=== PATIENT | male | born 1965 | race Caucasian/White ===

== ENCOUNTER 2016-09-24 22:24 | Inpatient (IN) ==
--- NOTE | 2016-09-25 00:18 | Emergency Department Note ---
Disposition Clinical Impression: Colon cancer, ARAM (acute kidney injury), Dehydration Disposition: Admitted As Inpatient Condition: Fair Time of Disposition: 05:08 General Adult HPI - General Chief complaint: ED General Medical Stated complaint: cramping in hand/legs/ nausea Time Seen by Provider: 09/25/16 00:14 Source: patient Mode of arrival: private vehicle Limitations: no limitations Nursing Notes Reviewed: Yes Vital Signs Reviewed: Yes - History of Present Illness HPI Narrative: 51-year-old male patient presents to the emergency department with cramping in his hands and lower extremities. Patient states that he is concerned that he is possibly dehydrated. He also describes some intermittent nausea with vomiting and abdominal pain. Patient states that the abdominal pain is normal for him, as he is status post partial colectomy secondary to rectal cancer. Patient was diagnosed approximately 10 years ago, he is not currently undergoing any chemotherapy. He has not had any issues with his colostomy site. He denies any chest pain or shortness of breath. He denies any fever, chills, cough or night sweats. Patient states a very significant decrease in appetite over the last 3 days and "have not been able to eat or drink, or keep anything down the last 24 hours." Onset (ago): day(s) (3) Location: other (Generalized) Radiation: non-radiation Pain Severity: moderate Pain Scale: 6 Quality: aching, dull, constant Consistency: constant Improves with: nothing Worsens with: nothing Associated symptoms: Reports: loss of appetite, nausea/vomiting Treatments Prior to Arrival: none - Related Data Previous Rx's Medication Instructions Recorded Megestrol Acetate [Megace] 400 mg PO DAILY #300 mls 01/03/16 Amlodipine [Norvasc] 10 mg PO DAILY #30 tablet 08/16/16 Lisinopril [Zestril] 5 mg PO DAILY #30 tablet 08/16/16 Metoclopramide [Reglan] 10 mg PO QIDAC #60 tablet 08/16/16 OLANZapine [Zyprexa Zydis] 5 mg PO HS #30 tab.rapdis 08/16/16 Pantoprazole Sodium [Protonix] 40 mg PO Q12H #60 tablet. 08/16/16 Promethazine [Phenergan] 12.5 mg PO Q6HR PRN #20 tablet 08/16/16 Sennosides/Docusate Sodium [Senna 1 each PO BID #30 tablet 08/16/16 Plus] Oxycodone HCl [Oxycontin] 80 mg PO Q12H #120 tab.er.12h 08/23/16 Magnesium Oxide [Mag-Ox] 400 mg PO DAILY #10 tablet 09/12/16 Oxycodone HCl [Roxicodone 30 MG 1 - 2 tab PO Q6HR PRN #180 tab 09/13/16 Immed Release] Sulfamethoxazole/Trimeth DS 1 each PO BID #14 tablet 09/13/16 [Bactrim DS] Amoxicillin/Clavulanate [Augmentin] 875 mg PO BIDWM #14 tablet 09/24/16 Ondansetron ODT [Zofran ODT] 1 - 2 tab PO Q6H #30 tab.rapdis 09/24/16 Allergies Allergy/AdvReac Type Severity Reaction Status Date / Time meperidine [From Demerol] Allergy Vomiting Verified 09/25/16 03:50 nalbuphine [From Nubain] Allergy See Verified 09/24/16 22:46 Comments All systems ED: reviewed and negative except as stated. Constitutional: Denies: fever, chills Cardiovascular: Denies: chest pain Respiratory: Denies: cough, dyspnea Gastrointestinal: Reports: nausea, vomiting. Denies: abdominal pain, diarrhea, constipation Musculoskeletal: Denies: back pain, neck pain Integumentary: Denies: rash, abrasion, lesions Neurological: Denies: headache Psychiatric: Denies: anxiety, depression, suicidal thoughts, homicidal thoughts Past Medical History - Past Medical History Attestation: Yes The following information was validated with the patient. Source: patient, nursing notes reviewed Medical history: Reports: arthritis, cancer, GERD, hyperlipidemia, hypertension , malignancy, osteoporosis, renal disease Surgical history: Reports: cancer surgery, colectomy, colostomy, prostatectomy, other Psychiatric history: Reports: no psych history - Social History Smoking Status: Never smoker Smokeless Tobacco Status: No Alcohol use: Reports: none Drug use: Reports: none Physical Exam - General Limitations: no limitations General appearance: alert, in no apparent distress - Head Head exam: atraumatic, normocephalic, normal inspection - Eye Eye exam: Present: normal appearance, PERRL - Neck Neck exam: Present: normal inspection, full ROM, trachea midline - Chest Chest inspection: Present: normal inspection, symmetric chest wall rise - Respiratory Respiratory exam: Present: normal lung sounds bilaterally. Absent: respiratory distress, wheezes, stridor, accessory muscle use - Cardiovascular Cardiovascular exam: Present: regular rate, normal rhythm, normal heart sounds - Abdominal Exam Abdominal exam: Present: soft, Non-Tender, normal bowel sounds, other ( Colostomy bag noted, no corresponding erythema or cellulitis. Nephrostomy tubes noted no evidence of infection.). Absent: distention, guarding, rebound, rigidity - Extremities Exam Extremities exam: Present: normal inspection, full ROM - Neurological Exam Neurological exam: Present: alert, oriented X3 - Psychiatric Psychiatric exam: Present: normal affect, normal mood - Skin Skin exam: Present: warm, dry, intact, normal color Course - Consultations Consultation #1: Discussed patient with hospitalist, he accepts. Vital Signs Temperature 97.2 F L 09/24/16 22:46 Pulse Rate 100 09/24/16 22:46 Respiratory Rate 18 09/24/16 22:46 Blood Pressure 84/61 09/24/16 22:46 O2 Sat by Pulse Oximetry 96 09/24/16 22:46 Temperature 0 F L 09/25/16 04:27 Pulse Rate 82 09/25/16 03:47 Respiratory Rate 16 09/25/16 04:27 Blood Pressure 93/63 09/25/16 04:27 O2 Sat by Pulse Oximetry 100 09/25/16 03:47 Oxygen Delivery Oxygen Delivery Room Air Medical Decision Making - Lab Data Lab results reviewed: Yes I reviewed the patient's lab results. Result diagrams: 09/25/16 00:43 09/25/16 00:43 Lab Results 09/25/16 09/25/16 09/25/16 Range/Units 00:43 00:43 02:06 WBC 14.5 H D (4.3-11.1) K/mcL RBC 4.65 (4.19-5.50) M/mcL Hgb 12.9 D (12.9-16.9) g/dL Hct 41.1 (37.5-50.1) % MCV 88.4 (83.0-100.0) fL MCH 27.7 L (28.0-33.3) pg MCHC 31.4 L (31.6-35.5) g/dL RDW 15.3 H (11.5-14.5) % Plt Count 565 H D (140-400) K/mcL MPV 10.1 (9.4-12.4) fL Immature Gran % 1.2 (0-4) % Seg Neutrophils % 81.5 % Lymphocytes % 11.4 % Monocytes % 5.3 % Eosinophils % 0.1 % Basophils % 0.5 % Neutrophils # 11.8 H (1.6-8.9) K/mcL Lymphocytes # 1.7 (0.6-4.6) K/mcL Monocytes # 0.8 (0.0-1.3) K/mcL Eosinophils # 0.0 (0.0-0.6) K/mcL Basophils # 0.1 (0.0-0.2) K/mcL Sodium 129 L (136-145) mEq/L Potassium 4.5 (3.5-4.5) mEq/L Chloride 95 L (98-109) mEq/L Carbon Dioxide 13 L (19-29) mEq/L BUN 36 H (8-26) mg/dL Creatinine 3.80 H (0.72-1.25) mg/dL Est GFR ( Amer) 20 L (> 60) Est GFR (Non-Af Amer) 17 L (> 60) BUN/Creatinine Ratio 9 (6-26) Glucose 135 H (70-99) mg/dL Calculated Osmolality 278 L (280-300) Calcium 9.9 (8.6-10.8) mg/dL Total Bilirubin 0.3 (0.2-1.2) mg/dL AST 12 (5-34) Units/L ALT 12 (0-55) Units/L Alkaline Phosphatase 115 (38-126) Units/L Serum Total Protein 9.5 H (6.0-8.3) g/dL Albumin 3.4 L (3.5-5.0) g/dL Globulin 6.1 H (2.4-3.5) g/dL Albumin/Globulin Ratio 0.6 L (1.1-2.2) Urine Color Red A (Yellow) Urine Clarity Turbid A (Clear) Urine pH 7.0 (5.0-8.0) pH Units Ur Specific [place] 1.019 (1.010-1.025) Urine Protein >=300 H (Neg-Trace) mg/dL Urine Glucose (UA) Normal (Normal) mg/dL Urine Ketones Trace H (Negative) mg/dL Urine Blood Large H (Negative) Urine Nitrite Negative (Negative) Urine Bilirubin Small H (Negative) Urine Urobilinogen Normal (Normal) mg/dL Ur Leukocyte Esterase Large H (Negative) Urine Microscopic RBC 0-3 (0-3) per hpf Urine Microscopic WBC TNTC H (0-3) per hpf Ur Squamous Epith Cells Many H (None-Few) per lpf Urine Bacteria Many H (None-Few) per hpf Hyaline Casts None Seen (None-Few) per lpf Urine Yeast Many H (None Seen) per hpf Ur Culture Indicated? YES A (NO) Attestation Statement - Attestation Attestation: Dr. Davis note: Patient seen in conjunction with JUDE Diaz; please see his chart for complete documentation. I spent [id number] time with the patient and I agree with the patient's treatment and disposition. Patient has had vomiting for the past 3 days. No pain no diarrhea. He has had small bowel obstructions which were nonsurgical incident. The time he had abdominal pain and has no abdominal pain at this time. At baseline he is on chemotherapy for bowel cancer. No altered mental status. No neutropenia. No headache or neck stiffness. Admitted in stabilized and improved condition for acute renal insufficiency secondary to volume loss and dehydration. Any additional consults will be at the discretion of the hospitalist
[2016-09-25] MEDS ORDERED: Ondansetron 4 MG/2 ML VIAL IV ONE (00:23)
[2016-09-25] MEDS ORDERED: 0.9 % Sodium Chloride 2,000 ML IVC ONE (00:23)
[2016-09-25] MEDS ORDERED: *HR* HYDROmorphone (PF) 1 MG/ML SYRINGE IV ONE ×2 (00:23→02:13)
[2016-09-25 00:50] LABS: Basophils # 0.1 K/mcL (0.0-0.2); Basophils % 0.5 %; Eosinophils % 0.1 %; Hematocrit 41.1 % (37.5-50.1); Hemoglobin 12.9 g/dL (12.9-16.9); Immature Granulocytes % 1.2 % (0-4); Lymphocytes # 1.7 K/mcL (0.6-4.6); Lymphocytes % 11.4 %; Mean Corpuscular HGB Conc 31.4 g/dL (31.6-35.5); Mean Corpuscular Hemoglobin 27.7 pg (28.0-33.3); Mean Corpuscular Volume 88.4 fL (83.0-100.0); Mean Platelet Volume 10.1 fL (9.4-12.4); Monocytes # 0.8 K/mcL (0.0-1.3); Monocytes % 5.3 %; Neutrophils # 11.8 K/mcL (1.6-8.9); Platelet Count 565 K/mcL (140-400); Red Blood Count 4.65 M/mcL (4.19-5.50); Red Cell Distribution Width 15.3 % (11.5-14.5); Segmented Neutrophils % 81.5 %
[2016-09-25 01:05] LABS: Albumin 3.4 g/dL (3.5-5.0); Albumin/Globulin Ratio 0.6 (1.1-2.2); Bilirubin,Total 0.3 mg/dL (0.2-1.2); Calcium 9.9 mg/dL (8.6-10.8); Globulin 6.1 g/dL (2.4-3.5); Potassium 4.5 mEq/L (3.5-4.5); Total Protein 9.5 g/dL (6.0-8.3)
[2016-09-25 02:22] LABS: Bilirubin,Urine Small (Negative); Blood,Urine Large (Negative); Clarity,Urine Turbid (Clear); Color,Urine Red (Yellow); Glucose,Urine (UA) Normal (Normal); Ketones,Urine Trace mg/dL (Negative); Leukocyte Esterase,Urine Large (Negative); Nitrite,Urine Negative (Negative); Protein,Urine >=300 mg/dL (Neg-Trace); Specific Gravity,Urine 1.019 (1.010-1.025); Urobilinogen,Urine Normal (Normal)
[2016-09-25 02:24] LABS: Bacteria,Urine Many per hpf (None-Few); Squamous Epithelial Cell,Urine Many per lpf (None-Few); WBC,Urine TNTC per hpf (0-3)
[2016-09-25 02:45] LABS: Hyaline Casts,Urine None Seen per lpf (None-Few); RBC,Urine 0-3 per hpf (0-3); Yeast,Urine Many per hpf (None Seen)
[2016-09-25] MEDS ORDERED: 0.9 % Sodium Chloride 1,000 ML IVC ONE (02:57)
[2016-09-25] MEDS ORDERED: *HR* Meperidine 50 MG/ML SYRINGE IVP ONE (03:24)
[2016-09-25] MEDS ORDERED: *HR* Promethazine 25 MG/ML VIAL IVP ONE (03:37)
[2016-09-25] MEDS ORDERED: Metoclopramide 10 MG/2 ML VIAL IV ONE (03:37)
[2016-09-25 08:14] LABS: Hematocrit 29.8 % (37.5-50.1); Mean Corpuscular HGB Conc 32.6 g/dL (31.6-35.5); Mean Corpuscular Hemoglobin 28.4 pg (28.0-33.3); Mean Corpuscular Volume 87.4 fL (83.0-100.0); Mean Platelet Volume 9.7 fL (9.4-12.4); Platelet Count 305 K/mcL (140-400); Red Blood Count 3.41 M/mcL (4.19-5.50); Red Cell Distribution Width 15.1 % (11.5-14.5)
[2016-09-25 08:16] LABS: Hemoglobin 9.7 g/dL (12.9-16.9)
[2016-09-25 08:25] LABS: Potassium 4.2 mEq/L (3.5-4.5)
[2016-09-25 08:26] LABS: Calcium 7.8 mg/dL (8.6-10.8)
[2016-09-25] MEDS: *HR* Morphine 2 MG/ML SYRINGE IVP PRN ×3 (08:43→23:45)
[2016-09-25] MEDS: 0.9 % Sodium Chloride 1,000 ML IVC SCH ×2 (08:43→20:06)
[2016-09-25] MEDS: *HR* OxyCODONE ER (12 HR) 40 MG TABLET PO SCH ×2 (11:59→20:02)
[2016-09-25] MEDS ORDERED: *HR* Promethazine 25 MG/ML VIAL IVP PRN (13:39)
[2016-09-25] MEDS ORDERED: Ondansetron 4 MG/2 ML VIAL IVP PRN (13:39)
[2016-09-25] MEDS ORDERED: Naloxone 0.4 MG/ML INJ IVP PRN (13:39)
[2016-09-25] MEDS ORDERED: 0.9 % Sodium Chloride 1,000 ML IVC SCH (13:45)
--- NOTE | 2016-09-25 13:48 | Internal Med History&Physical ---
Date of Encounter: 09/27/16 Time of Encounter: 13:47 Assessment and Plan (1) ARAM (acute kidney injury) Current visit: Yes Status: Acute Likely secondary to Dehydration improving creat. will continue present treatment. (2) Dehydration Current visit: Yes Status: Acute likely pre renal and will continue fluids (3) Nausea & vomiting Current visit: No Status: Acute improved with present medications Qualifiers: Vomiting type: unspecified Vomiting Intractability: unspecified Qualified Code(s): R11.2 - Nausea with vomiting, unspecified (4) Urinary tract infection Current visit: No Status: Acute on Ceftraxione. Qualifiers: Urinary tract infection type: catheter-associated UTI Indwelling urinary catheter type: nephrostomy catheter Encounter type: subsequent encounter Qualified Code(s): T83.512D - Infection and inflammatory reaction due to nephrostomy catheter, subsequent encounter; N39.0 - Urinary tract infection, site not specified Internal Medicine - H&P: HPI Chief complaint: dehydration Admitted From: Emergency Dept Plans for Post Hospital Care: Home History of present illness: Oncologist : Dr Jhonny Linn PMH: Multiple comorbid conditions, rectal cancer, Colotomy bag and bilateral nephrostomy tubes present. HPI: came to ER for worsening cramping in upper lower extremities and extreme dehydration. was having persistent nausea and vomiting. Did not eat for more than 2 days. denies chest pain, palpitations or diarrhea. course in ER : evaluated in ER and noted that he has ARAM likely secondary to prerenal issue. reason for admission : Acute worsening dehydration with ARAM Past Med Surg Social Fam HX - Past Medical History Medical history: arthritis, cancer, GERD, hyperlipidemia, hypertension, malignancy, osteoporosis, renal disease Psychiatric history: no psych history - Past Surgical History Surgical History: cancer surgery, colectomy, colostomy, prostatectomy, other - Social History Smoking Status: Never smoker Smokeless Tobacco Status: No Alcohol use: none Drug use: none - Family History Son Living Status: Still Living Hx Family Cancer: Yes (mother had breast cancer) Internal Medicine - H&P: Meds Megestrol Acetate [Megace] 400 mg PO DAILY #300 mls 01/03/16 [Rx] Amlodipine [Norvasc] 10 mg PO DAILY #30 tablet 08/16/16 [Rx] Lisinopril [Zestril] 5 mg PO DAILY #30 tablet 08/16/16 [Rx] Metoclopramide [Reglan] 10 mg PO QIDAC #60 tablet 08/16/16 [Rx] OLANZapine [Zyprexa Zydis] 5 mg PO HS #30 tab.rapdis 08/16/16 [Rx] Pantoprazole Sodium [Protonix] 40 mg PO Q12H #60 tablet. 08/16/16 [Rx] Promethazine [Phenergan] 12.5 mg PO Q6HR PRN #20 tablet 08/16/16 [Rx] Sennosides/Docusate Sodium [Senna Plus] 1 each PO BID #30 tablet 08/16/16 [Rx] Oxycodone HCl [Oxycontin] 80 mg PO Q12H #120 tab.er.12h 08/23/16 [Rx] Magnesium Oxide [Mag-Ox] 400 mg PO DAILY #10 tablet 09/12/16 [Rx] Oxycodone HCl [Roxicodone 30 MG Immed Release] 1 - 2 tab PO Q6HR PRN #180 tab [Rx] Amoxicillin/Clavulanate [Augmentin] 875 mg PO BIDWM #14 tablet 09/24/16 [Rx] Ondansetron ODT [Zofran ODT] 1 - 2 tab PO Q6H #30 tab.rapdis 09/24/16 [Rx] Allergies meperidine [From Demerol] Allergy (Verified 09/25/16 03:50) Vomiting nalbuphine [From Nubain] Allergy (Verified 09/24/16 22:46) See Comments All Systems PM: A 10-system review of systems was performed and is negative for pertinent findings except as documented above in the HPI. - Constitutional Constitutional: no chills, no fever(s), no night sweats - EENT Eyes: no change in vision, no discharge, no pain, no photophobia Ears: no ear discharge, no ear pain, no tinnitus Nose, mouth and throat: no dysphagia, no nasal discharge, no neck pain, no sore throat - Cardiovascular Cardiovascular ROS IM: no chest pain, no diaphoresis, no dyspnea, no lightheadedness, no palpitations, no syncope - Respiratory Respiratory: no cough, no dyspnea, no wheezing, no excessive phlegm production - Gastrointestinal Gastrointestinal: no abdominal pain, no diarrhea, no hematemesis, no hematochezia, no melena, no nausea, no vomiting - Musculoskeletal Musculoskeletal ROS IM: no numbness, no tingling - Integumentary Integumentary IM: no rash, no unusual bruising - Neurological Neurological ROS: no confusion, no convulsions, no focal weakness, no numbness, no tingling, no tremor(s) - Hematologic/Lymphatic Hematologic/Lymphatic: no easy bruising - Constitutional Vitals: Temp Pulse Resp BP Pulse Ox 98.8 F 70 16 95/59 100 09/25/16 11:47 09/25/16 11:47 09/25/16 11:47 09/25/16 11:47 09/25/16 11:47 General appearance: Present: A&O X 3, pleasant, no acute distress, answers questions appropriately - Head Head exam: Present: atraumatic, normocephalic - Eye Eye exam: Present: PERRL, conjuntiva pink, sclera anicteric Pupils: Present: PERRL - Neck Neck exam general surgery: Present: supple, trachea midline. Absent: lymphadenopathy - Respiratory Respiratory exam: Present: CTAB. Absent: accessory muscle use, rales, rhonchi, wheezes - Cardiovascular Cardiovascular exam: Present: RRR, +S1, +S2. Absent: diastolic murmur, gallop, rubs, systolic murmur - GI/Abdominal GI/Abdominal exam: Present: normal bowel sounds, soft, no peritoneal signs. Absent: distended, tenderness - Extremities Exam Extremities exam: Present: warm, radial pulses palpable and symetrical. Absent : calf tenderness, cyanotic, pedal edema - Neurological Exam Neurological exam: Present: CN II-XII intact, oriented X3, no focal deficits. Absent: pronater drift, facial droop, speech deficit - Skin Skin exam: Present: dry, intact Internal Med - H&P Results - Labs CBC & Chem 7: 09/27/16 05:02 09/27/16 05:02 Labs: Short CBC 09/25/16 Range/Units 08:04 WBC 8.7 (4.3-11.1) K/mcL Hgb 9.7 L D (12.9-16.9) g/dL Hct 29.8 L (37.5-50.1) % Plt Count 305 (140-400) K/mcL BMP 09/25/16 08:04 Sodium 131 L Potassium 4.2 Chloride 106 Carbon Dioxide 13 L BUN 37 H Creatinine 2.78 H Glucose 91 Calcium 7.8 L D - Impressions ITS Impressions Retroperitoneum Ultrasound 09/25/16 10:30 IMPRESSION: Severe right-sided hydronephrosis. There appear to be shadowing calculi within the left kidney without hydronephrosis. Incidental note made of cholelithiasis. D/ / Juan M Schwartz MD / Juan M Schwartz MD Interpreting Provider: Juan M Schwartz MD
[2016-09-25] MEDS: OLANZapine 5 MG TAB.RAPDIS PO SCH (20:03)
[2016-09-26] MEDS: *HR* Morphine 2 MG/ML SYRINGE IVP PRN ×5 (03:55→21:24)
[2016-09-26 04:01] LABS: Basophils % 0.7 %; Eosinophils % 0.5 %; Hematocrit 27.6 % (37.5-50.1); Hemoglobin 8.7 g/dL (12.9-16.9); Immature Granulocytes % 0.7 % (0-4); Lymphocytes # 1.1 K/mcL (0.6-4.6); Lymphocytes % 19.6 %; Mean Corpuscular HGB Conc 31.5 g/dL (31.6-35.5); Mean Corpuscular Hemoglobin 28.3 pg (28.0-33.3); Mean Corpuscular Volume 89.9 fL (83.0-100.0); Mean Platelet Volume 9.7 fL (9.4-12.4); Monocytes # 0.5 K/mcL (0.0-1.3); Monocytes % 8.9 %; Platelet Count 246 K/mcL (140-400); Red Blood Count 3.07 M/mcL (4.19-5.50); Segmented Neutrophils % 69.6 %
[2016-09-26 04:28] LABS: Albumin/Globulin Ratio 0.6 (1.1-2.2); Bilirubin,Total 0.2 mg/dL (0.2-1.2); Calcium 7.9 mg/dL (8.6-10.8); Chol/HDL Ratio 3.3 (0-4.9); Globulin 3.9 g/dL (2.4-3.5); Magnesium 1.1 mg/dL (1.6-2.6); Potassium 4.2 mEq/L (3.5-4.5)
[2016-09-26 04:29] LABS: Albumin 2.2 g/dL (3.5-5.0); Total Protein 6.1 g/dL (6.0-8.3)
[2016-09-26] MEDS: *HR* OxyCODONE ER (12 HR) 40 MG TABLET PO SCH ×2 (05:41→18:08)
[2016-09-26] MEDS: Pantoprazole 40 MG VIAL IVP SCH (08:27)
[2016-09-26] MEDS: amLODIPine 5 MG TABLET PO SCH (08:28)
[2016-09-26] MEDS: 0.9 % Sodium Chloride 1,000 ML IVC SCH ×2 (08:28→18:08)
--- NOTE | 2016-09-26 09:25 | Internal Med Progress Note ---
Date of Encounter: 09/26/16 Time of Encounter: 09:22 - Assessment and plan (1) ARAM (acute kidney injury) Current Visit: Yes Status: Acute Assessment and plan: Likely secondary to Dehydration improving creat. will continue present treatment. 09/26/2016 creat continue to improve clinically feeling better tolerated liquid by mouth and did not throw up. will continue IV fluids and will advance diet. (2) Dehydration Current Visit: Yes Status: Acute Assessment and plan: skin turger is better eating well. (3) Nausea & vomiting Current Visit: No Status: Acute Assessment and plan: improved a lot. did not had any vomiting since admission tolerating liquid diet and will advance diet. Qualifiers: Vomiting type: unspecified Vomiting Intractability: unspecified Qualified Code(s): R11.2 - Nausea with vomiting, unspecified (4) Urinary tract infection Current Visit: No Status: Acute Assessment and plan: will continue abx Ceftriaxone Day 2 urine culture grossly contaminated and unable to read will continue IV abx for 3 days. will continue oral followed. all together for 7 days. Qualifiers: Urinary tract infection type: catheter-associated UTI Indwelling urinary catheter type: nephrostomy catheter Encounter type: subsequent encounter Qualified Code(s): T83.512D - Infection and inflammatory reaction due to nephrostomy catheter, subsequent encounter; N39.0 - Urinary tract infection, site not specified - Subjective Interval history: seen and examined. no new complaints. has sacral ulcer and will get wound care - Constitutional Vitals: Temp Pulse Resp BP Pulse Ox 98.1 F 64 16 96/58 99 09/26/16 08:00 09/26/16 08:00 09/26/16 08:00 09/26/16 08:00 09/26/16 08:00 General appearance: Present: A&O X 3, pleasant, no acute distress, answers questions appropriately - Head Head exam: Present: atraumatic, normocephalic - Eye Eye exam: Present: PERRL, conjuntiva pink, sclera anicteric Pupils: Present: PERRL - Neck Neck exam general surgery: Present: supple, trachea midline. Absent: lymphadenopathy - Respiratory Respiratory exam: Present: CTAB. Absent: accessory muscle use, rales, rhonchi, wheezes - Cardiovascular Cardiovascular exam: Present: RRR, +S1, +S2. Absent: diastolic murmur, gallop, rubs, systolic murmur - GI/Abdominal GI/Abdominal exam: Present: normal bowel sounds, soft, no peritoneal signs. Absent: distended, tenderness - Extremities Exam Extremities exam: Present: warm, radial pulses palpable and symetrical. Absent : calf tenderness, cyanotic, pedal edema - Neurological Exam Neurological exam: Present: CN II-XII intact, oriented X3, no focal deficits. Absent: pronater drift, facial droop, speech deficit - Skin Skin exam: Present: dry, intact Internal Medicine: Result - Labs CBC & Chem 7: 09/26/16 03:45 09/26/16 03:45 Labs: Short CBC 09/26/16 Range/Units 03:45 WBC 5.7 (4.3-11.1) K/mcL Hgb 8.7 L (12.9-16.9) g/dL Hct 27.6 L (37.5-50.1) % Plt Count 246 (140-400) K/mcL Neutrophils # 4.0 (1.6-8.9) K/mcL BMP 09/26/16 03:45 Sodium 137 Potassium 4.2 Chloride 114 H Carbon Dioxide 14 L BUN 24 D Creatinine 1.84 H Glucose 85 Calcium 7.9 L Liver Function 09/26/16 Range/Units 03:45 Total Bilirubin 0.2 (0.2-1.2) mg/dL AST 11 (5-34) Units/L ALT 8 (0-55) Units/L Alkaline Phosphatase 70 (38-126) Units/L Albumin 2.2 L D (3.5-5.0) g/dL - Impressions Impressions Retroperitoneum Ultrasound 09/25/16 10:30 IMPRESSION: Severe right-sided hydronephrosis. There appear to be shadowing calculi within the left kidney without hydronephrosis. Incidental note made of cholelithiasis. D/ / Juan M Schwartz MD / Juan M Schwartz MD Interpreting Provider: Juan M Schwartz MD Consult Discharge Plan - Plan Referrals: NO,PCP [Primary Care Provider] -
[2016-09-26] MEDS: OLANZapine 5 MG TAB.RAPDIS PO SCH (21:24)
[2016-09-27] MEDS: *HR* Morphine 2 MG/ML SYRINGE IVP PRN ×5 (01:17→21:35)
[2016-09-27] MEDS: 0.9 % Sodium Chloride 1,000 ML IVC SCH ×3 (04:55→10:57)
[2016-09-27 05:11] LABS: Basophils # 0.1 K/mcL (0.0-0.2); Basophils % 0.9 %; Eosinophils # 0.1 K/mcL (0.0-0.6); Eosinophils % 1.6 %; Hematocrit 29.3 % (37.5-50.1); Hemoglobin 9.1 g/dL (12.9-16.9); Immature Granulocytes % 0.9 % (0-4); Lymphocytes # 1.2 K/mcL (0.6-4.6); Lymphocytes % 21.1 %; Mean Corpuscular HGB Conc 31.1 g/dL (31.6-35.5); Mean Corpuscular Hemoglobin 28.1 pg (28.0-33.3); Mean Corpuscular Volume 90.4 fL (83.0-100.0); Mean Platelet Volume 9.9 fL (9.4-12.4); Monocytes # 0.5 K/mcL (0.0-1.3); Monocytes % 9.1 %; Neutrophils # 3.8 K/mcL (1.6-8.9); Platelet Count 262 K/mcL (140-400); Red Blood Count 3.24 M/mcL (4.19-5.50); Segmented Neutrophils % 66.4 %
[2016-09-27] MEDS: *HR* OxyCODONE ER (12 HR) 40 MG TABLET PO SCH ×2 (05:57→18:51)
[2016-09-27 08:33] LABS: BUN/Creatinine Ratio 10 (6-26); Calcium 7.8 mg/dL (8.6-10.8); Carbon Dioxide 13 mEq/L (19-29); Chloride 115 mEq/L (98-109); Glucose 89 mg/dL (70-99); Osmolality,Calculated 279 (280-300); Potassium 4.4 mEq/L (3.5-4.5); Sodium 135 mEq/L (136-145); eGFR For African Americans > 60 (> 60); eGFR For Non-African Americans > 60 (> 60)
[2016-09-27 08:34] LABS: Blood Urea Nitrogen 12 mg/dL (8-26)
[2016-09-27] MEDS: amLODIPine 5 MG TABLET PO SCH (08:39)
[2016-09-27] MEDS: Pantoprazole 40 MG VIAL IVP SCH (08:39)
--- NOTE | 2016-09-27 16:44 | Oncology Inp Consult Note ---
Date of Encounter: 09/27/16 Time of Encounter: 12:00 Assessment and Plan (1) Colon cancer Status: Chronic Assessment and plan: Metastatic colon cancer, status post multiple surgeries and chemotherapy currently on palliative cetuximab weekly tolerated with hospitalization with infections or renal insufficiency, anemia. Acute renal insufficiency prerenal component, resolving with hydration. Nausea and vomiting has improved. He is able to keep at this oral intake today. Advance diet as tolerated. Retroperitoneal ultrasound showing a right hydronephrosis. Nephrostomy tubes were changed in July 2016, drainage appears to be clear. To be evaluated by urology for any intervention. Chemotherapy held today due to hospitalization/infectious episodes. Kgsdrtipv-[id number]-e/p transfusion recently, Hgb stable, no evidence clinically for bleeding Discussed plan of care with patient and attending in charge Dr Orourke. Qualifiers: Colon location: overlapping sites Qualified Code(s): C18.8 - Malignant neoplasm of overlapping sites of colon - Data of Consult Requesting Physician: Damon Orourke MD Primary Care Provider: PCP NO - Consult Narrative Reason for consult: metastatic colon cancer History of present illness: PAtient with rectal cancer diagnosed in 2006, s/p neoadjuvant chemotherapy and radiation with 5-FU, followed by a resection and permanent colostomy at [facility] followed by additional therapy with FOLFOX. Ct in February 23, 2013 showed moderate presacral soft tissue density which was approximately 3 cm. There was a rightward nodular enhancement withn concern for malignancy and recommendation for PET-CT. PET showed a hypermetabolic right presacral soft tissue mass with concern for recurrent disease, and recommendation for biopsy. He received cycle 1 on 04/17/2013 complicated by skin reaction and severe nausea , bx sowed KRAS wild type and so panitumumab was added to cycle 2 given on 05/01 without 5-FU bolus. He had severe skin toxicity from 5-FU and transitioned to irinotecan plus panitumumab. Completed 4 cycles of FOLFIRI + panitumumab with marked decline in his CEA and some improvement in his MRI. He had pelvic exenteration in July 2013 where he was found to have bony involvement that was jama[place]-knifed and clipped at the time of surgery. He had adjuvant radiation to a small field in his pelvis along the bone with xeloda but CEA would rise on his radiation. received a single dose of Panitumumab on 11/10/2013. This was complicated by severe diarrhea, fatigue, and a break from his radiation for a week. He was continued without additional panitumumab and completed radiation in November 2013. He developed bilateral ureteral obstruction and renal failure. s/ p bilateral percutaneous stents placed and treated for urosepsis. He was taken to the operating room for lysis of adhesions and stenting of his ureters in July 2014. neeeding external drainage. Pathology from his surgery was negative for recurrence but his CEA has been steadily rising. He has had pelvic abscess and was drained by IR and placed on ABX for MRSA. He has had continued increase in his CEA. CT from October 2014 showed his complex pelvic fluid collection and some shotty LAD but no obvious mass. He has had a CT-guided biopsy of this area which has confirmed recurrent adenocarcinoma. Surgery has stated there is no options for him surgically. He has been on weekly cetuximab with normalization of his CEA. He has developed a large stage IV sacral decubitus ulcer. 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 During prior hospitalization, his cultures have grown linette. He was hospitalized 08/10--had positive urine cultures with linette species, was admitted for intractable nausea and vomiting, along with abdominal pain secondary to underlying malignancy and constipation. Patient continued his outpatient treatment for the drained pelvic abscess with Linezolid. He was treated with Micafungin for UTI. Constipation was resolved after initiation of laxatives. He was Rx with linezolid a s/p nephrostomy tubes changed Ct no hydro, stable soft tissue changes in the pelvis 08/10 Patient was hospitalized due to poor oral intake nausea vomiting and acute renal insufficiency. His creatinine was up to 3 when he was hospitalized with hydration improved He has felt slightly better every day as his lab parameters have shown improvement. The discoloration of drainage in nephrostomy?tube that has now cleared on abx Past Med Surg Social Fam HX - Past Medical History Medical history: arthritis, cancer, GERD, hyperlipidemia, hypertension, malignancy, osteoporosis, renal disease Psychiatric history: no psych history - Past Surgical History Surgical History: cancer surgery, colectomy, colostomy, prostatectomy, other - Social History Smoking Status: Never smoker Smokeless Tobacco Status: No Alcohol use: none Drug use: none - Family History Son Living Status: Still Living Hx Family Cancer: Yes (mother had breast cancer) Medications and Allergies Megestrol Acetate [Megace] 400 mg PO DAILY #300 mls 01/03/16 [Rx] Amlodipine [Norvasc] 10 mg PO DAILY #30 tablet 08/16/16 [Rx] Lisinopril [Zestril] 5 mg PO DAILY #30 tablet 08/16/16 [Rx] Metoclopramide [Reglan] 10 mg PO QIDAC #60 tablet 08/16/16 [Rx] OLANZapine [Zyprexa Zydis] 5 mg PO HS #30 tab.rapdis 08/16/16 [Rx] Pantoprazole Sodium [Protonix] 40 mg PO Q12H #60 tablet.dr 08/16/16 [Rx] Promethazine [Phenergan] 12.5 mg PO Q6HR PRN #20 tablet 08/16/16 [Rx] Sennosides/Docusate Sodium [Senna Plus] 1 each PO BID #30 tablet 08/16/16 [Rx] Oxycodone HCl [Oxycontin] 80 mg PO Q12H #120 tab.er.12h 08/23/16 [Rx] Magnesium Oxide [Mag-Ox] 400 mg PO DAILY #10 tablet 09/12/16 [Rx] Oxycodone HCl [Roxicodone 30 MG Immed Release] 1 - 2 tab PO Q6HR PRN #180 tab [Rx] Amoxicillin/Clavulanate [Augmentin] 875 mg PO BIDWM #14 tablet 09/24/16 [Rx] Ondansetron ODT [Zofran ODT] 1 - 2 tab PO Q6H #30 tab.rapdis 09/24/16 [Rx] Allergies meperidine [From Demerol] Allergy (Verified 09/25/16 03:50) Vomiting nalbuphine [From Nubain] Allergy (Verified 09/24/16 22:46) See Comments Review of systems: as in HPI. Generalized wkness and fatigue. Pain rt lower abd from tumor. Oncology - Exam - Constitutional Vitals: Temp Pulse Resp BP Pulse Ox 97.2 F L 74 16 107/65 100 09/27/16 15:55 09/27/16 15:55 09/27/16 15:55 09/27/16 15:55 09/27/16 15:55 General appearance: thin Exam: fatigued, pallor+ - Head Head exam: Present: atraumatic, normal inspection - Eye Eye exam: Present: sclera anicteric - ENT ENT exam: Present: mucous membranes moist - Neck Neck exam: Present: full ROM - Respiratory Respiratory exam: Present: CTAB - Cardiovascular Cardiovascular exam: Present: +S1, +S2 - GI/Abdominal GI/Abdominal exam: Present: normal bowel sounds, soft Additional comments: nephrostomy bags clear drainage. IRINA drain with whitish material - Extremities Exam Extremities exam: Present: normal inspection - Neurological Exam Neurological exam: Present: alert, CN II-XII intact, oriented X3, no focal deficits Oncology - Results - Labs Labs: Short CBC 09/27/16 Range/Units 05:02 WBC 5.7 (4.3-11.1) K/mcL Hgb 9.1 L (12.9-16.9) g/dL Hct 29.3 L (37.5-50.1) % Plt Count 262 (140-400) K/mcL Neutrophils # 3.8 (1.6-8.9) K/mcL BMP 09/27/16 05:02 Sodium 135 L Potassium 4.4 Chloride 115 H Carbon Dioxide 13 L BUN 12 D Creatinine 1.18 Glucose 89 Calcium 7.8 L Consult Discharge Plan - Plan Referrals: NO,PCP [Primary Care Provider] -
--- NOTE | 2016-09-27 17:54 | Internal Med Progress Note ---
Date of Encounter: 09/27/16 Time of Encounter: 17:51 - Assessment and plan (1) ARAM (acute kidney injury) Current Visit: Yes Status: Acute Assessment and plan: Likely secondary to Dehydration improving creat. will continue present treatment. 09/26/2016 creat continue to improve clinically feeling better tolerated liquid by mouth and did not throw up. will continue IV fluids and will advance diet. 09/27/2016 creat normalized. will get Urology tomorrow for hydronephrosis on right side. case discussed with Dr Barry (2) Dehydration Current Visit: Yes Status: Acute Assessment and plan: skin turger is better eating well. (3) Nausea & vomiting Current Visit: No Status: Acute Assessment and plan: improved a lot. did not had any vomiting since admission tolerating liquid diet and will advance diet. Qualifiers: Vomiting type: unspecified Vomiting Intractability: unspecified Qualified Code(s): R11.2 - Nausea with vomiting, unspecified (4) Urinary tract infection Current Visit: No Status: Acute Assessment and plan: will continue abx Ceftriaxone Day 3 urine culture grossly contaminated and unable to read will continue IV abx for 3 days. will continue oral followed. all together for 7 days. Qualifiers: Urinary tract infection type: catheter-associated UTI Indwelling urinary catheter type: nephrostomy catheter Encounter type: subsequent encounter Qualified Code(s): T83.512D - Infection and inflammatory reaction due to nephrostomy catheter, subsequent encounter; N39.0 - Urinary tract infection, site not specified - Subjective Interval history: seen and examined. no new complaints. has sacral ulcer and will get wound care 09/27/2016 no new complaints. eating well no nausea or vomiting. - Constitutional Vitals: Temp Pulse Resp BP Pulse Ox 97.2 F L 74 16 107/65 100 09/27/16 15:55 09/27/16 15:55 09/27/16 15:55 09/27/16 15:55 09/27/16 15:55 General appearance: Present: A&O X 3, pleasant, no acute distress, answers questions appropriately - Head Head exam: Present: atraumatic, normocephalic - Eye Eye exam: Present: PERRL, conjuntiva pink, sclera anicteric Pupils: Present: PERRL - Neck Neck exam general surgery: Present: supple, trachea midline. Absent: lymphadenopathy - Respiratory Respiratory exam: Present: CTAB. Absent: accessory muscle use, rales, rhonchi, wheezes - Cardiovascular Cardiovascular exam: Present: RRR, +S1, +S2. Absent: diastolic murmur, gallop, rubs, systolic murmur - GI/Abdominal GI/Abdominal exam: Present: normal bowel sounds, soft, no peritoneal signs. Absent: distended, tenderness - Extremities Exam Extremities exam: Present: warm, radial pulses palpable and symetrical. Absent : calf tenderness, cyanotic, pedal edema - Neurological Exam Neurological exam: Present: CN II-XII intact, oriented X3, no focal deficits. Absent: pronater drift, facial droop, speech deficit - Skin Skin exam: Present: dry, intact Internal Medicine: Result - Labs CBC & Chem 7: 09/27/16 05:02 09/27/16 05:02 Labs: Short CBC 09/27/16 Range/Units 05:02 WBC 5.7 (4.3-11.1) K/mcL Hgb 9.1 L (12.9-16.9) g/dL Hct 29.3 L (37.5-50.1) % Plt Count 262 (140-400) K/mcL Neutrophils # 3.8 (1.6-8.9) K/mcL BMP 09/27/16 05:02 Sodium 135 L Potassium 4.4 Chloride 115 H Carbon Dioxide 13 L BUN 12 D Creatinine 1.18 Glucose 89 Calcium 7.8 L - VTE Documentation of Mechanical Device: Intermittent pneumatic compression device Consult Discharge Plan - Plan Referrals: NO,PCP [Primary Care Provider] -
[2016-09-27] MEDS: OLANZapine 5 MG TAB.RAPDIS PO SCH (20:24)
[2016-09-28] MEDS: 0.9 % Sodium Chloride 1,000 ML IVC SCH ×3 (01:48→22:43)
[2016-09-28] MEDS: *HR* Morphine 2 MG/ML SYRINGE IVP PRN ×3 (01:48→15:15)
[2016-09-28 03:52] LABS: Basophils # 0.1 K/mcL (0.0-0.2); Basophils % 0.7 %; Eosinophils # 0.1 K/mcL (0.0-0.6); Eosinophils % 1.3 %; Hematocrit 30.8 % (37.5-50.1); Hemoglobin 9.7 g/dL (12.9-16.9); Lymphocytes # 1.4 K/mcL (0.6-4.6); Lymphocytes % 20.8 %; Mean Corpuscular HGB Conc 31.5 g/dL (31.6-35.5); Mean Corpuscular Hemoglobin 28.4 pg (28.0-33.3); Mean Corpuscular Volume 90.1 fL (83.0-100.0); Mean Platelet Volume 9.6 fL (9.4-12.4); Monocytes # 0.5 K/mcL (0.0-1.3); Monocytes % 7.8 %; Neutrophils # 4.7 K/mcL (1.6-8.9); Platelet Count 278 K/mcL (140-400); Red Blood Count 3.42 M/mcL (4.19-5.50); Segmented Neutrophils % 68.4 %
[2016-09-28 04:06] LABS: Alanine Aminotransferase 7 Units/L (0-55); Albumin 2.2 g/dL (3.5-5.0); Albumin/Globulin Ratio 0.5 (1.1-2.2); Alkaline Phosphatase 64 Units/L (38-126); Aspartate Amino Transferase 10 Units/L (5-34); BUN/Creatinine Ratio 8 (6-26); Bilirubin,Total 0.1 mg/dL (0.2-1.2); Blood Urea Nitrogen 9 mg/dL (8-26); Calcium 8.1 mg/dL (8.6-10.8); Carbon Dioxide 14 mEq/L (19-29); Chloride 117 mEq/L (98-109); Globulin 4.4 g/dL (2.4-3.5); Glucose 97 mg/dL (70-99); Osmolality,Calculated 287 (280-300); Potassium 4.3 mEq/L (3.5-4.5); Sodium 139 mEq/L (136-145); Total Protein 6.6 g/dL (6.0-8.3); eGFR For African Americans > 60 (> 60); eGFR For Non-African Americans > 60 (> 60)
[2016-09-28] MEDS: *HR* OxyCODONE ER (12 HR) 40 MG TABLET PO SCH ×2 (06:07→17:48)
[2016-09-28] MEDS: amLODIPine 5 MG TABLET PO SCH (08:47)
[2016-09-28] MEDS: Pantoprazole 40 MG VIAL IVP SCH (08:47)
[2016-09-28] MEDS ORDERED: 0.9 % Sodium Chloride 500 ML ONE (13:38)
--- NOTE | 2016-09-28 14:36 | IR Procedure Note ---
Date of procedure: 09/28/16 Consent Obtained: Written consent Timeout: Correct patient and procedure verified, Correct site verified, Time out performed, Skin prep completed Local anesthetic: Lidocaine 1% Indications: Right hydro, tube maintenance Procedure Performed: Exchange bilateral pcn and urostomy Results/Findings: Rt PCN out, able to recanalize and place pcn. report to follow Complications: None; Tolerated procedure well (Monitor on floor)
--- NOTE | 2016-09-28 17:59 | Urology - Consult Note ---
Date of Encounter: 09/28/16 Time of Encounter: 17:57 - Assessment and Plan (1) Hydronephrosis Current Visit: Yes Status: Acute Assessment and plan: Bilateral nephrostomy tubes currently in place draining clear urine. No further urological intervention needed. 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 Patient has been managed with bilateral nephrostomy tubes for the past 3 years. He is currently undergoing chemotherapy for metastatic colon cancer. He arrived to the hospital and found a renal ultrasound to have significant right-sided hydronephrosis. Patient was not dilated by interventional radiology and the nephrostomy tube was repositioned. Patient is feeling much better. Past Med Surg Social Fam HX - Past Medical History Medical history: arthritis, cancer, GERD, hyperlipidemia, hypertension, malignancy, osteoporosis, renal disease Psychiatric history: no psych history - Past Surgical History Surgical History: cancer surgery, colectomy, colostomy, prostatectomy, other - Social History Smoking Status: Never smoker Smokeless Tobacco Status: No Alcohol use: none Drug use: none - Family History Son Living Status: Still Living Hx Family Cancer: Yes (mother had breast cancer) Medications and Allergies Megestrol Acetate [Megace] 400 mg PO DAILY #300 mls 01/03/16 [Rx] Amlodipine [Norvasc] 10 mg PO DAILY #30 tablet 08/16/16 [Rx] Lisinopril [Zestril] 5 mg PO DAILY #30 tablet 08/16/16 [Rx] Metoclopramide [Reglan] 10 mg PO QIDAC #60 tablet 08/16/16 [Rx] OLANZapine [Zyprexa Zydis] 5 mg PO HS #30 tab.rapdis 08/16/16 [Rx] Pantoprazole Sodium [Protonix] 40 mg PO Q12H #60 tablet. 08/16/16 [Rx] Promethazine [Phenergan] 12.5 mg PO Q6HR PRN #20 tablet 08/16/16 [Rx] Sennosides/Docusate Sodium [Senna Plus] 1 each PO BID #30 tablet 08/16/16 [Rx] Oxycodone HCl [Oxycontin] 80 mg PO Q12H #120 tab.er.12h 08/23/16 [Rx] Magnesium Oxide [Mag-Ox] 400 mg PO DAILY #10 tablet 09/12/16 [Rx] Oxycodone HCl [Roxicodone 30 MG Immed Release] 1 - 2 tab PO Q6HR PRN #180 tab [Rx] Amoxicillin/Clavulanate [Augmentin] 875 mg PO BIDWM #14 tablet 09/24/16 [Rx] Ondansetron ODT [Zofran ODT] 1 - 2 tab PO Q6H #30 tab.rapdis 09/24/16 [Rx] Allergies meperidine [From Demerol] Allergy (Verified 09/25/16 03:50) Vomiting nalbuphine [From Nubain] Allergy (Verified 09/24/16 22:46) See Comments Review of Systems - Constitutional no chills - EENT Nose, mouth and throat: no dizziness - Cardiovascular no chest pain - Respiratory no cough - Gastrointestinal abdominal pain - Musculoskeletal no back pain - Integumentary no erythema - Neurological no confusion Exam Initial Vital Signs Temp Pulse Resp BP Pulse Ox 97.2 F L 100 18 84/61 96 09/24/16 22:46 09/24/16 22:46 09/24/16 22:46 09/24/16 22:46 09/24/16 22:46 - General physical appearance Present: well developed - Eyes Present: PERRL - ENT Present: normal nares - Neck Present: no masses - Respiratory Present: normal respiratory effort - Cardiovascular Cardiovascular exam IM: RRR - Abdomen Abdomen: Present: soft - Additional Findings back: bilateral pcn tubes in place. Urology Results - Labs 09/28/16 02:30 09/28/16 02:30 Abnormal lab results RBC 3.42 M/mcL (4.19-5.50) L 09/28/16 02:30 Hgb 9.7 g/dL (12.9-16.9) L 09/28/16 02:30 Hct 30.8 % (37.5-50.1) L 09/28/16 02:30 MCHC 31.5 g/dL (31.6-35.5) L 09/28/16 02:30 RDW 15.0 % (11.5-14.5) H 09/28/16 02:30 Chloride 117 mEq/L (98-109) H 09/28/16 02:30 Carbon Dioxide 14 mEq/L (19-29) L 09/28/16 02:30 Calcium 8.1 mg/dL (8.6-10.8) L 09/28/16 02:30 Magnesium 1.1 mg/dL (1.6-2.6) L 09/26/16 03:45 Total Bilirubin 0.1 mg/dL (0.2-1.2) L 09/28/16 02:30 Albumin 2.2 g/dL (3.5-5.0) L 09/28/16 02:30 Globulin 4.4 g/dL (2.4-3.5) H 09/28/16 02:30 Albumin/Globulin Ratio 0.5 (1.1-2.2) L 09/28/16 02:30 HDL Cholesterol 26 mg/dL (40-59) L 09/26/16 03:45 Urine Color Red (Yellow) A 09/25/16 02:06 Urine Clarity Turbid (Clear) A 09/25/16 02:06 Urine Protein >=300 mg/dL (Neg-Trace) H 09/25/16 02:06 Urine Ketones Trace mg/dL (Negative) H 09/25/16 02:06 Urine Blood Large (Negative) H 09/25/16 02:06 Urine Bilirubin Small (Negative) H 09/25/16 02:06 Ur Leukocyte Esterase Large (Negative) H 09/25/16 02:06 Urine Microscopic WBC TNTC per hpf (0-3) H 09/25/16 02:06 Ur Squamous Epith Cells Many per lpf (None-Few) H 09/25/16 02:06 Urine Bacteria Many per hpf (None-Few) H 09/25/16 02:06 Urine Yeast Many per hpf (None Seen) H 09/25/16 02:06 Ur Culture Indicated? YES (NO) A 09/25/16 02:06 Diabetes panel 09/28/16 Range/Units 02:30 Sodium 139 (136-145) mEq/L Potassium 4.3 (3.5-4.5) mEq/L Chloride 117 H (98-109) mEq/L Carbon Dioxide 14 L (19-29) mEq/L BUN 9 (8-26) mg/dL Creatinine 1.16 (0.72-1.25) mg/dL Glucose 97 (70-99) mg/dL Calcium 8.1 L (8.6-10.8) mg/dL AST 10 (5-34) Units/L ALT 7 (0-55) Units/L Alkaline Phosphatase 64 (38-126) Units/L Albumin 2.2 L (3.5-5.0) g/dL Calcium panel 09/28/16 Range/Units 02:30 Calcium 8.1 L (8.6-10.8) mg/dL Albumin 2.2 L (3.5-5.0) g/dL Pituitary panel 09/28/16 Range/Units 02:30 Sodium 139 (136-145) mEq/L Potassium 4.3 (3.5-4.5) mEq/L Chloride 117 H (98-109) mEq/L Carbon Dioxide 14 L (19-29) mEq/L BUN 9 (8-26) mg/dL Creatinine 1.16 (0.72-1.25) mg/dL Glucose 97 (70-99) mg/dL Calcium 8.1 L (8.6-10.8) mg/dL Adrenal panel 09/28/16 Range/Units 02:30 Sodium 139 (136-145) mEq/L Potassium 4.3 (3.5-4.5) mEq/L Chloride 117 H (98-109) mEq/L Carbon Dioxide 14 L (19-29) mEq/L BUN 9 (8-26) mg/dL Creatinine 1.16 (0.72-1.25) mg/dL Glucose 97 (70-99) mg/dL Calcium 8.1 L (8.6-10.8) mg/dL Total Bilirubin 0.1 L (0.2-1.2) mg/dL AST 10 (5-34) Units/L ALT 7 (0-55) Units/L Alkaline Phosphatase 64 (38-126) Units/L Albumin 2.2 L (3.5-5.0) g/dL All other labs normal. Consult Discharge Plan - Plan Referrals: NO,PCP [Primary Care Provider] -
--- NOTE | 2016-09-28 18:39 | Internal Med Progress Note ---
Date of Encounter: 09/28/16 Time of Encounter: 18:38 - Assessment and plan (1) ARAM (acute kidney injury) Current Visit: Yes Status: Acute Assessment and plan: Likely secondary to Dehydration improving creat. will continue present treatment. 09/26/2016 creat continue to improve clinically feeling better tolerated liquid by mouth and did not throw up. will continue IV fluids and will advance diet. 09/27/2016 creat normalized. will get Urology tomorrow for hydronephrosis on right side. case discussed with Dr Barry 09/28/2016 completely resolved. spoke to IR nephrostomy tubes changed. Urology on board. (2) Dehydration Current Visit: Yes Status: Acute Assessment and plan: skin turger is better eating well. (3) Nausea & vomiting Current Visit: No Status: Acute Assessment and plan: improved a lot. did not had any vomiting since admission tolerating liquid diet and will advance diet. Qualifiers: Vomiting type: unspecified Vomiting Intractability: unspecified Qualified Code(s): R11.2 - Nausea with vomiting, unspecified (4) Urinary tract infection Current Visit: No Status: Acute Assessment and plan: will continue abx Ceftriaxone Day 3 urine culture grossly contaminated and unable to read will continue IV abx for 3 days. will continue oral followed. all together for 7 days. Qualifiers: Urinary tract infection type: catheter-associated UTI Indwelling urinary catheter type: nephrostomy catheter Encounter type: subsequent encounter Qualified Code(s): T83.512D - Infection and inflammatory reaction due to nephrostomy catheter, subsequent encounter; N39.0 - Urinary tract infection, site not specified - Subjective Interval history: seen and examined. no new complaints. has sacral ulcer and will get wound care 09/27/2016 no new complaints. eating well no nausea or vomiting. 09/28/2016 eating well. no new complaints. noted that nephrostomy tubes changed. - Constitutional Vitals: Temp Pulse Resp BP Pulse Ox 97.6 F 80 14 134/75 98 09/28/16 16:19 09/28/16 16:19 09/28/16 16:19 09/28/16 16:19 09/28/16 16:19 General appearance: Present: A&O X 3, pleasant, no acute distress, answers questions appropriately - Head Head exam: Present: atraumatic, normocephalic - Eye Eye exam: Present: PERRL, conjuntiva pink, sclera anicteric Pupils: Present: PERRL - Neck Neck exam general surgery: Present: supple, trachea midline. Absent: lymphadenopathy - Respiratory Respiratory exam: Present: CTAB. Absent: accessory muscle use, rales, rhonchi, wheezes - Cardiovascular Cardiovascular exam: Present: RRR, +S1, +S2. Absent: diastolic murmur, gallop, rubs, systolic murmur - GI/Abdominal GI/Abdominal exam: Present: normal bowel sounds, soft, no peritoneal signs. Absent: distended, tenderness - Extremities Exam Extremities exam: Present: warm, radial pulses palpable and symetrical. Absent : calf tenderness, cyanotic, pedal edema - Neurological Exam Neurological exam: Present: CN II-XII intact, oriented X3, no focal deficits. Absent: pronater drift, facial droop, speech deficit - Skin Skin exam: Present: dry, intact Internal Medicine: Result - Labs CBC & Chem 7: 09/28/16 02:30 09/28/16 02:30 Labs: Short CBC 09/28/16 Range/Units 02:30 WBC 6.8 (4.3-11.1) K/mcL Hgb 9.7 L (12.9-16.9) g/dL Hct 30.8 L (37.5-50.1) % Plt Count 278 (140-400) K/mcL Neutrophils # 4.7 (1.6-8.9) K/mcL BMP 09/28/16 02:30 Sodium 139 Potassium 4.3 Chloride 117 H Carbon Dioxide 14 L BUN 9 Creatinine 1.16 Glucose 97 Calcium 8.1 L Liver Function 09/28/16 Range/Units 02:30 Total Bilirubin 0.1 L (0.2-1.2) mg/dL AST 10 (5-34) Units/L ALT 7 (0-55) Units/L Alkaline Phosphatase 64 (38-126) Units/L Albumin 2.2 L (3.5-5.0) g/dL - Impressions Impressions Nephrostomy Tube Change 09/28/16 00:00 IMPRESSION: 1. Successful recanalization of the tract of the right nephrostomy with placement of a new right 10 [place] nephrostomy catheter. 2. Exchange left nephrostomy catheter and pelvic urostomy as discussed above. D/ / Amrit Marti MD / Amrit Marti MD Interpreting Provider: Amrit Mrati MD Nephrostomy Tube Change 09/28/16 00:00 IMPRESSION: 1. Successful recanalization of the tract of the right nephrostomy with placement of a new right 10 [place] nephrostomy catheter. 2. Exchange left nephrostomy catheter and pelvic urostomy as discussed above. D/ / Amrit Marti MD / Amrit Marti MD Interpreting Provider: Amrit Marti MD Urethrogram 09/28/16 00:00 IMPRESSION: 1. Successful recanalization of the tract of the right nephrostomy with placement of a new right 10 [place] nephrostomy catheter. 2. Exchange left nephrostomy catheter and pelvic urostomy as discussed above. D/ / Amrit Marti MD / Amrit Marti MD Interpreting Provider: Amrit Marti MD - VTE Documentation of Mechanical Device: Intermittent pneumatic compression device Consult Discharge Plan - Plan Referrals: NO,PCP [Primary Care Provider] -
[2016-09-28] MEDS: *HR* OxyCODONE Immed Rel 15 MG TABLET PO PRN (20:04)
[2016-09-28] MEDS: OLANZapine 5 MG TAB.RAPDIS PO SCH (21:40)
[2016-09-29] MEDS: *HR* OxyCODONE Immed Rel 15 MG TABLET PO PRN ×4 (02:12→22:20)
[2016-09-29 04:23] LABS: Hematocrit 28.5 % (37.5-50.1); Hemoglobin 9.1 g/dL (12.9-16.9); Immature Granulocytes % 0.9 % (0-4); Lymphocytes % 21.9 %; Mean Corpuscular HGB Conc 31.9 g/dL (31.6-35.5); Mean Corpuscular Hemoglobin 28.4 pg (28.0-33.3); Mean Corpuscular Volume 89.1 fL (83.0-100.0); Mean Platelet Volume 9.8 fL (9.4-12.4); Platelet Count 273 K/mcL (140-400); Red Cell Distribution Width 14.8 % (11.5-14.5)
[2016-09-29 04:24] LABS: Basophils # 0.1 K/mcL (0.0-0.2); Basophils % 0.9 %; Eosinophils # 0.2 K/mcL (0.0-0.6); Eosinophils % 2.3 %; Lymphocytes # 1.4 K/mcL (0.6-4.6); Monocytes # 0.5 K/mcL (0.0-1.3); Neutrophils # 4.4 K/mcL (1.6-8.9)
[2016-09-29 04:36] LABS: Alanine Aminotransferase 7 Units/L (0-55); Albumin 2.1 g/dL (3.5-5.0); Albumin/Globulin Ratio 0.5 (1.1-2.2); Alkaline Phosphatase 55 Units/L (38-126); Aspartate Amino Transferase 11 Units/L (5-34); BUN/Creatinine Ratio 9 (6-26); Bilirubin,Total 0.3 mg/dL (0.2-1.2); Blood Urea Nitrogen 10 mg/dL (8-26); Calcium 7.8 mg/dL (8.6-10.8); Carbon Dioxide 15 mEq/L (19-29); Chloride 114 mEq/L (98-109); Globulin 4.1 g/dL (2.4-3.5); Glucose 89 mg/dL (70-99); Osmolality,Calculated 283 (280-300); Potassium 4.2 mEq/L (3.5-4.5); Sodium 137 mEq/L (136-145); Total Protein 6.2 g/dL (6.0-8.3); eGFR For African Americans > 60 (> 60); eGFR For Non-African Americans > 60 (> 60)
[2016-09-29] MEDS: *HR* OxyCODONE ER (12 HR) 40 MG TABLET PO SCH ×2 (05:58→20:00)
[2016-09-29] MEDS: Pantoprazole 40 MG VIAL IVP SCH (09:15)
[2016-09-29] MEDS: amLODIPine 5 MG TABLET PO SCH (09:16)
[2016-09-29] MEDS: 0.9 % Sodium Chloride 1,000 ML IVC SCH (09:20)
--- NOTE | 2016-09-29 17:00 | Internal Med Progress Note ---
Date of Encounter: 09/29/16 Time of Encounter: 16:58 - Assessment and plan (1) ARAM (acute kidney injury) Current Visit: Yes Status: Acute Assessment and plan: Likely secondary to Dehydration improving creat. will continue present treatment. 09/26/2016 creat continue to improve clinically feeling better tolerated liquid by mouth and did not throw up. will continue IV fluids and will advance diet. 09/27/2016 creat normalized. will get Urology tomorrow for hydronephrosis on right side. case discussed with Dr Barry 09/28/2016 completely resolved. spoke to IR nephrostomy tubes changed. Urology on board. 09/29/2016 still has cloudy urine in his nephrostomy bag PCN changed yesterday will continue present abx (2) Dehydration Current Visit: Yes Status: Acute Assessment and plan: skin turger is better eating well. (3) Nausea & vomiting Current Visit: No Status: Acute Assessment and plan: improved a lot. did not had any vomiting since admission tolerating liquid diet and will advance diet. Qualifiers: Vomiting type: unspecified Vomiting Intractability: unspecified Qualified Code(s): R11.2 - Nausea with vomiting, unspecified (4) Urinary tract infection Current Visit: No Status: Acute Assessment and plan: will continue abx Ceftriaxone Day 3 urine culture grossly contaminated and unable to read will continue IV abx for 3 days. will continue oral followed. all together for 7 days. Qualifiers: Urinary tract infection type: catheter-associated UTI Indwelling urinary catheter type: nephrostomy catheter Encounter type: subsequent encounter Qualified Code(s): T83.512D - Infection and inflammatory reaction due to nephrostomy catheter, subsequent encounter; N39.0 - Urinary tract infection, site not specified - Subjective Interval history: seen and examined. no new complaints. has sacral ulcer and will get wound care 09/27/2016 no new complaints. eating well no nausea or vomiting. 09/28/2016 eating well. no new complaints. noted that nephrostomy tubes changed. 09/29/2016 still has cloudy urine in his nephrostomy bag PCN changed yesterday will continue present abx - Constitutional Vitals: Temp Pulse Resp BP Pulse Ox 97.5 F L 74 16 97/78 96 09/29/16 16:20 09/29/16 16:20 09/29/16 16:20 09/29/16 16:20 09/29/16 16:20 General appearance: Present: A&O X 3, pleasant, no acute distress, answers questions appropriately - Head Head exam: Present: atraumatic, normocephalic - Eye Eye exam: Present: PERRL, conjuntiva pink, sclera anicteric Pupils: Present: PERRL - Neck Neck exam general surgery: Present: supple, trachea midline. Absent: lymphadenopathy - Respiratory Respiratory exam: Present: CTAB. Absent: accessory muscle use, rales, rhonchi, wheezes - Cardiovascular Cardiovascular exam: Present: RRR, +S1, +S2. Absent: diastolic murmur, gallop, rubs, systolic murmur - GI/Abdominal GI/Abdominal exam: Present: normal bowel sounds, soft, no peritoneal signs. Absent: distended, tenderness - Extremities Exam Extremities exam: Present: warm, radial pulses palpable and symetrical. Absent : calf tenderness, cyanotic, pedal edema - Neurological Exam Neurological exam: Present: CN II-XII intact, oriented X3, no focal deficits. Absent: pronater drift, facial droop, speech deficit - Skin Skin exam: Present: dry, intact Internal Medicine: Result - Labs CBC & Chem 7: 09/29/16 04:14 09/29/16 04:14 Labs: Short CBC 09/29/16 Range/Units 04:14 WBC 6.6 (4.3-11.1) K/mcL Hgb 9.1 L (12.9-16.9) g/dL Hct 28.5 L (37.5-50.1) % Plt Count 273 (140-400) K/mcL Neutrophils # 4.4 (1.6-8.9) K/mcL BMP 09/29/16 04:14 Sodium 137 Potassium 4.2 Chloride 114 H Carbon Dioxide 15 L BUN 10 Creatinine 1.09 Glucose 89 Calcium 7.8 L Liver Function 09/29/16 Range/Units 04:14 Total Bilirubin 0.3 (0.2-1.2) mg/dL AST 11 (5-34) Units/L ALT 7 (0-55) Units/L Alkaline Phosphatase 55 (38-126) Units/L Albumin 2.1 L (3.5-5.0) g/dL - VTE Documentation of Mechanical Device: Intermittent pneumatic compression device Consult Discharge Plan - Plan Referrals: NO,PCP [Primary Care Provider] -
[2016-09-29] MEDS: OLANZapine 5 MG TAB.RAPDIS PO SCH (20:00)
[2016-09-30 04:19] LABS: Basophils # 0.1 K/mcL (0.0-0.2); Eosinophils # 0.2 K/mcL (0.0-0.6); Eosinophils % 3.5 %; Hematocrit 30.2 % (37.5-50.1); Hemoglobin 9.4 g/dL (12.9-16.9); Lymphocytes # 1.5 K/mcL (0.6-4.6); Lymphocytes % 24.1 %; Mean Corpuscular HGB Conc 31.1 g/dL (31.6-35.5); Mean Corpuscular Volume 89.9 fL (83.0-100.0); Mean Platelet Volume 9.8 fL (9.4-12.4); Monocytes # 0.4 K/mcL (0.0-1.3); Monocytes % 6.3 %; Platelet Count 308 K/mcL (140-400); Red Blood Count 3.36 M/mcL (4.19-5.50); Red Cell Distribution Width 14.8 % (11.5-14.5); Segmented Neutrophils % 64.1 %
[2016-09-30] MEDS: *HR* OxyCODONE Immed Rel 15 MG TABLET PO PRN ×3 (04:22→19:39)
[2016-09-30 04:51] LABS: Alanine Aminotransferase 9 Units/L (0-55); Albumin 2.1 g/dL (3.5-5.0); Albumin/Globulin Ratio 0.5 (1.1-2.2); Alkaline Phosphatase 56 Units/L (38-126); Aspartate Amino Transferase 11 Units/L (5-34); BUN/Creatinine Ratio 9 (6-26); Bilirubin,Total 0.1 mg/dL (0.2-1.2); Blood Urea Nitrogen 10 mg/dL (8-26); Calcium 7.9 mg/dL (8.6-10.8); Carbon Dioxide 17 mEq/L (19-29); Chloride 112 mEq/L (98-109); Globulin 4.4 g/dL (2.4-3.5); Glucose 104 mg/dL (70-99); Osmolality,Calculated 283 (280-300); Potassium 3.9 mEq/L (3.5-4.5); Sodium 137 mEq/L (136-145); Total Protein 6.5 g/dL (6.0-8.3); eGFR For African Americans > 60 (> 60); eGFR For Non-African Americans > 60 (> 60)
[2016-09-30] MEDS: *HR* OxyCODONE ER (12 HR) 40 MG TABLET PO SCH ×2 (06:47→18:50)
[2016-09-30] MEDS: amLODIPine 5 MG TABLET PO SCH (08:51)
[2016-09-30] MEDS: Pantoprazole 40 MG VIAL IVP SCH (08:52)
--- NOTE | 2016-09-30 17:59 | Internal Med Progress Note ---
Date of Encounter: 09/30/16 Time of Encounter: 17:57 - Assessment and plan (1) ARAM (acute kidney injury) Current Visit: Yes Status: Acute Assessment and plan: Likely secondary to Dehydration improving creat. will continue present treatment. 09/26/2016 creat continue to improve clinically feeling better tolerated liquid by mouth and did not throw up. will continue IV fluids and will advance diet. 09/27/2016 creat normalized. will get Urology tomorrow for hydronephrosis on right side. case discussed with Dr Barry 09/28/2016 completely resolved. spoke to IR nephrostomy tubes changed. Urology on board. 09/29/2016 still has cloudy urine in his nephrostomy bag PCN changed yesterday will continue present abx 09/30/2016 will continue abx as urine is still cloudy (2) Dehydration Current Visit: Yes Status: Acute Assessment and plan: skin turger is better eating well. (3) Nausea & vomiting Current Visit: No Status: Acute Assessment and plan: improved a lot. did not had any vomiting since admission tolerating liquid diet and will advance diet. Qualifiers: Vomiting type: unspecified Vomiting Intractability: unspecified Qualified Code(s): R11.2 - Nausea with vomiting, unspecified (4) Urinary tract infection Current Visit: No Status: Acute Assessment and plan: will continue abx Ceftriaxone Day 3 urine culture grossly contaminated and unable to read will continue IV abx for 3 days. will continue oral followed. all together for 7 days. Qualifiers: Urinary tract infection type: catheter-associated UTI Indwelling urinary catheter type: nephrostomy catheter Encounter type: subsequent encounter Qualified Code(s): T83.512D - Infection and inflammatory reaction due to nephrostomy catheter, subsequent encounter; N39.0 - Urinary tract infection, site not specified - Subjective Interval history: seen and examined. no new complaints. has sacral ulcer and will get wound care 09/27/2016 no new complaints. eating well no nausea or vomiting. 09/28/2016 eating well. no new complaints. noted that nephrostomy tubes changed. 09/29/2016 still has cloudy urine in his nephrostomy bag PCN changed yesterday will continue present abx 09/30/2016 cloudy urine is getting better. patient is feeling much better. will continue present antibiotics. - Constitutional Vitals: Temp Pulse Resp BP Pulse Ox 97.5 F L 80 16 98/73 97 09/30/16 16:00 09/30/16 16:00 09/30/16 16:00 09/30/16 16:00 09/30/16 16:00 General appearance: Present: A&O X 3, pleasant, no acute distress, answers questions appropriately - Head Head exam: Present: atraumatic, normocephalic - Eye Eye exam: Present: PERRL, conjuntiva pink, sclera anicteric Pupils: Present: PERRL - Neck Neck exam general surgery: Present: supple, trachea midline. Absent: lymphadenopathy - Respiratory Respiratory exam: Present: CTAB. Absent: accessory muscle use, rales, rhonchi, wheezes - Cardiovascular Cardiovascular exam: Present: RRR, +S1, +S2. Absent: diastolic murmur, gallop, rubs, systolic murmur - GI/Abdominal GI/Abdominal exam: Present: normal bowel sounds, soft, no peritoneal signs. Absent: distended, tenderness - Extremities Exam Extremities exam: Present: warm, radial pulses palpable and symetrical. Absent : calf tenderness, cyanotic, pedal edema - Neurological Exam Neurological exam: Present: CN II-XII intact, oriented X3, no focal deficits. Absent: pronater drift, facial droop, speech deficit - Skin Skin exam: Present: dry, intact Internal Medicine: Result - Labs CBC & Chem 7: 09/30/16 04:07 09/30/16 04:07 Labs: Short CBC 09/30/16 Range/Units 04:07 WBC 6.2 (4.3-11.1) K/mcL Hgb 9.4 L (12.9-16.9) g/dL Hct 30.2 L (37.5-50.1) % Plt Count 308 (140-400) K/mcL Neutrophils # 4.0 (1.6-8.9) K/mcL BMP 09/30/16 04:07 Sodium 137 Potassium 3.9 Chloride 112 H Carbon Dioxide 17 L BUN 10 Creatinine 1.12 Glucose 104 H Calcium 7.9 L Liver Function 09/30/16 Range/Units 04:07 Total Bilirubin 0.1 L (0.2-1.2) mg/dL AST 11 (5-34) Units/L ALT 9 (0-55) Units/L Alkaline Phosphatase 56 (38-126) Units/L Albumin 2.1 L (3.5-5.0) g/dL - VTE Documentation of Mechanical Device: Intermittent pneumatic compression device Consult Discharge Plan - Plan Referrals: NO,PCP [Primary Care Provider] -
[2016-09-30] MEDS: OLANZapine 5 MG TAB.RAPDIS PO SCH (19:38)
[2016-10-01] MEDS: *HR* Morphine 2 MG/ML SYRINGE IVP PRN ×2 (01:05→21:45)
[2016-10-01] MEDS: *HR* OxyCODONE Immed Rel 15 MG TABLET PO PRN ×3 (04:56→19:16)
[2016-10-01 04:57] LABS: Basophils # 0.1 K/mcL (0.0-0.2); Basophils % 0.8 %; Eosinophils # 0.2 K/mcL (0.0-0.6); Eosinophils % 3.8 %; Hematocrit 29.8 % (37.5-50.1); Hemoglobin 9.4 g/dL (12.9-16.9); Immature Platelets 1.5 % (1.1-6.1); Lymphocytes # 1.4 K/mcL (0.6-4.6); Lymphocytes % 23.3 %; Mean Corpuscular HGB Conc 31.5 g/dL (31.6-35.5); Mean Corpuscular Hemoglobin 28.2 pg (28.0-33.3); Mean Corpuscular Volume 89.5 fL (83.0-100.0); Monocytes # 0.4 K/mcL (0.0-1.3); Monocytes % 7.2 %; Neutrophils # 3.9 K/mcL (1.6-8.9); Platelet Count 309 K/mcL (140-400); Red Blood Count 3.33 M/mcL (4.19-5.50); Red Cell Distribution Width 14.6 % (11.5-14.5); Segmented Neutrophils % 63.9 %
[2016-10-01 05:18] LABS: Alanine Aminotransferase 9 Units/L (0-55); Albumin 2.2 g/dL (3.5-5.0); Albumin/Globulin Ratio 0.5 (1.1-2.2); Aspartate Amino Transferase 12 Units/L (5-34); BUN/Creatinine Ratio 10 (6-26); Bilirubin,Total 0.2 mg/dL (0.2-1.2); Blood Urea Nitrogen 11 mg/dL (8-26); Calcium 8.1 mg/dL (8.6-10.8); Carbon Dioxide 19 mEq/L (19-29); Chloride 112 mEq/L (98-109); Globulin 4.4 g/dL (2.4-3.5); Glucose 104 mg/dL (70-99); Osmolality,Calculated 286 (280-300); Potassium 3.7 mEq/L (3.5-4.5); Sodium 138 mEq/L (136-145); Total Protein 6.6 g/dL (6.0-8.3); eGFR For African Americans > 60 (> 60); eGFR For Non-African Americans > 60 (> 60)
[2016-10-01 05:57] LABS: Alkaline Phosphatase 58 Units/L (38-126)
[2016-10-01] MEDS: *HR* OxyCODONE ER (12 HR) 40 MG TABLET PO SCH ×2 (06:25→17:48)
[2016-10-01] MEDS: Pantoprazole 40 MG VIAL IVP SCH (10:00)
[2016-10-01] MEDS: amLODIPine 5 MG TABLET PO SCH (10:00)
--- NOTE | 2016-10-01 17:59 | Internal Med Progress Note ---
<Girma Angeles - Last Filed: 10/01/16 17:57> Date of Encounter: 10/01/16 Time of Encounter: 10:45 - Assessment and plan (1) ARAM (acute kidney injury) Current Visit: Yes Status: Acute Assessment and plan: AK I has resolved. Status post rehydration and IRINA drain. Plan: continue monitoring renal function and urine output into nephrostomy bags. (2) Dehydration Current Visit: Yes Status: Acute Assessment and plan: Patient is tolerating po intake of liquid diet. Renal function improved. Plan: - Continue PO intake as tolerated. - Monitor renal function, urine output and physical findings for dehydration. (3) Nausea & vomiting Current Visit: No Status: Acute Assessment and plan: Patient denies nausea or vomiting today, tolerating by mouth intake. Plan: - Continue Cardiac diet. - continue PRN zofran and phenergan Qualifiers: Vomiting type: unspecified Vomiting Intractability: unspecified Qualified Code(s): R11.2 - Nausea with vomiting, unspecified (4) UTI (urinary tract infection) Current Visit: No Status: Acute Assessment and plan: Patient has cloudy urine coming out of the left nephrostomy drain. After placement for hydronephrosis. Plan: - Continue ceftriaxone every 24 hours. started on 09/15/2016 ( day 7) Qualifiers: Urinary tract infection type: catheter-associated UTI Indwelling urinary catheter type: nephrostomy catheter Encounter type: subsequent encounter Qualified Code(s): T83.512D - Infection and inflammatory reaction due to nephrostomy catheter, subsequent encounter; N39.0 - Urinary tract infection, site not specified - Subjective Interval history: Mr. Redmond has been seen and evaluated patient bedside this am. He denies any changes to his health today and says he is as good as he can be right now. He denies any abdominal pain and is tolerating his IRINA drain. He denies any pain in his back, abdomen, shortness of breath or chest pain. He said his wound drain is working appropriately and does not have any concerns at this time. 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 He has no further concerns at this time. - Constitutional Vitals: Temp Pulse Resp BP Pulse Ox 97.4 F L 82 18 94/56 97 10/01/16 15:43 10/01/16 15:43 10/01/16 15:43 10/01/16 15:43 10/01/16 04:00 General appearance: Present: A&O X 3, pleasant, no acute distress, answers questions appropriately - Head Head exam: Present: atraumatic, normocephalic - Eye Eye exam: Present: PERRL - Neck Neck exam general surgery: Present: supple, trachea midline. Absent: lymphadenopathy - Respiratory Respiratory exam: Present: CTAB. Absent: accessory muscle use, rales, rhonchi, wheezes - Cardiovascular Cardiovascular exam: Present: RRR, +S1, +S2. Absent: diastolic murmur, gallop, rubs, systolic murmur - GI/Abdominal Additional comments: Abdomen soft, nontender to palpation, colostomy bag in place with appropriate drainage. Bilateral nephrostomy tubes draining appropriately with yellow urine. Left-sided IRINA drain demonstrates yellow cloudy urine. - Extremities Exam Extremities exam: Present: warm, radial pulses palpable and symetrical. Absent : calf tenderness, cyanotic, pedal edema Additional comments: Poor diffuse muscle tone. Posterior coccyx and wound is appropriately covered by wound VAC and without any drainage or erythema. - Neurological Exam Neurological exam: Present: alert, oriented X3, no focal deficits. Absent: pronater drift, facial droop, speech deficit - Psychiatric Psychiatric exam: Present: normal affect, normal mood Internal Medicine: Result - Labs CBC & Chem 7: 10/01/16 04:32 10/01/16 04:32 Labs: Short CBC 10/01/16 Range/Units 04:32 WBC 6.1 (4.3-11.1) K/mcL Hgb 9.4 L (12.9-16.9) g/dL Hct 29.8 L (37.5-50.1) % Plt Count 309 (140-400) K/mcL Neutrophils # 3.9 (1.6-8.9) K/mcL BMP 10/01/16 04:32 Sodium 138 Potassium 3.7 Chloride 112 H Carbon Dioxide 19 BUN 11 Creatinine 1.05 Glucose 104 H Calcium 8.1 L Liver Function 10/01/16 Range/Units 04:32 Total Bilirubin 0.2 (0.2-1.2) mg/dL AST 12 (5-34) Units/L ALT 9 (0-55) Units/L Alkaline Phosphatase 58 (38-126) Units/L Albumin 2.2 L (3.5-5.0) g/dL - VTE Documentation of Mechanical Device: Intermittent pneumatic compression device Consult Discharge Plan - Plan Referrals: NO,PCP [Primary Care Provider] - <Damon Orourke - Last Filed: 10/01/16 18:35> - Assessment and plan (1) ARAM (acute kidney injury) Current Visit: Yes Status: Acute (2) Dehydration Current Visit: Yes Status: Acute (3) Nausea & vomiting Current Visit: No Status: Acute Qualifiers: Vomiting type: unspecified Vomiting Intractability: unspecified Qualified Code(s): R11.2 - Nausea with vomiting, unspecified (4) Urinary tract infection Current Visit: No Status: Acute Qualifiers: Urinary tract infection type: catheter-associated UTI Indwelling urinary catheter type: nephrostomy catheter Encounter type: subsequent encounter Qualified Code(s): T83.512D - Infection and inflammatory reaction due to nephrostomy catheter, subsequent encounter; N39.0 - Urinary tract infection, site not specified - Constitutional Vitals: Temp Pulse Resp BP Pulse Ox 97.4 F L 82 18 94/56 97 10/01/16 15:43 10/01/16 15:43 10/01/16 15:43 10/01/16 15:43 10/01/16 04:00 Internal Medicine: Result - Labs CBC & Chem 7: 10/01/16 04:32 10/01/16 04:32 Labs: Short CBC 10/01/16 Range/Units 04:32 WBC 6.1 (4.3-11.1) K/mcL Hgb 9.4 L (12.9-16.9) g/dL Hct 29.8 L (37.5-50.1) % Plt Count 309 (140-400) K/mcL Neutrophils # 3.9 (1.6-8.9) K/mcL BMP 10/01/16 04:32 Sodium 138 Potassium 3.7 Chloride 112 H Carbon Dioxide 19 BUN 11 Creatinine 1.05 Glucose 104 H Calcium 8.1 L Liver Function 10/01/16 Range/Units 04:32 Total Bilirubin 0.2 (0.2-1.2) mg/dL AST 12 (5-34) Units/L ALT 9 (0-55) Units/L Alkaline Phosphatase 58 (38-126) Units/L Albumin 2.2 L (3.5-5.0) g/dL - Attending Attestation I examined this patient and my medical decision-making was reviewed with the STRATEGIC MARKETING LEADER/PA/Advanced Practice Nurse/Resident Physician. I agree with the documented findings, disposition and treatment plan as described except to the extent set forth below. persistent cloudy urine in spite of Day 7 abx ( ceftriaxone) and Day 3 change in PCN tube spoke with IR, possible intervention tomorrow
[2016-10-01] MEDS: OLANZapine 5 MG TAB.RAPDIS PO SCH (21:42)
[2016-10-02] MEDS: *HR* OxyCODONE Immed Rel 15 MG TABLET PO PRN ×4 (01:16→21:13)
[2016-10-02] MEDS: *HR* Morphine 2 MG/ML SYRINGE IVP PRN ×2 (03:33→14:07)
[2016-10-02 03:52] LABS: Basophils # 0.1 K/mcL (0.0-0.2); Basophils % 0.8 %; Eosinophils # 0.2 K/mcL (0.0-0.6); Eosinophils % 2.6 %; Hematocrit 30.1 % (37.5-50.1); Hemoglobin 9.6 g/dL (12.9-16.9); Immature Granulocytes % 1.4 % (0-4); Immature Platelets 1.6 % (1.1-6.1); Lymphocytes # 1.6 K/mcL (0.6-4.6); Lymphocytes % 22.1 %; Mean Corpuscular HGB Conc 31.9 g/dL (31.6-35.5); Mean Corpuscular Hemoglobin 28.3 pg (28.0-33.3); Mean Corpuscular Volume 88.8 fL (83.0-100.0); Mean Platelet Volume 10.1 fL (9.4-12.4); Monocytes # 0.5 K/mcL (0.0-1.3); Monocytes % 6.9 %; Neutrophils # 4.9 K/mcL (1.6-8.9); Platelet Count 352 K/mcL (140-400); Red Blood Count 3.39 M/mcL (4.19-5.50); Red Cell Distribution Width 14.6 % (11.5-14.5); Segmented Neutrophils % 66.2 %
[2016-10-02 04:10] LABS: Alanine Aminotransferase 10 Units/L (0-55); Albumin 2.2 g/dL (3.5-5.0); Albumin/Globulin Ratio 0.5 (1.1-2.2); Alkaline Phosphatase 62 Units/L (38-126); Aspartate Amino Transferase 12 Units/L (5-34); BUN/Creatinine Ratio 12 (6-26); Bilirubin,Total 0.2 mg/dL (0.2-1.2); Blood Urea Nitrogen 13 mg/dL (8-26); Calcium 8.1 mg/dL (8.6-10.8); Carbon Dioxide 19 mEq/L (19-29); Chloride 111 mEq/L (98-109); Globulin 4.4 g/dL (2.4-3.5); Glucose 95 mg/dL (70-99); Osmolality,Calculated 286 (280-300); Potassium 4.3 mEq/L (3.5-4.5); Sodium 138 mEq/L (136-145); Total Protein 6.6 g/dL (6.0-8.3); eGFR For African Americans > 60 (> 60); eGFR For Non-African Americans > 60 (> 60)
[2016-10-02] MEDS: *HR* OxyCODONE ER (12 HR) 40 MG TABLET PO SCH ×2 (06:07→18:21)
[2016-10-02] MEDS: amLODIPine 5 MG TABLET PO SCH (07:52)
[2016-10-02] MEDS ORDERED: Heparin 1,000 UNITS/500 mL NS 500 ML ONE (14:05)
--- NOTE | 2016-10-02 17:01 | Internal Med Progress Note ---
<Gavino Zelaya - Last Filed: 10/02/16 16:59> Date of Encounter: 10/02/16 Time of Encounter: 16:59 - Assessment and plan (1) ARAM (acute kidney injury) Current Visit: Yes Status: Acute Assessment and plan: resolved. likely from both pre renal and post renal causes given his N/V and blocked nephrostomy tube. resolved. (2) Dehydration Current Visit: Yes Status: Acute Assessment and plan: resolved. Tolerating a diet. (3) UTI (urinary tract infection) Current Visit: Yes Status: Acute Assessment and plan: urine culuture was mixed dawna. most recent cultures have grown witt sensitive pseudomonas. Currently dose not meet SIRS criteria. Normal WBC count. Afebrile. continue with rocephin. (4) Abdominal fluid collection Current Visit: Yes Status: Acute Assessment and plan: patient has persistnent fluid collection in the pelvis. However afebrile and normal WBC count. Possibly a phlegmon given normal labs and vitals. On rocephin. drain repositioned fluid sent for culture. I did consider increasing coverage of antibiotics given intraabdominal fluid collection. However he is improving clinically. May consider changing to Zosyn and if Culture of pelvic fluid is negative deescalating at that time. (5) Anemia Current Visit: Yes Status: Acute Assessment and plan: etiology is likely secondary to chronic illness. normocytic. however increased RDW so may have a deficiency in hematinics. will check with AM labs. (6) Hypoalbuminemia due to protein-calorie malnutrition Current Visit: Yes Status: Acute Assessment and plan: continue nutrition supplements with meals. (7) Colon cancer Current Visit: Yes Status: Acute Assessment and plan: metastatic S/P multiple surgeries and chemotherapy. now on palliative chemotherapy. currently being held for infection. appreciate Oncologies recommendations. (8) DVT prophylaxis Current Visit: Yes Status: Acute Assessment and plan: patient at risk for DVT given active malignancy and illness. I will add Heparin SQ - Subjective Interval history: No major events over night. This Am the patient states that he is feeling better he denies any N/V. He states that he is tolerating his diet and eating well he denies any pain or discomfort at this time. He has no further complaint. There was concern for possible malfunction of drain that is draining his pelvic abscess. ST of the abdomen with PO/IV contrast revealed continues fluid collection. It was evaluated by IR and is now draining properly. Cultures of fluid were ordered. - Constitutional Vitals: Temp Pulse Resp BP Pulse Ox 98.1 F 90 18 93/66 96 10/02/16 15:35 10/02/16 15:35 10/02/16 15:35 10/02/16 15:35 10/02/16 15:35 General appearance: Present: A&O X 3, pleasant, no acute distress, answers questions appropriately - Head Head exam: Present: atraumatic, normocephalic - Eye Eye exam: Present: PERRL, conjuntiva pink, sclera anicteric Pupils: Present: PERRL - Neck Neck exam general surgery: Present: supple, trachea midline. Absent: lymphadenopathy - Respiratory Respiratory exam: Present: CTAB. Absent: accessory muscle use, rales, rhonchi, wheezes - Cardiovascular Cardiovascular exam: Present: RRR, +S1, +S2. Absent: diastolic murmur, gallop, rubs, systolic murmur - GI/Abdominal Additional comments: soft nontender, ostomy, IRINA and nephrostoly tubes in place. - Extremities Exam Extremities exam: Present: warm, radial pulses palpable and symetrical. Absent : calf tenderness, cyanotic, pedal edema - Skin Skin exam: Present: dry, intact Internal Medicine: Result - Labs CBC & Chem 7: 10/02/16 03:28 10/02/16 03:28 Labs: Short CBC 10/02/16 Range/Units 03:28 WBC 7.4 (4.3-11.1) K/mcL Hgb 9.6 L (12.9-16.9) g/dL Hct 30.1 L (37.5-50.1) % Plt Count 352 (140-400) K/mcL Neutrophils # 4.9 (1.6-8.9) K/mcL BMP 10/02/16 03:28 Sodium 138 Potassium 4.3 Chloride 111 H Carbon Dioxide 19 BUN 13 Creatinine 1.07 Glucose 95 Calcium 8.1 L Liver Function 10/02/16 Range/Units 03:28 Total Bilirubin 0.2 (0.2-1.2) mg/dL AST 12 (5-34) Units/L ALT 10 (0-55) Units/L Alkaline Phosphatase 62 (38-126) Units/L Albumin 2.2 L (3.5-5.0) g/dL - Impressions Impressions Abdomen/Pelvis CT 10/02/16 11:30 IMPRESSION: 1. Overall stable CT abdomen and pelvis with no significant changes since the previous evaluation. 2. Stable bilateral nephrostomy tubes as well as pelvic drain. 3. Redemonstration of infiltrative process in the pelvis as well as retroperitoneal adenopathy. D/ / 10/02/2016 12:42:40 Mamta Villatoro MD / bcarter Interpreting Provider: Mamta Villatoro MD - VTE Documentation of Mechanical Device: Intermittent pneumatic compression device Consult Discharge Plan - Plan Referrals: NO,PCP [Primary Care Provider] - <Damon Orourke P - Last Filed: 10/02/16 18:12> - Assessment and plan (1) ARAM (acute kidney injury) Current Visit: Yes Status: Acute (2) Dehydration Current Visit: Yes Status: Acute (3) Nausea & vomiting Current Visit: No Status: Acute Qualifiers: Vomiting type: unspecified Vomiting Intractability: unspecified Qualified Code(s): R11.2 - Nausea with vomiting, unspecified (4) Urinary tract infection Current Visit: No Status: Acute Qualifiers: Urinary tract infection type: catheter-associated UTI Indwelling urinary catheter type: nephrostomy catheter Encounter type: subsequent encounter Qualified Code(s): T83.512D - Infection and inflammatory reaction due to nephrostomy catheter, subsequent encounter; N39.0 - Urinary tract infection, site not specified - Constitutional Vitals: Temp Pulse Resp BP Pulse Ox 98.1 F 90 18 93/66 96 10/02/16 15:35 10/02/16 15:35 10/02/16 15:35 10/02/16 15:35 10/02/16 15:35 Internal Medicine: Result - Labs CBC & Chem 7: 10/02/16 03:28 10/02/16 03:28 Labs: Short CBC 10/02/16 Range/Units 03:28 WBC 7.4 (4.3-11.1) K/mcL Hgb 9.6 L (12.9-16.9) g/dL Hct 30.1 L (37.5-50.1) % Plt Count 352 (140-400) K/mcL Neutrophils # 4.9 (1.6-8.9) K/mcL BMP 10/02/16 03:28 Sodium 138 Potassium 4.3 Chloride 111 H Carbon Dioxide 19 BUN 13 Creatinine 1.07 Glucose 95 Calcium 8.1 L Liver Function 10/02/16 Range/Units 03:28 Total Bilirubin 0.2 (0.2-1.2) mg/dL AST 12 (5-34) Units/L ALT 10 (0-55) Units/L Alkaline Phosphatase 62 (38-126) Units/L Albumin 2.2 L (3.5-5.0) g/dL - Impressions Impressions Abdomen/Pelvis CT 10/02/16 11:30 IMPRESSION: 1. Overall stable CT abdomen and pelvis with no significant changes since the previous evaluation. 2. Stable bilateral nephrostomy tubes as well as pelvic drain. 3. Redemonstration of infiltrative process in the pelvis as well as retroperitoneal adenopathy. D/ / 10/02/2016 12:42:40 Mamta Villatoro MD / bcarter Interpreting Provider: Mamta Villatoro MD - Attending Attestation I examined this patient and my medical decision-making was reviewed with the [employer] AIRCRAFT MECHANIC/PA/Advanced Practice Nurse/Resident Physician. I agree with the documented findings, disposition and treatment plan as described except to the extent set forth below. CT abd/Pelvis: worsening collection. IRINA drain readjusted and tubid fluid ( like pus) collected in bag. Will get Bag on gravity. will discuss with surgery tomorrow and possible transfer to [facility] for surgical intervention.
[2016-10-02] MEDS: *HR* Heparin 5,000 UNIT/ML VIAL SQ SCH (18:21)
[2016-10-02] MEDS: OLANZapine 5 MG TAB.RAPDIS PO SCH (20:54)
[2016-10-03] MEDS: *HR* OxyCODONE Immed Rel 15 MG TABLET PO PRN ×3 (03:37→16:39)
[2016-10-03 05:14] LABS: BUN/Creatinine Ratio 13 (6-26); Blood Urea Nitrogen 16 mg/dL (8-26); Calcium 7.9 mg/dL (8.6-10.8); Carbon Dioxide 21 mEq/L (19-29); Chloride 110 mEq/L (98-109); Glucose 95 mg/dL (70-99); Osmolality,Calculated 287 (280-300); Potassium 3.9 mEq/L (3.5-4.5); Sodium 138 mEq/L (136-145); eGFR For African Americans > 60 (> 60); eGFR For Non-African Americans 60 (> 60)
[2016-10-03 05:15] LABS: Basophils # 0.1 K/mcL (0.0-0.2); Basophils % 1.2 %; Eosinophils # 0.2 K/mcL (0.0-0.6); Eosinophils % 2.3 %; Hematocrit 28.9 % (37.5-50.1); Immature Granulocytes % 1.4 % (0-4); Lymphocytes # 1.5 K/mcL (0.6-4.6); Lymphocytes % 23.4 %; Mean Corpuscular HGB Conc 31.1 g/dL (31.6-35.5); Mean Corpuscular Hemoglobin 27.8 pg (28.0-33.3); Mean Corpuscular Volume 89.2 fL (83.0-100.0); Mean Platelet Volume 10.3 fL (9.4-12.4); Monocytes # 0.5 K/mcL (0.0-1.3); Monocytes % 7.6 %; Neutrophils # 4.1 K/mcL (1.6-8.9); Platelet Count 310 K/mcL (140-400); Red Blood Count 3.24 M/mcL (4.19-5.50); Red Cell Distribution Width 14.6 % (11.5-14.5); Segmented Neutrophils % 64.1 %
[2016-10-03 05:49] LABS: Folate 7.7 ng/mL (7.0-31.4)
[2016-10-03] MEDS: *HR* OxyCODONE ER (12 HR) 40 MG TABLET PO SCH (06:04)
[2016-10-03] MEDS: *HR* Heparin 5,000 UNIT/ML VIAL SQ SCH (06:04)
[2016-10-03] MEDS: amLODIPine 5 MG TABLET PO SCH (08:42)
--- NOTE | 2016-10-03 10:26 | Discharge Summary ---
<Gavino Zelaya - Last Filed: 10/03/16 15:42> Date of Encounter: 10/03/16 Time of Encounter: 09:10 - Discharge Diagnosis (1) ARAM (acute kidney injury) Priority: Primary Status: Acute (2) Dehydration Priority: Secondary Status: Acute (3) UTI (urinary tract infection) Priority: Secondary Status: Acute (4) Abdominal fluid collection Priority: Secondary Status: Acute (5) Anemia Priority: Secondary Status: Acute (6) Hypoalbuminemia due to protein-calorie malnutrition Priority: Secondary Status: Acute (7) Colon cancer Priority: Secondary Status: Acute (8) DVT prophylaxis Priority: Secondary Status: Acute - Discharge Medications Home Medications: Amlodipine [Norvasc] 10 mg PO DAILY #30 tablet 08/16/16 [Rx] Lisinopril [Zestril] 5 mg PO DAILY #30 tablet 08/16/16 [Rx] OLANZapine [Zyprexa Zydis] 5 mg PO HS #30 tab.rapdis 08/16/16 [Rx] Pantoprazole Sodium [Protonix] 40 mg PO Q12H #60 tablet.dr 08/16/16 [Rx] Promethazine [Phenergan] 12.5 mg PO Q6HR PRN #20 tablet 08/16/16 [Rx] Oxycodone HCl [Oxycontin] 80 mg PO Q12H #120 tab.er.12h 08/23/16 [Rx] Oxycodone HCl [Roxicodone 30 MG Immed Release] 1 - 2 tab PO Q6HR PRN #180 tab [Rx] Ondansetron ODT [Zofran ODT] 1 - 2 tab PO Q6H #30 tab.rapdis 09/24/16 [Rx] Heparin 5,000 unit SQ Q12HCO vial 10/03/16 [Rx] Naloxone [Narcan] 0.4 mg IVP Q2MIN PRN #0 inj 10/03/16 [Rx] Allergies/Adverse Reactions: Allergies meperidine [From Demerol] Allergy (Verified 09/25/16 03:50) Vomiting nalbuphine [From Nubain] Allergy (Verified 09/24/16 22:46) See Comments Procedures/tests Complete & Pending: Procedures Performed prior 72 hours Category Date Time Status CT abd pelvis w iv and oral [CT] Stat Cat Scan 10/02/16 11:30 Completed Date of admission: 10/01/16 18:37 Primary care physician: PCP NO Consults: 10/02/16 11:40 Consult to Physical Therapy [CONS] Routine Comment: Evaluate, develop and implement POC OT [Consult to Occupational Therapy] [CONS] Routine Comment: Evaluate, develop and implement POC Discharging clinician: Gavino Zelaya Anticipated date of discharge: 10/03/16 - Patient Status Disposition: Transfer Other Condition: Fair Functional capacity at discharge: bed bound Overall status at discharge: patient is not back to baseline - Discharge Instructions Instructions: Colorectal Cancer (DC), Colorectal Cancer (GEN), Pressure Ulcer ( DC), Pressure Ulcer (GEN) Follow Up With: NO,PCP [Primary Care Provider] - Forms: ED Satisfaction Letter, Work/School Release - Diet and Activity Activity: as per physical therapy Diet: regular diet Hospital course: Mr. Tabor is a 51 year old male with a significant history of metastatic colon cancer. On palliative chemotherapy. He was admitted for acute renal failure. The etiology was likely from a combination of prerenal ( N/V dehydration) and post renal as he had a malpositioned nephrostomt tube causing right sided hydronephrosis. He has had normalization of his renal function. It was also noted on CT that he had a enlarging fluid collection in the pelvis. The drain was repositioned. Fluid cultures were sent and are pending. He has been on rocephin since admission. He has been afebrile and has had a normal WBC count. There is concern for possible fistula given his multiple abdominal surgeries and radiation.Additionally Gram stain of fluid specimen did reveal GPC. We will transfer him to [facility] to where his surgeon is. Today patient is stable for transfer. He is agreeable to this plan. - Time Spent with Patient Total time spent providing and/or coordinating discharge services: - Constitutional Vitals: Temp Pulse Resp BP Pulse Ox 99.1 F 77 16 91/64 99 10/03/16 07:16 10/03/16 07:16 10/03/16 07:16 10/03/16 07:16 10/03/16 07:16 General appearance: Present: A&O X 3, pleasant, no acute distress, answers questions appropriately - Head Head exam: Present: atraumatic, normal inspection, normocephalic - Eye Eye exam: Present: PERRL, conjuntiva pink, sclera anicteric Pupils: Present: PERRL - Neck Neck exam general surgery: Present: supple, trachea midline. Absent: lymphadenopathy - Respiratory Respiratory exam: Present: CTAB. Absent: accessory muscle use, rales, rhonchi, wheezes - Cardiovascular Cardiovascular exam: Present: RRR, +S1, +S2. Absent: diastolic murmur, gallop, rubs, systolic murmur - GI/Abdominal GI/Abdominal exam: Present: normal bowel sounds, soft, no peritoneal signs. Absent: distended, tenderness Additional comments: ostomy, in place with brown stool. [address] with clear urine. IRINA has cloudy fluid. - Extremities Exam Extremities exam: Present: warm, radial pulses palpable and symetrical. Absent : calf tenderness, cyanotic, pedal edema - Skin Skin exam: Present: dry, intact - VTE Documentation of Mechanical Device: Intermittent pneumatic compression device <Damon Orourke P - Last Filed: 10/03/16 16:59> - Discharge Diagnosis (1) ARAM (acute kidney injury) Status: Acute (2) Dehydration Status: Acute (3) Nausea & vomiting Status: Acute Qualifiers: Vomiting type: unspecified Vomiting Intractability: unspecified Qualified Code(s): R11.2 - Nausea with vomiting, unspecified (4) Urinary tract infection Status: Acute Qualifiers: Urinary tract infection type: catheter-associated UTI Indwelling urinary catheter type: nephrostomy catheter Encounter type: subsequent encounter Qualified Code(s): T83.512D - Infection and inflammatory reaction due to nephrostomy catheter, subsequent encounter; N39.0 - Urinary tract infection, site not specified Procedures/tests Complete & Pending: Procedures Performed prior 72 hours Category Date Time Status CT abd pelvis w iv and oral [CT] Stat Cat Scan 10/02/16 11:30 Completed Date of admission: 10/01/16 18:37 Primary care physician: PCP NO Consults: 10/02/16 11:40 Consult to Physical Therapy [CONS] Routine Comment: Evaluate, develop and implement POC OT [Consult to Occupational Therapy] [CONS] Routine Comment: Evaluate, develop and implement POC Hospital course: Mr. Tabor is a 51 year old male - Time Spent with Patient Total time spent providing and/or coordinating discharge services: - Constitutional Vitals: Temp Pulse Resp BP Pulse Ox 97.8 F 94 16 85/65 97 10/03/16 11:42 10/03/16 11:42 10/03/16 11:42 10/03/16 11:42 10/03/16 11:42 - Attending Attestation I examined this patient and my medical decision-making was reviewed with the MIXER OPERATOR TABLETS/PA/Advanced Practice Nurse/Resident Physician. I agree with the documented findings, disposition and treatment plan as described except to the extent set forth below. Spoke with surgeon Dr Tinajero regading persistent pelvic fluid. He think it is frozen pelvis and need to refer to patient's surgeon at [facility] Called patient's surgeon Dr Shay from [facility]. case discussed at length. she agree for transfer and she will see patient. Patient will be admitted under hospitalist team. Spoken to Dr Caldwell ( hospitalist). discussed with patient and family at length. They agree for transfer plan Transfer to [facility] follow up with [facility] with PCP/Cardiology
[2016-10-03 11:49] VITALS: BP 85/65
== END 2016-10-03 16:50 | disposition other institution (70) | DRG 682 ==
LOC: EMEROO 22:24 → 3ANU 22:24 → SUATTDRO 09-25 04:12 → 3ANU 09-25 04:42 → 2NENU 09-28 18:48
PROVIDERS: ADMIT Internal Medicine; ATTEND Internal Medicine

== ENCOUNTER 2017-06-04 15:08 | Inpatient (IN) ==
[2017-06-04 16:17] LABS: Basophils % 0.3 %; Eosinophils # 0.1 K/mcL (0.0-0.6); Eosinophils % 1.4 %; Hematocrit 25.1 % (37.5-50.1); Immature Granulocytes % 1.2 % (0-4); Lymphocytes # 0.6 K/mcL (0.6-4.6); Lymphocytes % 9.3 %; Mean Corpuscular HGB Conc 30.7 g/dL (31.6-35.5); Mean Corpuscular Hemoglobin 28.7 pg (28.0-33.3); Mean Corpuscular Volume 93.7 fL (83.0-100.0); Mean Platelet Volume 9.2 fL (9.4-12.4); Monocytes # 0.5 K/mcL (0.0-1.3); Monocytes % 7.9 %; Neutrophils # 5.1 K/mcL (1.6-8.9); Platelet Count 141 K/mcL (140-400); Red Blood Count 2.68 M/mcL (4.19-5.50); Red Cell Distribution Width 17.7 % (11.5-14.5); Segmented Neutrophils % 79.9 %
[2017-06-04 16:38] LABS: Albumin/Globulin Ratio 0.4 (1.1-2.2); Bilirubin,Total 0.2 mg/dL (0.2-1.2); Calcium 7.8 mg/dL (8.6-10.8); Globulin 4.5 g/dL (2.4-3.5); Potassium 4.4 mEq/L (3.5-4.5); Total Protein 6.4 g/dL (6.0-8.3)
[2017-06-04 16:41] LABS: Albumin 1.9 g/dL (3.5-5.0); Hemoglobin 7.7 g/dL (12.9-16.9)
[2017-06-04] MEDS ORDERED: Piperacillin/Tazobactam 4.5 GM in D5% in Water (Mini-Bag+) 100 ML IVPB ONE (16:57)
[2017-06-04] MEDS ORDERED: Vancomycin 1,000 MG in D5% in Water 250 ML IVPB ONE (16:57)
[2017-06-04] MEDS: 0.9 % Sodium Chloride 1,000 ML IVC SCH (17:38)
[2017-06-04 17:45] LABS: Magnesium 0.9 mg/dL (1.6-2.6)
--- NOTE | 2017-06-04 18:35 | Venous Imaging Report ---
LE Venous Duplex Patient Name:Raj Tabor Order Number:[id number] Procedure Date:06/04/2017 Date:1965Age:52 yrs Gender:Male Location:[facility] ED Room #: ER28 Chemical Blender:Cheryl Nath MICHOACANO Referring MD:William Stein DO Reading MD:Gavino Dowling MD Primary Indications:r/o DVT Secondary Indications: Impressions: Normal right lower extremity deep and superficial venous exam. Normal contralateral common femoral vein. Recommendations: After imaging the patient returned to their room. Gave vascular preliminary results to William Stein in emergency department on 06/04/2017 at 16:51. Test completed on 06/04/2017 at 4:49:00 pm. Findings Venous Duplex Results: Right: Venous imaging of the lower extremity reveals full patency and normal vessel compressibility of the right distal iliac, right common femoral, right superficial femoral, right popliteal, right posterior tibial, right peroneal, right great saphenous and right lesser saphenous. Doppler signals in the evaluated veins were normal. Left: Venous imaging of the lower extremity reveals full patency and normal vessel compressibility of the left common femoral. Doppler signals in the evaluated veins were normal. Lower Extremity Venous Duplex Side Vein Compress Spontaneous Flow Augment Diameter (cm) Depth (cm) Right Distal Iliac Normal Yes Phasic Yes Right Common Femoral Normal Yes Phasic Yes Right Superficial Femoral Normal Yes Phasic Yes Right Popliteal Normal Yes Phasic Yes Right Posterior Tibial Normal Yes Phasic Yes Right Peroneal Normal Yes Phasic Yes Right Great Saphenous Normal Yes Phasic Yes Right Lesser Saphenous Normal Yes Phasic Yes Left Common Femoral Normal Yes Phasic Yes Updated by Gavino Dowling MD on 06/04/2017 6:27:52 PM electronically signed on 06/04/2017 6:28:00 PM with status of Final
--- NOTE | 2017-06-04 20:38 | Internal Med History&Physical ---
Date of Encounter: 06/04/17 Time of Encounter: 20:34 Assessment and Plan (1) Cellulitis of right lower extremity Current visit: Yes Status: Acute Diagnosed with right lower extremity cellulitis which has failed outpatient treatment. Afebrile with normal white count. Since he failed outpatient treatment therefore I think it is reasonable to keep him on IV vancomycin but we will DC Zosyn. Although he is post-chemotherapy 3 weeks ago but since his white cell count is okay gram-negative coverage would not be warranted however if his cellulitis does not improve and it would be reasonable to add cephalosporin at that time. As noted above leg ultrasound is negative but his whole lower extremity is quite tender to touch therefore will do MRI of right lower extremity to rule out any compartment syndrome. He might need abdominal CT to visualize pelvic blood vessels however since creatinine is elevated it would be reasonable to obtain nephrology consult first before proceeding to a contrasted study. (2) Pressure ulcer of coccygeal region, stage 4 Current visit: Yes Status: Chronic Wound care consulted. He has a IRINA drain and will be continued on chronic doxycycline treatment (3) Metastatic adenocarcinoma to colorectal region Current visit: Yes Status: Chronic Rectal cancer involving bladder status post most colectomy/colostomy, bladder surgeries/ileostomy, bilateral nephrostomy due to failure of ileostomy, removal of sacrum/sacral wound. Is still on chemotherapy. Dr. Barry is his oncologist and morning hospitalist can decide if oncology needs to be consulted. (4) Anemia Current visit: Yes Status: Chronic Chronic anemia. Order Hemoccult and iron. Transfuse 1 unit if hemoglobin goes down below 7. Continued hemoglobin monitoring Qualifiers: Anemia type: unspecified type Qualified Code(s): D64.9 - Anemia, unspecified (5) Hypomagnesemia Current visit: Yes Status: Resolved Secondary to ileostomy will supplement magnesium and recheck in the morning (6) Metabolic acidosis Current visit: Yes Status: Resolved Secondary to ileostomy suggest aggressive hydration (7) Hypertension Current visit: Yes Status: Acute Continue home medication and daily monitoring Qualifiers: Hypertension type: unspecified secondary hypertension Qualified Code(s): I15.9 - Secondary hypertension, unspecified; I15 - Secondary hypertension (8) DVT prophylaxis Current visit: Yes Status: Acute Heparin 5000 3 times a day Internal Medicine - H&P: HPI Chief complaint: Right lower extremity swelling and pain Admitted From: Home Plans for Post Hospital Care: Home History of present illness: Mr. Tabor is a 52 year old male past medical history significant for rectal cancer status post partial colectomy with colostomy, ileostomy after bladder was removed, bilateral nephrostomy after ileostomy did not work, chronic sacral wound after portion of the sacrum bone was removed with IRINA drain now. Also has history of hypertension dyslipidemia and GERD and stage III chronic kidney disease. Patient is currently receiving chemotherapy for his rectal cancer. He is already on doxycycline for his sacral wound. Since Saturday he has noticed that his right lower extremity is getting swollen becoming very painful and red. His primary care placed him on 2 antibiotics including doxycycline which he has been taken chronically. As he did not improve she decided to come to ER with a Doppler venous ultrasound did not show any blood clot or DVT. He was diagnosed with cellulitis and has not spent is started on vancomycin and Zosyn. He denies any chest pain shortness of breath fever chills syncope or any other symptoms otherwise. Patient is a full code. Past Med Surg Social Fam HX - Past Medical History Medical history: arthritis, cancer, GERD, hyperlipidemia, hypertension, malignancy, osteoporosis, renal disease Psychiatric history: no psych history - Past Surgical History Surgical History: cancer surgery, colectomy, colostomy, prostatectomy, other - Social History Smoking Status: Never smoker Smokeless Tobacco Status: No Alcohol use: none Drug use: none - Family History Son Living Status: Still Living Hx Family Cancer: Yes (mother had breast cancer) Internal Medicine - H&P: Meds OLANZapine [Zyprexa Zydis] 5 mg PO HS #30 tab.rapdis 08/16/16 [Rx] Prochlorperazine Maleate [Compazine] 10 mg PO Q8HR PRN #90 tablet 01/16/17 [Rx] Magnesium Oxide 500 mg PO BID #20 capsule 02/08/17 [Rx] Potassium Chloride 20 meq PO DAILY #2 tab.er.prt 02/08/17 [Rx] Dexamethasone [Decadron] 4 mg PO BID #3 tab 03/25/17 [Rx] Amoxicillin/Clavulanate [Augmentin] 875 mg PO BIDWM #28 tablet 04/10/17 [Rx] Doxycycline 100 mg PO BID #60 capsule 05/16/17 [Rx] Oxycodone HCl [Oxycontin] 80 mg PO Q12H #120 tab.er.12h 05/23/17 [Rx] Fentanyl [Duragesic] 50 mcg TD Q72H #10 patch.td72 05/31/17 [Rx] Sulfamethoxazole/Trimeth DS [Bactrim DS] 1 each PO BID #10 tablet 05/31/17 [Rx] Trifluridine/Tipiracil HCl [Lonsurf 20 mg-8.19 mg Tablet] 2 each PO BID #56 tablet 05/31/17 [Rx] Ondansetron ODT [Zofran ODT] 4 - 8 mg PO Q6H 06/04/17 [History] Oxycodone HCl [Roxicodone 30 MG Immed Release] 30 - 60 mg PO Q6HR PRN 06/04/17 [ History] 3 Allergy/AdvReac Type Severity Reaction Status Date / Time meperidine [From Demerol] Allergy Vomiting Verified 06/04/17 15:17 nalbuphine [From Nubain] Allergy See Verified 06/04/17 15:17 Comments All Systems PM: A 10-system review of systems was performed and is negative for pertinent findings except as documented above in the HPI. - Constitutional Constitutional: no chills, no fever(s), no night sweats - EENT Eyes: no change in vision, no discharge, no pain, no photophobia Ears: no ear discharge, no ear pain, no tinnitus Nose, mouth and throat: no dysphagia, no nasal discharge, no neck pain, no sore throat - Cardiovascular Cardiovascular ROS IM: no chest pain, no diaphoresis, no dyspnea, no lightheadedness, no palpitations, no syncope - Respiratory Respiratory: no cough, no dyspnea, no wheezing, no excessive phlegm production - Gastrointestinal Gastrointestinal: no abdominal pain, no diarrhea, no hematemesis, no hematochezia, no melena, no nausea, no vomiting - Musculoskeletal Musculoskeletal ROS IM: no numbness, no tingling - Integumentary Integumentary IM: erythema, no rash, no unusual bruising Additional comments: Patient has a sacral wound which is chronic and is already dressed - Neurological Neurological ROS: no confusion, no convulsions, no focal weakness, no numbness, no tingling, no tremor(s) - Hematologic/Lymphatic Hematologic/Lymphatic: no easy bruising - Constitutional Vitals: Temp Pulse Resp BP Pulse Ox 99.1 F 67 17 152/85 100 06/04/17 20:04 06/04/17 20:04 06/04/17 20:04 06/04/17 20:04 06/04/17 20:04 General appearance: Present: A&O X 3, pleasant, no acute distress, underweight, answers questions appropriately Exam: Chronic sacral wound with packing - Head Head exam: Present: atraumatic, normocephalic - Eye Eye exam: Present: PERRL, conjuntiva pink, sclera anicteric Pupils: Present: PERRL - Neck Neck exam general surgery: Present: supple, trachea midline. Absent: lymphadenopathy - Respiratory Respiratory exam: Present: CTAB. Absent: accessory muscle use, rales, rhonchi, wheezes - Cardiovascular Cardiovascular exam: Present: RRR, +S1, +S2. Absent: diastolic murmur, gallop, rubs, systolic murmur - GI/Abdominal GI/Abdominal exam: Present: normal bowel sounds, soft, no peritoneal signs. Absent: distended, tenderness - Extremities Exam Extremities exam: Present: pedal edema, warm, radial pulses palpable and symmetrical. Absent: calf tenderness, cyanotic Additional comments: Whole right lower extremity is swollen compared to the left side as well as pinkish red up to knee. Quite tender to touch however good pulse. He has a right foot drop which is a chronic finding and have been due to his pelvic surgery. No cyanosis noted. - Neurological Exam Neurological exam: Present: CN II-XII intact, oriented X3, no focal deficits. Absent: pronater drift, facial droop, speech deficit - Skin Skin exam: Present: dry, intact Internal Med - H&P Results - Labs CBC & Chem 7: 06/04/17 16:10 06/04/17 16:10
[2017-06-04] MEDS ORDERED: Ondansetron 4 MG/2 ML VIAL IVP PRN (20:53)
[2017-06-04] MEDS ORDERED: Naloxone 0.4 MG/ML INJ IVP PRN (20:53)
[2017-06-04] MEDS ORDERED: Acetaminophen 325 MG TABLET PO PRN (20:53)
[2017-06-04] MEDS ORDERED: Vancomycin 1,000 MG in D5% in Water 250 ML IVPB SCH (21:00)
[2017-06-04] MEDS ORDERED: *HR* FentaNYL PATCH 50 MCG PATCH TD SCH (21:00)
[2017-06-04] MEDS ORDERED: Sulfamethoxazole/Trimeth DS 1 EACH TABLET PO SCH ×2 (21:00→21:15)
[2017-06-04] MEDS: Magnesium Sulfate 2 GM in D5% in Water 100 ML IVPB SCH (22:11)
[2017-06-04] MEDS: OLANZapine 5 MG TAB.RAPDIS PO SCH (22:12)
[2017-06-04] MEDS: Doxycycline 100 MG CAPSULE PO SCH (22:12)
[2017-06-04] MEDS: *HR* OxyCODONE ER (12 HR) 40 MG TABLET PO SCH (22:12)
[2017-06-04] MEDS: Magnesium Oxide 400 MG TABLET PO SCH (22:12)
[2017-06-05] MEDS: Magnesium Sulfate 2 GM in D5% in Water 100 ML IVPB SCH
--- NOTE | 2017-06-05 00:35 | Emergency Department Note ---
Disposition Clinical Impression: Cellulitis Qualifiers: Site of cellulitis: extremity Site of cellulitis of extremity: lower extremity Laterality: right Qualified Code(s): L03.115 - Cellulitis of right lower limb Disposition: Admitted As Inpatient Condition: Good General Adult HPI - General Chief complaint: ED Extremity Problem,Nontraumatic Stated complaint: RIGHT LEG/FOOT EDEMA Time Seen by Provider: 06/04/17 15:12 Source: patient Nursing Notes Reviewed: Yes Vital Signs Reviewed: Yes - History of Present Illness HPI Narrative: This is a 52-year-old male who was seen at the urgent care yesterday and diagnosed with possible DVT. He was started on anticoagulation. He is admittedly had leg swelling and pain in the right lower extremity below the knee for approximately one week. He does have skin changes, edema. There are good distal pulses. He does have history of foot drop within this foot. No recent travel or injury to the foot. General: No acute distress HEENT: Pupils equal and reactive to light, extraoccular muscle movement is normal, TMS are clear bilaterally. Heart: RRR, No murmor rub or gallop Lungs: lungs clear, no wheezing, rales or ronchi. ABD: SNT, no focal areas or tenderness, no guarding or rebound tenderness. Extremities: +2 pulses over the dorsalis pedis and posterior tibial region of the right foot with significant edema and redness of the right distal lower extremity. Neuro: CN 2-12 in tact, no focal deficit. strength 5/5. Medical decision making Male patient with negative duplex of the right lower extremity. There is evidence of possible cellulitis. Vancomycin was initiated. X-ray shows bony erosions possibly related to renal disease versus osteomyelitis. He will need further testing to rule out ostium myelitis. He is not febrile or tachycardic at this time. Plan to admit after initiation of antibiotics for evaluation of cellulitis in the setting of leg edema and renal failure as well as chronic fracture of the right foot. Pain Scale: 7 - Related Data Home Medications Medication Instructions Recorded Confirmed Ondansetron ODT [Zofran ODT] 4 - 8 mg PO Q6H 06/04/17 06/04/17 Oxycodone HCl [Roxicodone 30 MG 30 - 60 mg PO Q6HR PRN 06/04/17 06/04/17 Immed Release] Previous Rx's Medication Instructions Recorded OLANZapine [Zyprexa Zydis] 5 mg PO HS #30 tab.rapdis 08/16/16 Prochlorperazine Maleate 10 mg PO Q8HR PRN #90 tablet 01/16/17 [Compazine] Magnesium Oxide 500 mg PO BID #20 capsule 02/08/17 Potassium Chloride 20 meq PO DAILY #2 tab.er.prt 02/08/17 Dexamethasone [Decadron] 4 mg PO BID #3 tab 03/25/17 Amoxicillin/Clavulanate [Augmentin] 875 mg PO BIDWM #28 tablet 04/10/17 Doxycycline 100 mg PO BID #60 capsule 05/16/17 Oxycodone HCl [Oxycontin] 80 mg PO Q12H #120 tab.er.12h 05/23/17 Fentanyl [Duragesic] 50 mcg TD Q72H #10 patch.td72 05/31/17 Sulfamethoxazole/Trimeth DS 1 each PO BID #10 tablet 05/31/17 [Bactrim DS] Trifluridine/Tipiracil HCl 2 each PO BID #56 tablet 05/31/17 [Lonsurf 20 mg-8.19 mg Tablet] Allergies Allergy/AdvReac Type Severity Reaction Status Date / Time meperidine [From Demerol] Allergy Vomiting Verified 06/04/17 15:17 nalbuphine [From Nubain] Allergy See Verified 06/04/17 15:17 Comments All systems ED: reviewed and negative except as stated. Past Medical History - Past Medical History Medical history: Reports: arthritis, cancer, GERD, hyperlipidemia, hypertension , malignancy, osteoporosis, renal disease Surgical history: Reports: cancer surgery, colectomy, colostomy, prostatectomy, other Psychiatric history: Reports: no psych history - Social History Smoking Status: Never smoker Smokeless Tobacco Status: No Alcohol use: Reports: none Drug use: Reports: none Physical Exam - General General appearance: alert, in no apparent distress Course Vital Signs Temperature 98.0 F 06/04/17 15:15 Pulse Rate 75 06/04/17 15:15 Respiratory Rate 16 06/04/17 15:15 Blood Pressure 115/75 06/04/17 15:15 O2 Sat by Pulse Oximetry 100 06/04/17 15:15 Temperature 98.8 F 06/04/17 23:30 Pulse Rate 73 06/04/17 23:30 Respiratory Rate 17 06/04/17 23:30 Blood Pressure 113/68 06/04/17 23:30 O2 Sat by Pulse Oximetry 98 06/04/17 23:30 Oxygen Delivery Oxygen Delivery Room Air Medical Decision Making - Lab Data Result diagrams: 06/04/17 16:10 06/04/17 16:10 Lab Results 06/04/17 06/04/17 06/04/17 Range/Units 16:10 16:10 16:10 WBC 6.4 (4.3-11.1) K/mcL RBC 2.68 L (4.19-5.50) M/mcL Hgb 7.7 L (12.9-16.9) g/dL Hct 25.1 L (37.5-50.1) % MCV 93.7 (83.0-100.0) fL MCH 28.7 (28.0-33.3) pg MCHC 30.7 L (31.6-35.5) g/dL RDW 17.7 H (11.5-14.5) % Plt Count 141 (140-400) K/mcL MPV 9.2 L (9.4-12.4) fL Immature Gran % 1.2 (0-4) % Seg Neutrophils % 79.9 % Lymphocytes % 9.3 % Monocytes % 7.9 % Eosinophils % 1.4 % Basophils % 0.3 % Neutrophils # 5.1 (1.6-8.9) K/mcL Lymphocytes # 0.6 (0.6-4.6) K/mcL Monocytes # 0.5 (0.0-1.3) K/mcL Eosinophils # 0.1 (0.0-0.6) K/mcL Basophils # 0.0 (0.0-0.2) K/mcL Immature Plt Fraction 1.0 L (1.1-6.1) % ESR 79 H (0-10) mm/hr Sodium 140 (136-145) mEq/L Potassium 4.4 (3.5-4.5) mEq/L Chloride 115 H (98-109) mEq/L Carbon Dioxide 17 L (19-29) mEq/L BUN 26 (8-26) mg/dL Creatinine 2.63 H (0.72-1.25) mg/dL Est GFR ( Amer) 31 L (> 60) Est GFR (Non-Af Amer) 26 L (> 60) BUN/Creatinine Ratio 10 (6-26) Glucose 93 (70-99) mg/dL Calculated Osmolality 294 (280-300) Calcium 7.8 L (8.6-10.8) mg/dL Ionized Calcium (1.15-1.35) mmol/L Magnesium 0.9 L (1.6-2.6) mg/dL Total Bilirubin 0.2 (0.2-1.2) mg/dL AST 10 (5-34) Units/L ALT 7 (0-55) Units/L Alkaline Phosphatase 73 (38-126) Units/L C-Reactive Protein 159 H (Less than 5) mg/L Serum Total Protein 6.4 (6.0-8.3) g/dL Albumin 1.9 L (3.5-5.0) g/dL Globulin 4.5 H (2.4-3.5) g/dL Albumin/Globulin Ratio 0.4 L (1.1-2.2) 06/04/17 Range/Units 16:10 WBC (4.3-11.1) K/mcL RBC (4.19-5.50) M/mcL Hgb (12.9-16.9) g/dL Hct (37.5-50.1) % MCV (83.0-100.0) fL MCH (28.0-33.3) pg MCHC (31.6-35.5) g/dL RDW (11.5-14.5) % Plt Count (140-400) K/mcL MPV (9.4-12.4) fL Immature Gran % (0-4) % Seg Neutrophils % % Lymphocytes % % Monocytes % % Eosinophils % % Basophils % % Neutrophils # (1.6-8.9) K/mcL Lymphocytes # (0.6-4.6) K/mcL Monocytes # (0.0-1.3) K/mcL Eosinophils # (0.0-0.6) K/mcL Basophils # (0.0-0.2) K/mcL Immature Plt Fraction (1.1-6.1) % ESR (0-10) mm/hr Sodium (136-145) mEq/L Potassium (3.5-4.5) mEq/L Chloride (98-109) mEq/L Carbon Dioxide (19-29) mEq/L BUN (8-26) mg/dL Creatinine (0.72-1.25) mg/dL Est GFR ( Amer) (> 60) Est GFR (Non-Af Amer) (> 60) BUN/Creatinine Ratio (6-26) Glucose (70-99) mg/dL Calculated Osmolality (280-300) Calcium (8.6-10.8) mg/dL Ionized Calcium 1.14 L (1.15-1.35) mmol/L Magnesium (1.6-2.6) mg/dL Total Bilirubin (0.2-1.2) mg/dL AST (5-34) Units/L ALT (0-55) Units/L Alkaline Phosphatase (38-126) Units/L C-Reactive Protein (Less than 5) mg/L Serum Total Protein (6.0-8.3) g/dL Albumin (3.5-5.0) g/dL Globulin (2.4-3.5) g/dL Albumin/Globulin Ratio (1.1-2.2)
[2017-06-05 05:13] LABS: Basophils % 0.3 %; Eosinophils % 0.1 %; Hematocrit 24.9 % (37.5-50.1); Hemoglobin 7.7 g/dL (12.9-16.9); Immature Granulocytes % 2.1 % (0-4); Lymphocytes # 0.5 K/mcL (0.6-4.6); Lymphocytes % 6.5 %; Mean Corpuscular HGB Conc 30.9 g/dL (31.6-35.5); Mean Corpuscular Hemoglobin 28.4 pg (28.0-33.3); Mean Corpuscular Volume 91.9 fL (83.0-100.0); Mean Platelet Volume 9.6 fL (9.4-12.4); Monocytes # 0.1 K/mcL (0.0-1.3); Monocytes % 1.2 %; Platelet Count 155 K/mcL (140-400); Red Blood Count 2.71 M/mcL (4.19-5.50); Red Cell Distribution Width 17.5 % (11.5-14.5); Segmented Neutrophils % 89.8 %
[2017-06-05 05:21] LABS: Magnesium 1.7 mg/dL (1.6-2.6); Phosphorous 4.2 mg/dL (2.3-4.7)
[2017-06-05 05:43] LABS: Thyroid Stimulating Hormone 1.449 mcIU/mL (0.350-4.840)
[2017-06-05] MEDS ORDERED: Sulfamethoxazole/Trimeth DS 1 EACH TABLET PO SCH (09:00)
[2017-06-05] MEDS: TRIFLURIDINE PO SCH ×3 (09:56→21:45)
[2017-06-05] MEDS: TIPIRACIL HCL PO SCH ×3 (09:56→21:45)
[2017-06-05] MEDS: 0.9 % Sodium Chloride 1,000 ML IVC SCH ×2 (10:00)
[2017-06-05] MEDS: Doxycycline 100 MG CAPSULE PO SCH (10:01)
[2017-06-05] MEDS: Magnesium Oxide 400 MG TABLET PO SCH ×2 (10:01→21:43)
[2017-06-05] MEDS: *HR* OxyCODONE ER (12 HR) 40 MG TABLET PO SCH ×2 (10:01→21:43)
[2017-06-05] MEDS ORDERED: Acetaminophen 325 MG TABLET PO PRN (13:12)
[2017-06-05 13:27] LABS: Calcium 7.9 mg/dL (8.6-10.8); Potassium 4.8 mEq/L (3.5-4.5)
[2017-06-05] MEDS: *HR* OxyCODONE Immed Rel 15 MG TABLET PO PRN (14:25)
[2017-06-05] MEDS ORDERED: *HR* HYDROmorphone (PF) 1 MG/ML SYRINGE IVP ONE (16:00)
--- NOTE | 2017-06-05 18:02 | Internal Med Progress Note ---
Date of Encounter: 06/05/17 Time of Encounter: 10:00 - Assessment and plan (1) Cellulitis of right lower extremity Current Visit: Yes Status: Acute Assessment and plan: Continue antbiotics. MRI lower extremities negative for osteomyelitis. Note that had to be done without contrast due to ARAM. (2) ARAM (acute kidney injury) Current Visit: No Status: Acute Assessment and plan: Withhold nephrotoxic agents. Did not give contrast to today's studies. (3) Hypertension Current Visit: Yes Status: Acute Qualifiers: Hypertension type: unspecified secondary hypertension Qualified Code(s): I15.9 - Secondary hypertension, unspecified; I15 - Secondary hypertension (4) Anemia Current Visit: Yes Status: Chronic Qualifiers: Anemia type: unspecified type Qualified Code(s): D64.9 - Anemia, unspecified (5) Metastatic adenocarcinoma to colorectal region Current Visit: Yes Status: Chronic (6) Pressure ulcer of coccygeal region, stage 4 Current Visit: Yes Status: Chronic (7) Anemia Current Visit: No Status: Acute Qualifiers: Anemia type: unspecified type Qualified Code(s): D64.9 - Anemia, unspecified - Subjective Interval history: No acute events. Pain is controlled when leg is not moving much. Went down for MRI of RLE to rule out osteomyelitis. MRI had to be redone because of metal in patient's knee. 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 - Constitutional Vitals: Temp Pulse Resp BP Pulse Ox 98.0 F 51 17 114/66 99 06/05/17 15:54 06/05/17 15:54 06/05/17 15:54 06/05/17 15:54 06/05/17 15:54 General appearance: Present: A&O X 3, pleasant, no acute distress, underweight, answers questions appropriately Exam: Chronic sacral wound with packing - Head Head exam: Present: atraumatic, normocephalic - Eye Eye exam: Present: PERRL, conjuntiva pink, sclera anicteric Pupils: Present: PERRL - Neck Neck exam general surgery: Present: supple, trachea midline. Absent: lymphadenopathy - Respiratory Respiratory exam: Present: CTAB. Absent: accessory muscle use, rales, rhonchi, wheezes - Cardiovascular Cardiovascular exam: Present: RRR, +S1, +S2. Absent: diastolic murmur, gallop, rubs, systolic murmur - GI/Abdominal GI/Abdominal exam: Present: normal bowel sounds, soft, no peritoneal signs. Absent: distended, tenderness - Extremities Exam Extremities exam: Present: pedal edema, warm, radial pulses palpable and symmetrical. Absent: calf tenderness, cyanotic Additional comments: Whole right lower extremity is swollen compared to the left side as well as pinkish red up to knee. Good pulse. - Neurological Exam Neurological exam: Present: CN II-XII intact, oriented X3, no focal deficits. Absent: pronater drift, facial droop, speech deficit - Skin Skin exam: Present: dry, intact Internal Medicine: Result - Labs CBC & Chem 7: 06/05/17 04:56 06/05/17 11:50 Labs: Short CBC 06/05/17 Range/Units 04:56 WBC 7.7 (4.3-11.1) K/mcL Hgb 7.7 L (12.9-16.9) g/dL Hct 24.9 L (37.5-50.1) % Plt Count 155 (140-400) K/mcL Neutrophils # 7.0 (1.6-8.9) K/mcL BMP 06/05/17 11:50 Sodium 139 Potassium 4.8 H Chloride 116 H Carbon Dioxide 15 L BUN 24 Creatinine 2.43 H Glucose 183 H Calcium 7.9 L - Impressions Impressions Ankle MRI 06/05/17 11:03 IMPRESSION: Diffuse soft tissue edema suggesting cellulitis. No evidence of abscess. No specific evidence of osteomyelitis. D/ / 06/05/2017 17:49:53 Gus Dimas MD / [facility] Interpreting Provider: Gus Dimas MD Foot MRI 06/05/17 11:03 IMPRESSION: Diffuse soft tissue edema of the foot suggesting cellulitis. No evidence of abscess. No specific evidence of osteomyelitis. D/ / 06/05/2017 17:39:35 Gus Dimas MD / [facility] Interpreting Provider: Gus Dimas MD Lower Extremity MRI 06/05/17 11:06 IMPRESSION: Extends subcutaneous edema of the right lower leg without definite evidence of abscess. This is nonspecific but may represent cellulitis. No evidence of osteomyelitis. D/ / Gus Dimas MD / Gus Dimas MD Interpreting Provider: Gus Dimas MD - VTE Documentation of Mechanical Device: Graduated compression elastic hosiery Consult Discharge Plan - Plan Referrals: Eugene Rodriges MD [Primary Care Provider] - (Please call upon discharge for an appt. )
[2017-06-05] MEDS: *HR* FentaNYL PATCH 50 MCG PATCH TD SCH (18:09)
[2017-06-05] MEDS: Vancomycin 1,000 MG in D5% in Water 250 ML IVPB SCH (18:09)
[2017-06-05] MEDS: OLANZapine 5 MG TAB.RAPDIS PO SCH (21:43)
[2017-06-06] MEDS: *HR* OxyCODONE Immed Rel 15 MG TABLET PO PRN ×3 (04:00→21:04)
[2017-06-06 06:02] LABS: Basophils % 0.1 %; Hematocrit 25.1 % (37.5-50.1); Hemoglobin 7.8 g/dL (12.9-16.9); Immature Granulocytes % 2.5 % (0-4); Lymphocytes # 0.9 K/mcL (0.6-4.6); Lymphocytes % 6.5 %; Mean Corpuscular HGB Conc 31.1 g/dL (31.6-35.5); Mean Corpuscular Volume 93.3 fL (83.0-100.0); Mean Platelet Volume 10.3 fL (9.4-12.4); Monocytes # 0.2 K/mcL (0.0-1.3); Monocytes % 1.6 %; Platelet Count 192 K/mcL (140-400); Red Blood Count 2.69 M/mcL (4.19-5.50); Red Cell Distribution Width 17.8 % (11.5-14.5); Segmented Neutrophils % 89.3 %
[2017-06-06 06:05] LABS: Neutrophils # 12.1 K/mcL (1.6-8.9)
[2017-06-06 06:17] LABS: Calcium 8.2 mg/dL (8.6-10.8)
[2017-06-06 06:31] LABS: Potassium 5.9 mEq/L (3.5-4.5)
[2017-06-06 08:29] LABS: Calcium 8.3 mg/dL (8.6-10.8); Potassium 5.8 mEq/L (3.5-4.5)
[2017-06-06] MEDS: Magnesium Oxide 400 MG TABLET PO SCH ×2 (09:35→21:03)
[2017-06-06] MEDS: 0.9 % Sodium Chloride 1,000 ML IVC SCH ×3 (09:35→17:54)
[2017-06-06] MEDS: *HR* OxyCODONE ER (12 HR) 40 MG TABLET PO SCH ×2 (09:35→21:04)
[2017-06-06] MEDS: TIPIRACIL HCL PO SCH ×2 (09:36→21:06)
[2017-06-06] MEDS: TRIFLURIDINE PO SCH ×2 (09:36→21:06)
--- NOTE | 2017-06-06 11:23 | Oncology Inp Consult Note ---
Date of Encounter: 06/06/17 Time of Encounter: 12:00 Assessment and Plan (1) Rectal cancer metastasized to pelvis Status: Chronic Assessment and plan: Rectal cancer recurrence/progressive-s/p multiple therapies recently modified FOLFOX. Not tolerating due to nausea, renal dysfunction--dose adjustments made and progressed with CEA and PET imaging d/w him. Lonsurf PO to be started Renal insufficiency--s/p nephrostomy tubes changed. IV hydration. Avoid nephrotoxic/monitor levels of abx. Improving On IV abx for cellulitis of lower ext. DVT neg. MRI foot/ imaging reviewed Pain control-On PO home meds/fentanlywas incresaed. He is used to taking 2 oxycodone short acting at a time/ -Coccyx fistula-more destruction--inflammation/infection. Additional imaging reviewed Patient has been hospitalized with repeated episodes of infection, stent changed He had not opted for palliative care. Plan as above reviewed with him - Data of Consult Requesting Physician: Caitlin Stewart MD Primary Care Provider: Eugene Mccray - Consult Narrative Reason for consult: rectal cancer History of present illness: Mr. Tabor is a 52 year old male with rectal cancer initially diagnosed in 2006 , s/p neoadjuvant chemotherapy and radiation with 5-FU, followed [facility] followed by additional therapy with FOLFOX. Ct in February 23, 2013 showed moderate presacral soft tissue density which was approximately 3 cm. He developed recurrence in pre sacral area s/p bx on 04/17/2013 and chemo complicated by skin reaction and severe nausea, bx sowed KRAS wild type and so panitumumab was added. He had severe skin toxicity from 5-FU and transitioned to irinotecan plus panitumumab. He had adjuvant radiation to a small field in his pelvis along the bone with xeloda but CEA would bryan on his radiation. He continued with Panitumumab on 11/10/2013. This was complicated by severe diarrhea, fatigue, and a break from his radiation for a week. He developed bilateral ureteral obstruction and renal failure. s/p bilateral percutaneous stents placed and treated for urosepsis. He was taken to the operating room for lysis of adhesions and stenting of his ureters in July 2014. He has developed a large stage IV sacral decubitus ulcer. 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 He had a PET imaging with surgery in [place], [place] S/P IR procedure for IRINA drain (urine)-coil placement He was continued on cetuximab wkly (until 02/21/17). Patient had a rising CEA which was 60 then in 170 and then increased to 350. Treatment plan being changed to FOLFOX---C1 03/08/17. Ct CAP--min incr---stable lung nodule, mild prominant groin adenopathy, pelvic mass similar. Sacral lesion/coccyx destruction-fistula extending to rt of coccyx. Patient here to receive modified dose decreased FOLFOX--Cr elevated from baseline of 1.6-1.9 to 2.7 2.8, cr --s/p tube change. Has some bleed from rt nephrostomy tube. PET imaging showed--06/11 mild increase in lung nodule, large pelvic soft tissue mass with fluid collection and extending posteriorly to skin/sarum coccyx erosions. Due to worsening renal function and progressive disease with rising CEA treatment with FOLFOx d/mikael and planned lonsurf Patient had not started Rx awaiting insurance approval He had left lower extremity swelling and pain related to his sacral/pelvic mass. Patient presented with erythema and worsened pain and was recommended to go to the hospital. He had undergone a Doppler study which is negative for DVT. He is also had MRI of the lower extremity which shows soft tissue edema/without cysts. Due to clinical concern of cellulitis patient is being treated with antibiotics. Past Med Surg Social Fam HX - Past Medical History Medical history: arthritis, cancer, GERD, hyperlipidemia, hypertension, malignancy, osteoporosis, renal disease Psychiatric history: no psych history - Past Surgical History Surgical History: cancer surgery, colectomy, colostomy, prostatectomy, other - Social History Smoking Status: Never smoker Smokeless Tobacco Status: No Alcohol use: none Drug use: none - Family History Son Living Status: Still Living Hx Family Cancer: Yes (mother had breast cancer) Medications and Allergies OLANZapine [Zyprexa Zydis] 5 mg PO HS #30 tab.rapdis 08/16/16 [Rx] Prochlorperazine Maleate [Compazine] 10 mg PO Q8HR PRN #90 tablet 01/16/17 [Rx] Magnesium Oxide 500 mg PO BID #20 capsule 02/08/17 [Rx] Potassium Chloride 20 meq PO DAILY #2 tab.er.prt 02/08/17 [Rx] Dexamethasone [Decadron] 4 mg PO BID #3 tab 03/25/17 [Rx] Amoxicillin/Clavulanate [Augmentin] 875 mg PO BIDWM #28 tablet 04/10/17 [Rx] Doxycycline 100 mg PO BID #60 capsule 05/16/17 [Rx] Oxycodone HCl [Oxycontin] 80 mg PO Q12H #120 tab.er.12h 05/23/17 [Rx] Fentanyl [Duragesic] 50 mcg TD Q72H #10 patch.td72 05/31/17 [Rx] Sulfamethoxazole/Trimeth DS [Bactrim DS] 1 each PO BID #10 tablet 05/31/17 [Rx] Trifluridine/Tipiracil HCl [Lonsurf 20 mg-8.19 mg Tablet] 2 each PO BID #56 tablet 05/31/17 [Rx] Ondansetron ODT [Zofran ODT] 4 - 8 mg PO Q6H 06/04/17 [History] Oxycodone HCl [Roxicodone 30 MG Immed Release] 30 - 60 mg PO Q6HR PRN 06/04/17 [ History] 3 Allergy/AdvReac Type Severity Reaction Status Date / Time meperidine [From Demerol] Allergy Vomiting Verified 06/04/17 15:17 nalbuphine [From Nubain] Allergy See Verified 06/04/17 15:17 Comments Review of systems: pain meds helping, dilaudid prior to scan Oncology - Exam - Constitutional Vitals: Temp Pulse Resp BP Pulse Ox 97.6 F 41 17 127/74 99 06/06/17 06:47 06/06/17 06:47 06/06/17 06:47 06/06/17 06:47 06/06/17 09:30 General appearance: no acute distress, thin - Head Head exam: Present: atraumatic - Eye Eye exam: Present: sclera anicteric - Neck Neck exam: Present: full ROM - Respiratory Respiratory exam: Present: CTAB - Cardiovascular Cardiovascular exam: Present: +S1, +S2 - GI/Abdominal GI/Abdominal exam: Present: normal bowel sounds, soft - Extremities Exam Extremities exam: Present: normal inspection, pedal edema Additional comments: erythema improved - Neurological Exam Neurological exam: Present: alert, oriented X3 - Psychiatric Psychiatric exam: Present: normal mood Oncology - Results Labs: Short CBC 06/06/17 Range/Units 05:34 WBC 13.6 H D (4.3-11.1) K/mcL Hgb 7.8 L (12.9-16.9) g/dL Hct 25.1 L (37.5-50.1) % Plt Count 192 (140-400) K/mcL Neutrophils # 12.1 H (1.6-8.9) K/mcL BMP 06/05/17 06/06/17 06/06/17 11:50 05:34 08:10 Sodium 139 138 140 Potassium 4.8 H 5.9 H D 5.8 H Chloride 116 H 116 H 117 H Carbon Dioxide 15 L 16 L 17 L BUN 24 29 H 29 H Creatinine 2.43 H 2.27 H 2.29 H Glucose 183 H 128 H 117 H Calcium 7.9 L 8.2 L 8.3 L MRI lumbar spine, rt foot reviewed Consult Discharge Plan - Plan Referrals: Eugene Rodriges MD [Primary Care Provider] - (Please call upon discharge for an appt. )
[2017-06-06 12:33] LABS: Calcium 8.2 mg/dL (8.6-10.8)
[2017-06-06 12:40] LABS: Potassium 5.2 mEq/L (3.5-4.5)
[2017-06-06] MEDS: Piperacillin/Tazobactam 3.375 GM in D5% in Water (Mini-Bag+) 100 ML IVPB SCH ×2 (15:15→23:05)
[2017-06-06] MEDS: Vancomycin 1,000 MG in D5% in Water 250 ML IVPB SCH ×2 (17:54→18:50)
--- NOTE | 2017-06-06 18:31 | Internal Med Progress Note ---
Date of Encounter: 06/06/17 Time of Encounter: 15:30 - Assessment and plan (1) Cellulitis of right lower extremity Current Visit: Yes Status: Acute Assessment and plan: Continue Vanc/Zosyn renally dosed. Elevate leg to improve edema. (2) ARAM (acute kidney injury) Current Visit: No Status: Acute Assessment and plan: Improving. Continue to renally dose medication and IVF. (3) Hypertension Current Visit: Yes Status: Acute Qualifiers: Hypertension type: unspecified secondary hypertension Qualified Code(s): I15.9 - Secondary hypertension, unspecified; I15 - Secondary hypertension (4) Anemia Current Visit: Yes Status: Chronic Qualifiers: Anemia type: unspecified type Qualified Code(s): D64.9 - Anemia, unspecified (5) Metastatic adenocarcinoma to colorectal region Current Visit: Yes Status: Chronic Assessment and plan: Oncology consulted. (6) Pressure ulcer of coccygeal region, stage 4 Current Visit: Yes Status: Chronic (7) Anemia Current Visit: No Status: Acute Qualifiers: Anemia type: unspecified type Qualified Code(s): D64.9 - Anemia, unspecified (8) Bradycardia Current Visit: Yes Status: Chronic Assessment and plan: Asymptomatic, chronic. - Subjective Interval history: No acute events. Pain worsening but edema improving. - Constitutional Vitals: Temp Pulse Resp BP Pulse Ox 98.4 F 60 17 121/78 100 06/06/17 15:11 06/06/17 15:11 06/06/17 15:11 06/06/17 15:11 06/06/17 15:11 General appearance: Present: A&O X 3, pleasant, no acute distress, underweight, answers questions appropriately Exam: Gen: NAD CVS: bradycardic, no mrg Lungs: CTAB Ext: RLE with erythema significantly improved. Edema is 2+ tender to touch and same from yesterday. Internal Medicine: Result - Labs CBC & Chem 7: 06/06/17 05:34 06/06/17 11:44 Labs: Short CBC 06/06/17 Range/Units 05:34 WBC 13.6 H D (4.3-11.1) K/mcL Hgb 7.8 L (12.9-16.9) g/dL Hct 25.1 L (37.5-50.1) % Plt Count 192 (140-400) K/mcL Neutrophils # 12.1 H (1.6-8.9) K/mcL BMP 06/06/17 06/06/17 06/06/17 05:34 08:10 11:44 Sodium 138 140 137 Potassium 5.9 H D 5.8 H 5.2 H Chloride 116 H 117 H 114 H Carbon Dioxide 16 L 17 L 15 L BUN 29 H 29 H 30 H Creatinine 2.27 H 2.29 H 2.31 H Glucose 128 H 117 H 146 H Calcium 8.2 L 8.3 L 8.2 L - Impressions Impressions Tibia/Fibula X-Ray 06/05/17 00:00 IMPRESSION: 3 mm metallic density foreign body anterior to the medial femoral condyle. D/ / Cameron Morales MD / Cameron Morales MD Interpreting Provider: Cameron Morales MD Ankle MRI 06/05/17 11:03 IMPRESSION: Diffuse soft tissue edema suggesting cellulitis. No evidence of abscess. No specific evidence of osteomyelitis. D/ / 06/05/2017 17:49:53 Gus Dimas MD / [facility] Interpreting Provider: Gus Dimas MD Foot MRI 06/05/17 11:03 IMPRESSION: Diffuse soft tissue edema of the foot suggesting cellulitis. No evidence of abscess. No specific evidence of osteomyelitis. D/ / 06/05/2017 17:39:35 Gus Dimas MD / [facility] Interpreting Provider: Gus Dimas MD Lower Extremity MRI 06/05/17 11:06 IMPRESSION: Extensive subcutaneous edema of the right lower leg without definite evidence of abscess. This is nonspecific but may represent cellulitis. No evidence of osteomyelitis. D/ / 06/05/2017 18:00:43 Gus Dimas MD / [facility] Interpreting Provider: Gus Dimas MD - VTE Documentation of Mechanical Device: Graduated compression elastic hosiery Consult Discharge Plan - Plan Referrals: Eugene Rodriges MD [Primary Care Provider] - (Please call upon discharge for an appt. )
[2017-06-06] MEDS ORDERED: *HR* HYDROmorphone (PF) 1 MG/ML SYRINGE IVP ONE (18:48)
[2017-06-06] MEDS: OLANZapine 5 MG TAB.RAPDIS PO SCH (21:03)
[2017-06-06] MEDS: *HR* HYDROmorphone 2 MG/ML SYRINGE IVP PRN (23:05)
[2017-06-07] MEDS: 0.9 % Sodium Chloride 1,000 ML IVC SCH ×3 (02:48→15:47)
[2017-06-07] MEDS: *HR* HYDROmorphone 2 MG/ML SYRINGE IVP PRN ×6 (02:52→22:09)
[2017-06-07 03:23] LABS: Basophils % 0.1 %; Hematocrit 24.2 % (37.5-50.1); Hemoglobin 7.5 g/dL (12.9-16.9); Immature Granulocytes % 2.2 % (0-4); Lymphocytes # 0.7 K/mcL (0.6-4.6); Lymphocytes % 5.5 %; Mean Corpuscular Hemoglobin 29.2 pg (28.0-33.3); Mean Corpuscular Volume 94.2 fL (83.0-100.0); Mean Platelet Volume 10.6 fL (9.4-12.4); Monocytes # 0.2 K/mcL (0.0-1.3); Monocytes % 1.3 %; Neutrophils # 11.4 K/mcL (1.6-8.9); Platelet Count 182 K/mcL (140-400); Red Blood Count 2.57 M/mcL (4.19-5.50); Red Cell Distribution Width 17.8 % (11.5-14.5); Segmented Neutrophils % 90.9 %
[2017-06-07 03:35] LABS: Calcium 7.6 mg/dL (8.6-10.8); Potassium 5.4 mEq/L (3.5-4.5)
[2017-06-07] MEDS: Magnesium Oxide 400 MG TABLET PO SCH ×2 (08:51→20:23)
[2017-06-07] MEDS: Piperacillin/Tazobactam 3.375 GM in D5% in Water (Mini-Bag+) 100 ML IVPB SCH ×2 (08:51→15:46)
[2017-06-07] MEDS: *HR* OxyCODONE ER (12 HR) 40 MG TABLET PO SCH ×2 (08:51→20:23)
[2017-06-07] MEDS: TIPIRACIL HCL PO SCH ×2 (08:52→20:25)
[2017-06-07] MEDS: TRIFLURIDINE PO SCH ×2 (08:52→20:25)
--- NOTE | 2017-06-07 15:57 | Internal Med Progress Note ---
Date of Encounter: 06/07/17 Time of Encounter: 13:00 - Assessment and plan (1) Hyperkalemia Current Visit: Yes Status: Acute Assessment and plan: Need to monitor closely in the setting of renal disease. There has been gradual increase in potassium, currently 5.4. Goal to keep under 5.5. Will start low dose kayexalate as this does take some time to decrease serum potassium levels. (2) ARAM (acute kidney injury) Current Visit: No Status: Acute Assessment and plan: Stable. (3) Cellulitis of right lower extremity Current Visit: Yes Status: Acute Assessment and plan: Nearly resolved. Continue Vanc Zosyn. (4) Hypertension Current Visit: Yes Status: Acute Assessment and plan: Stable Qualifiers: Hypertension type: unspecified secondary hypertension Qualified Code(s): I15.9 - Secondary hypertension, unspecified; I15 - Secondary hypertension (5) Anemia Current Visit: Yes Status: Chronic Assessment and plan: Stable at 7.5 but if <7.0 will transfuse. Qualifiers: Anemia type: unspecified type Qualified Code(s): D64.9 - Anemia, unspecified (6) Metastatic adenocarcinoma to colorectal region Current Visit: Yes Status: Chronic (7) Pressure ulcer of coccygeal region, stage 4 Current Visit: Yes Status: Chronic (8) Bradycardia Current Visit: Yes Status: Chronic Assessment and plan: Asymptomatic, chronic. - Subjective Interval history: Leg pain improved but required IV dilaudid. Erythema resolved. - Constitutional Vitals: Temp Pulse Resp BP Pulse Ox 98.5 F 58 12 134/74 97 06/07/17 11:00 06/07/17 11:00 06/07/17 11:00 06/07/17 11:00 06/07/17 11:00 General appearance: Present: A&O X 3, pleasant, no acute distress, underweight, answers questions appropriately Exam: Gen: NAD, AAOx3, pleasant. CVS: RRR Lungs: CTAB Ext: right lower extremity erythema nearly resolved compared to yesterday's exam. Tender pitting edema 2+. Internal Medicine: Result - Labs CBC & Chem 7: 06/07/17 03:10 06/07/17 03:10 Labs: Short CBC 06/07/17 Range/Units 03:10 WBC 12.5 H (4.3-11.1) K/mcL Hgb 7.5 L (12.9-16.9) g/dL Hct 24.2 L (37.5-50.1) % Plt Count 182 (140-400) K/mcL Neutrophils # 11.4 H (1.6-8.9) K/mcL BMP 06/07/17 03:10 Sodium 138 Potassium 5.4 H Chloride 117 H Carbon Dioxide 17 L BUN 30 H Creatinine 2.21 H Glucose 151 H Calcium 7.6 L - VTE Documentation of Mechanical Device: Graduated compression elastic hosiery Consult Discharge Plan - Plan Referrals: Eugene Rodriges MD [Primary Care Provider] - 06/11/17 8:00 am (Please call upon discharge for an appt. )
[2017-06-07] MEDS: Vancomycin 1,000 MG in D5% in Water 250 ML IVPB SCH (20:21)
[2017-06-07] MEDS: OLANZapine 5 MG TAB.RAPDIS PO SCH (20:23)
[2017-06-08] MEDS: Piperacillin/Tazobactam 3.375 GM in D5% in Water (Mini-Bag+) 100 ML IVPB SCH ×4 (00:40→23:08)
[2017-06-08] MEDS: *HR* HYDROmorphone (PF) 1 MG/ML SYRINGE IVP PRN ×4 (00:41→23:08)
[2017-06-08] MEDS: 0.9 % Sodium Chloride 1,000 ML IVC SCH ×2 (00:47→08:42)
[2017-06-08] MEDS: *HR* HYDROmorphone 2 MG/ML SYRINGE IVP PRN ×5 (01:47→20:33)
[2017-06-08 04:15] LABS: Basophils % 0.1 %; Hematocrit 24.1 % (37.5-50.1); Hemoglobin 7.5 g/dL (12.9-16.9); Lymphocytes # 0.8 K/mcL (0.6-4.6); Lymphocytes % 7.7 %; Mean Corpuscular HGB Conc 31.1 g/dL (31.6-35.5); Mean Corpuscular Hemoglobin 29.1 pg (28.0-33.3); Mean Corpuscular Volume 93.4 fL (83.0-100.0); Mean Platelet Volume 10.2 fL (9.4-12.4); Monocytes # 0.2 K/mcL (0.0-1.3); Monocytes % 1.9 %; Neutrophils # 8.4 K/mcL (1.6-8.9); Platelet Count 189 K/mcL (140-400); Red Blood Count 2.58 M/mcL (4.19-5.50); Red Cell Distribution Width 17.2 % (11.5-14.5); Segmented Neutrophils % 86.3 %
[2017-06-08 04:28] LABS: Calcium 7.3 mg/dL (8.6-10.8); Potassium 4.8 mEq/L (3.5-4.5)
[2017-06-08] MEDS ORDERED: *HR* Labetalol 20 MG/4 ML SYRINGE IVP PRN (05:27)
[2017-06-08] MEDS: amLODIPine 5 MG TABLET PO SCH ×2 (05:40→08:41)
[2017-06-08] MEDS: *HR* OxyCODONE ER (12 HR) 40 MG TABLET PO SCH ×2 (08:18→20:33)
[2017-06-08] MEDS: Magnesium Oxide 400 MG TABLET PO SCH ×2 (08:20→20:33)
[2017-06-08] MEDS ORDERED: amLODIPine 5 MG TABLET PO SCH (09:00)
[2017-06-08] MEDS: TIPIRACIL HCL PO SCH ×2 (11:21→20:33)
[2017-06-08] MEDS: TRIFLURIDINE PO SCH ×2 (11:21→20:33)
[2017-06-08] MEDS: *HR* FentaNYL PATCH 50 MCG PATCH TD SCH (14:54)
[2017-06-08] MEDS: Vancomycin 1,000 MG in D5% in Water 250 ML IVPB SCH (20:33)
[2017-06-08] MEDS: OLANZapine 5 MG TAB.RAPDIS PO SCH (20:34)
--- NOTE | 2017-06-08 21:41 | Internal Med Progress Note ---
Date of Encounter: 06/08/17 Time of Encounter: 10:30 - Assessment and plan (1) ARAM (acute kidney injury) Current Visit: No Status: Acute Assessment and plan: Continues to improve, nearing baseline. If continues to do well, can be discharged in AM. (2) Hyperkalemia Current Visit: Yes Status: Acute (3) Cellulitis of right lower extremity Current Visit: Yes Status: Acute Assessment and plan: Resolved Continue Vanc Zosyn. (4) Hypertension Current Visit: Yes Status: Acute Assessment and plan: Stable Qualifiers: Hypertension type: unspecified secondary hypertension Qualified Code(s): I15.9 - Secondary hypertension, unspecified; I15 - Secondary hypertension (5) Anemia Current Visit: Yes Status: Chronic Qualifiers: Anemia type: unspecified type Qualified Code(s): D64.9 - Anemia, unspecified (6) Metastatic adenocarcinoma to colorectal region Current Visit: Yes Status: Chronic (7) Pressure ulcer of coccygeal region, stage 4 Current Visit: Yes Status: Chronic (8) Bradycardia Current Visit: Yes Status: Chronic - Subjective Interval history: Doing well, no complaints. - Constitutional Vitals: Temp Pulse Resp BP Pulse Ox 98 F 53 16 147/84 100 06/08/17 19:10 06/08/17 19:10 06/08/17 19:10 06/08/17 19:10 06/08/17 19:10 General appearance: Present: A&O X 3, pleasant, no acute distress, underweight, answers questions appropriately Exam: Gen: NAD, AAOx3 CVS: RRR Lungs: CTAB Ext: right leg with no more erythema. Edema slightly improved. Internal Medicine: Result - Labs CBC & Chem 7: 06/08/17 04:00 06/08/17 04:00 Labs: Short CBC 06/08/17 Range/Units 04:00 WBC 9.7 (4.3-11.1) K/mcL Hgb 7.5 L (12.9-16.9) g/dL Hct 24.1 L (37.5-50.1) % Plt Count 189 (140-400) K/mcL Neutrophils # 8.4 (1.6-8.9) K/mcL BMP 06/08/17 04:00 Sodium 138 Potassium 4.8 H Chloride 116 H Carbon Dioxide 18 L BUN 28 H Creatinine 1.93 H Glucose 131 H Calcium 7.3 L - VTE Documentation of Mechanical Device: Graduated compression elastic hosiery Consult Discharge Plan - Plan Referrals: Eugene Rodriges MD [Primary Care Provider] - 06/11/17 8:00 am (Please call upon discharge for an appt. )
[2017-06-09] MEDS: *HR* HYDROmorphone 2 MG/ML SYRINGE IVP PRN ×3 (01:48→11:51)
[2017-06-09] MEDS: *HR* HYDROmorphone (PF) 1 MG/ML SYRINGE IVP PRN (04:20)
[2017-06-09 06:35] LABS: Calcium 7.3 mg/dL (8.6-10.8); Potassium 4.4 mEq/L (3.5-4.5)
[2017-06-09 06:38] LABS: Basophils % 0.1 %; Hemoglobin 8.4 g/dL (12.9-16.9); Immature Granulocytes % 3.6 % (0-4); Lymphocytes # 0.7 K/mcL (0.6-4.6); Lymphocytes % 7.2 %; Mean Corpuscular HGB Conc 32.3 g/dL (31.6-35.5); Mean Corpuscular Hemoglobin 29.5 pg (28.0-33.3); Mean Corpuscular Volume 91.2 fL (83.0-100.0); Mean Platelet Volume 10.4 fL (9.4-12.4); Monocytes # 0.2 K/mcL (0.0-1.3); Monocytes % 1.9 %; Neutrophils # 8.3 K/mcL (1.6-8.9); Platelet Count 199 K/mcL (140-400); Red Blood Count 2.85 M/mcL (4.19-5.50); Red Cell Distribution Width 17.4 % (11.5-14.5); Segmented Neutrophils % 87.2 %
[2017-06-09 07:51] VITALS: BP 162/83
--- NOTE | 2017-06-09 08:24 | Discharge Summary ---
Date of Encounter: 06/09/17 Time of Encounter: 08:22 - Discharge Diagnosis (1) Cellulitis of right lower extremity Priority: Primary Status: Acute (2) ARAM (acute kidney injury) Priority: Secondary Status: Resolved (3) Hyperkalemia Priority: Secondary Status: Resolved (4) Hypertension Priority: Secondary Status: Chronic Qualifiers: Hypertension type: unspecified secondary hypertension Qualified Code(s): I15.9 - Secondary hypertension, unspecified; I15 - Secondary hypertension (5) Anemia Priority: Secondary Status: Chronic Qualifiers: Anemia type: unspecified type Qualified Code(s): D64.9 - Anemia, unspecified (6) Metastatic adenocarcinoma to colorectal region Priority: Secondary Status: Chronic (7) Pressure ulcer of coccygeal region, stage 4 Priority: Secondary Status: Chronic (8) Bradycardia Priority: Secondary Status: Chronic - Discharge Medications Prescriptions: Cephalexin [Keflex] 500 mg PO QID 14 Days #56 capsule Sulfamethoxazole/Trimeth DS [Bactrim Ds] 1 each PO BID #28 tablet Home Medications: OLANZapine [Zyprexa Zydis] 5 mg PO HS #30 tab.rapdis 08/16/16 [Rx] Prochlorperazine Maleate [Compazine] 10 mg PO Q8HR PRN #90 tablet 01/16/17 [Rx] Magnesium Oxide 500 mg PO BID #20 capsule 02/08/17 [Rx] Potassium Chloride 20 meq PO DAILY #2 tab.er.prt 02/08/17 [Rx] Dexamethasone [Decadron] 4 mg PO BID #3 tab 03/25/17 [Rx] Oxycodone HCl [Oxycontin] 80 mg PO Q12H #120 tab.er.12h 05/23/17 [Rx] Fentanyl [Duragesic] 50 mcg TD Q72H #10 patch.td72 05/31/17 [Rx] Trifluridine/Tipiracil HCl [Lonsurf 20 mg-8.19 mg Tablet] 2 each PO BID #56 tablet 05/31/17 [Rx] Ondansetron ODT [Zofran ODT] 4 - 8 mg PO Q6H 06/04/17 [History] Oxycodone HCl [Roxicodone 30 MG Immed Release] 30 - 60 mg PO Q6HR PRN 06/04/17 [ History] Cephalexin [Keflex] 500 mg PO QID 14 Days #56 capsule 06/09/17 [Rx] Sulfamethoxazole/Trimeth DS [Bactrim Ds] 1 each PO BID #28 tablet 06/09/17 [Rx] Allergies/Adverse Reactions: 3 Allergy/AdvReac Type Severity Reaction Status Date / Time meperidine [From Demerol] Allergy Vomiting Verified 06/04/17 15:17 nalbuphine [From Nubain] Allergy See Verified 06/04/17 15:17 Comments Date of admission: 06/04/17 23:09 Primary care physician: Eugene Mccray Consults: 06/05/17 04:25 Consult to Nutrition [CONS] Routine Comment: Consulting Provider: NUTRITION Reason for Dietary Consult: MST Score 06/05/17 07:34 Consult to Wound Care [CONS] Routine Reason for Consult: stage 4 on coccyx Call Completed: No 06/07/17 10:30 Consult to Physical Therapy [CONS] Routine Comment: Evaluate, develop and implement POC Reason for Consult: Eval for weakness Discharging clinician: Caitlin Stewart - Patient Status Disposition: Home, Self-Care Condition: Good Functional capacity at discharge: independent ambulation Overall status at discharge: patient is progressing back to baseline - Discharge Instructions Instructions: Cellulitis (DC) Follow Up With: Eugene Rodriges MD [Primary Care Provider] - 06/11/17 8:00 am (Please call upon discharge for an appt. ) - Diet and Activity Activity: ambulate only with your walker, increase activity as tolerated Diet: advance to your usual diet Interval History: Mr. Tabor is a 52 year old male past medical history significant for metastatic rectal cancer status post partial colectomy, hypertension dyslipidemia and GERD and stage III chronic kidney disease. Patient presented for right lower extremity erythema and edema. His primary care placed him on 2 antibiotics including doxycycline which he has been taken chronically. As he did not improve she decided to come to ER with a Doppler venous ultrasound did not show any blood clot or DVT. Hospital course: He was started on vancomycin and Zosyn for empiric therapy. 3 of the foot was done and showed mixed lytic and sclerotic changes. An MRI of the affected area showed no evidence of osteomyelitis. No contrast was administered because of patient's kidney function. The patient was noted to be bradycardic but it was asymptomatic and this appears to be his baseline. Blood cultures were negative. His creatinine was elevated at 2.43 but with fluid improved to 1.9. His cellulitis resolved. There was still some erythema and his foot but after patient was told to elevated his leg, the edema improved markedly. He received a total of days' worth of broad-spectrum antibiotics. Doxycycline was ineffective when he came in prior to admission and so this was not given. He was discharged home on Bactrim and Keflex complete 14 days. - Time Spent with Patient Total time spent providing and/or coordinating discharge services: - Constitutional Vitals: Temp Pulse Resp BP Pulse Ox 97.7 F 50 18 162/83 100 06/09/17 07:46 06/09/17 07:46 06/09/17 07:46 06/09/17 07:46 06/09/17 07:46 General appearance: Present: A&O X 3, pleasant, no acute distress, underweight, answers questions appropriately Exam: Chronic sacral wound with packing - Head Head exam: Present: atraumatic, normocephalic - Eye Eye exam: Present: PERRL, conjuntiva pink, sclera anicteric Pupils: Present: PERRL - Neck Neck exam general surgery: Present: supple, trachea midline. Absent: lymphadenopathy - Respiratory Respiratory exam: Present: CTAB. Absent: accessory muscle use, rales, rhonchi, wheezes - Cardiovascular Cardiovascular exam: Present: RRR, +S1, +S2. Absent: diastolic murmur, gallop, rubs, systolic murmur - GI/Abdominal GI/Abdominal exam: Present: normal bowel sounds, soft, no peritoneal signs. Absent: distended, tenderness - Extremities Exam Extremities exam: Present: pedal edema is still present but cellulitic changes resolved. Absent: calf tenderness, cyanotic - Neurological Exam Neurological exam: Present: CN II-XII intact, oriented X3, no focal deficits. Absent: pronater drift, facial droop, speech deficit - Skin Skin exam: Present: dry, intact - VTE Documentation of Mechanical Device: Graduated compression elastic hosiery
[2017-06-09] MEDS: Piperacillin/Tazobactam 3.375 GM in D5% in Water (Mini-Bag+) 100 ML IVPB SCH (09:23)
[2017-06-09] MEDS: Magnesium Oxide 400 MG TABLET PO SCH (09:24)
[2017-06-09] MEDS: *HR* OxyCODONE ER (12 HR) 40 MG TABLET PO SCH (09:24)
[2017-06-09] MEDS: amLODIPine 5 MG TABLET PO SCH (09:24)
[2017-06-09] MEDS: TIPIRACIL HCL PO SCH (09:24)
[2017-06-09] MEDS: TRIFLURIDINE PO SCH (09:24)
[2017-06-09] MEDS ORDERED: Aminoglycoside Consult 1 EACH MC ONE (13:34)
== END 2017-06-09 13:35 | disposition home or self-care (01) | DRG 602 ==
LOC: EMEROO 15:08 → 2ANU 15:08 → EMEROO 19:15 → 2ANU 19:15 → EMEROO 19:20 → 2ANU 19:20 → SUATTDRO 23:09
PROVIDERS: ADMIT Internal Medicine; ATTEND Student in an Organized Health Care Education/Training Program

== ENCOUNTER 2017-08-25 19:52 | Inpatient (IN) ==
[2017-08-25 20:38] LABS: Bilirubin,Urine Negative (Negative); Blood,Urine Moderate (Negative); Clarity,Urine Turbid (Clear); Color,Urine Yellow (Yellow); Glucose,Urine (UA) Normal (Normal); Ketones,Urine Negative (Negative); Leukocyte Esterase,Urine Large (Negative); Nitrite,Urine Negative (Negative); Protein,Urine 30 mg/dL (Neg-Trace); Specific Gravity,Urine 1.022 (1.010-1.025); Urobilinogen,Urine Normal (Normal)
[2017-08-25 20:40] LABS: Bacteria,Urine Few per hpf (None-Few); Squamous Epithelial Cell,Urine Moderate per lpf (None-Few); WBC,Urine TNTC per hpf (0-3)
[2017-08-25 20:49] LABS: Hyaline Casts,Urine Few per lpf (None-Few)
[2017-08-25 20:50] LABS: RBC,Urine 15-30 per hpf (0-3); Yeast,Urine Many per hpf (None Seen)
[2017-08-25 20:59] LABS: Basophils % 0.3 %; Eosinophils # 0.1 K/mcL (0.0-0.6); Eosinophils % 1.6 %; Hematocrit 22.7 % (37.5-50.1); Immature Granulocytes % 0.7 % (0-4); Lymphocytes # 0.7 K/mcL (0.6-4.6); Lymphocytes % 11.9 %; Mean Corpuscular HGB Conc 30.4 g/dL (31.6-35.5); Mean Corpuscular Hemoglobin 30.1 pg (28.0-33.3); Mean Corpuscular Volume 99.1 fL (83.0-100.0); Mean Platelet Volume 9.1 fL (9.4-12.4); Monocytes # 0.2 K/mcL (0.0-1.3); Monocytes % 3.6 %; Platelet Count 192 K/mcL (140-400); Red Blood Count 2.29 M/mcL (4.19-5.50); Red Cell Distribution Width 17.1 % (11.5-14.5); Segmented Neutrophils % 81.9 %
--- NOTE | 2017-08-25 21:07 | Emergency Department Note ---
Disposition Clinical Impression: Malignancy, Scrotal edema, Kidney infection, Sacral decubitus ulcer, stage IV Disposition: Admitted As Inpatient Referrals: NONE,PCP [Primary Care Provider] - Forms: ED Satisfaction Letter, Work/School Release Time of Disposition: 22:50 Extremity Problem HPI - General Chief complaint: ED General Medical Stated complaint: Swelling, Cancer Time Seen by Provider: 08/25/17 20:08 Source: patient, family Limitations: no limitations Nursing Notes Reviewed: Yes Vital Signs Reviewed: Yes - History of Present Illness HPI Narrative: Mr. Tabor is a 52-year-old man with a history of rectal cancer, bilateral nephrostomy tubes, stage IV decubitus sacral ulcer and chronic kidney disease who presents to the ED with 3 day history of scrotal edema. He says that this has been going on for about 3 days, however is acutely worse in the past 24 hours. His cancer is managed by Dr. Barry, who when called to suggested the patient come to the ED. He says that his creatinine is edematous and painful. In association with this the patient is experiencing increased edema in his lower extremities bilaterally. He says that this is never happened before. He does not take any diuretics at home. He has not tried taking anything for this pain, nothing seems to make it better or worse. Further the patient reports that he has had increased discharge per sacral decubitus ulcer which was Stage IV to begin with. The patient denies fever, chills, sweats. He denies any other acute concerns. Per his oncologist the patient is on chronic prophylactic doxycycline. Pain Scale: 7 - Related Data Previous Rx's Medication Instructions Recorded OLANZapine [Zyprexa Zydis] 5 mg PO HS #30 tab.rapdis 08/16/16 Prochlorperazine Maleate 10 mg PO Q8HR PRN #90 tablet 01/16/17 [Compazine] Magnesium Oxide 500 mg PO BID #20 capsule 02/08/17 Potassium Chloride 20 meq PO DAILY #2 tab.er.prt 02/08/17 Dexamethasone [Decadron] 4 mg PO BID #3 tab 03/25/17 Oxycodone HCl [Oxycontin] 80 mg PO Q12H #120 tab.er.12h 05/23/17 Sulfamethoxazole/Trimeth DS 1 each PO BID #28 tablet 06/09/17 [Bactrim Ds] Trifluridine/Tipiracil HCl 2 each PO BID #40 tablet 08/01/17 [Lonsurf 20 mg-8.19 mg Tablet] Ondansetron ODT [Zofran ODT] 4 mg PO Q8H PRN #30 tab.rapdis 08/09/17 Oxycodone HCl [Roxicodone 30 MG 30 - 60 mg PO Q6HR PRN #180 tablet 08/09/17 Immed Release] Ciprofloxacin [Cipro] 500 mg PO BID #10 tablet 08/20/17 metroNIDAZOLE [Flagyl] 500 mg PO BID #20 tablet 08/20/17 metroNIDAZOLE [Flagyl] 500 mg PO BID #20 tablet 08/20/17 Allergies Allergy/AdvReac Type Severity Reaction Status Date / Time meperidine [From Demerol] Allergy Vomiting Verified 06/04/17 15:17 nalbuphine [From Nubain] Allergy See Verified 06/04/17 15:17 Comments Constitutional: Denies: fever, chills, weakness Eyes: Denies: vision change ENT ED: Denies: congestion, dysphagia Cardiovascular: Reports: edema. Denies: chest pain, palpitations, syncope Respiratory: Reports: dyspnea. Denies: cough, wheezes Gastrointestinal: Denies: abdominal pain, nausea, vomiting, melena, hematochezia Genitourinary: Denies: urgency, dysuria Musculoskeletal: Reports: back pain Integumentary: Reports: lesions (Decubitus ulcer) Neurological: Denies: weakness, numbness, paresthesias, confusion Psychiatric: Reports: depression. Denies: anxiety Endocrine: Reports: fatigue Hematological/Lymphatic: Denies: easy bleeding Past Medical History - Past Medical History Medical history: Reports: arthritis, cancer, GERD, hyperlipidemia, hypertension , malignancy, osteoporosis, renal disease Surgical history: Reports: cancer surgery, colectomy, colostomy, prostatectomy, other Psychiatric history: Reports: no psych history - Social History Smoking Status: Never smoker Smokeless Tobacco Status: No Alcohol use: Reports: none Drug use: Reports: none Physical Exam Gen.: Vitals noted. No acute distress. AAOx3 HEENT: oropharynx clear, Normocephalic, atraumatic Neck: Supple. No adenopathy. Cardiac: RRR, no murmur, +S1/S2, palpable thrill Pulmonary: CTA bilaterally, no wheezes, rales or rhonchi, equal chest expansion Abdomen: soft, nontender, BS noted, no guarding Back: 5 cm stage 4 sacral decubitus ulcer with purulent drainage. Bilateral nephrostomy tube with purulent secretions. : Substantial scrotal edema to the size of approximately a softball with substantial tenderness to palpation. I am unable to palpate the testes individually. Extremities: 1-2+ bilateral lower extremity edema Neuro: A&Ox3, moves all extremities, no focal deficits Psych: Appropriate mood and behavior - General Limitations: no limitations General appearance: alert, in no apparent distress Course Vital Signs Temperature 98.0 F 08/25/17 19:52 Pulse Rate 117 08/25/17 19:52 Respiratory Rate 18 08/25/17 19:52 Blood Pressure 107/62 08/25/17 19:52 O2 Sat by Pulse Oximetry 100 08/25/17 19:52 Temperature 98.0 F 08/25/17 19:52 Pulse Rate 117 08/25/17 19:52 Respiratory Rate 18 08/25/17 19:52 Blood Pressure 107/62 08/25/17 19:52 O2 Sat by Pulse Oximetry 100 08/25/17 19:52 Oxygen Delivery Oxygen Delivery Room Air Extremity Problem, Nontraumati - MDM Narrative Medical decision making narrative: I reviewed the patient's labs and imaging. The scrotum has significant edema that is concerning, I was unable to perform a physical exam on the testis themselves. The patient does demonstrate UTI based on urine collected from bilateral nephrostomy tubes. Additionally the patient did present with an acutely worsened anemia compared to previous. Patient additionally shows what looks to be a CKD with a creatinine of 2.13, however the patient has had similar creatinine levels over the past couple of months. Scrotal ultrasound demonstrated sided scrotal edema with right-sided hydrocele. On physical exam the patient does not appear to have any substantial differences, and in fact appears similar bilaterally. Spoke with the patient's oncologist Dr. Barry who suggested antibiotics for any suspected infection, as well as admission to the hospital with the hospitalist manage fluid. I started ceftriaxone but avoided vanc/levaquin due to the patient's renal status. I spoke with the hospitalist for admission who recommended that we start the patient on IV Lasix. I agree with this plan and start the patient on 20 mg IV Lasix. The patient has been admitted to the medicine team for management of bilateral kidney infection and severe scrotal edema. - Medical Records Medical records reviewed: Yes I reviewed the patient's medical records. - Lab Data Lab results reviewed: Yes I reviewed the patient's lab results. Result diagrams: 08/25/17 20:48 08/25/17 20:48 Lab Results 08/25/17 08/25/17 08/25/17 Range/Units 20:24 20:48 20:48 WBC 6.1 (4.3-11.1) K/mcL RBC 2.29 L (4.19-5.50) M/mcL Hgb 6.9 L (12.9-16.9) g/dL Hct 22.7 L (37.5-50.1) % MCV 99.1 (83.0-100.0) fL MCH 30.1 (28.0-33.3) pg MCHC 30.4 L (31.6-35.5) g/dL RDW 17.1 H (11.5-14.5) % Plt Count 192 (140-400) K/mcL MPV 9.1 L (9.4-12.4) fL Immature Gran % 0.7 (0-4) % Seg Neutrophils % 81.9 % Lymphocytes % 11.9 % Monocytes % 3.6 % Eosinophils % 1.6 % Basophils % 0.3 % Neutrophils # 5.0 (1.6-8.9) K/mcL Lymphocytes # 0.7 (0.6-4.6) K/mcL Monocytes # 0.2 (0.0-1.3) K/mcL Eosinophils # 0.1 (0.0-0.6) K/mcL Basophils # 0.0 (0.0-0.2) K/mcL Sodium 139 (136-145) mEq/L Potassium 3.8 (3.5-5.1) mEq/L Chloride 111 H (98-107) mEq/L Carbon Dioxide 23 (23-29) mEq/L BUN 32 H (6-20) mg/dL Creatinine 2.13 H (0.70-1.30) mg/dL Est GFR ( Amer) 39 L (> 60) Est GFR (Non-Af Amer) 33 L (> 60) BUN/Creatinine Ratio 15 (6-26) Glucose 115 H (70-105) mg/dL Calculated Osmolality 296 (280-300) Lactic Acid (0.5-2.2) mmol/L Calcium 8.1 L (8.6-10.3) mg/dL Total Bilirubin 0.2 L (0.3-1.0) mg/dL AST 13 (13-39) Units/L ALT 9 (7-52) Units/L Alkaline Phosphatase 54 (34-104) Units/L Troponin I (< 0.04) ng/mL B-Natriuretic Peptide (Less than 100) pg/mL Serum Total Protein 6.0 L (6.4-8.9) g/dL Albumin 2.9 L (3.5-5.7) g/dL Globulin 3.1 (2.4-3.5) g/dL Albumin/Globulin Ratio 0.9 L (1.1-2.2) Lipase (11-82) Units/L Urine Color Yellow (Yellow) Urine Clarity Turbid A (Clear) Urine pH 6.0 (5.0-8.0) pH Units Ur Specific [place] 1.022 (1.010-1.025) Urine Protein 30 H (Neg-Trace) mg/dL Urine Glucose (UA) Normal (Normal) mg/dL Urine Ketones Negative (Negative) mg/dL Urine Blood Moderate H (Negative) Urine Nitrite Negative (Negative) Urine Bilirubin Negative (Negative) Urine Urobilinogen Normal (Normal) mg/dL Ur Leukocyte Esterase Large H (Negative) Urine Microscopic RBC 15-30 H (0-3) per hpf Urine Microscopic WBC TNTC H (0-3) per hpf Ur Squamous Epith Cells Moderate H (None-Few) per lpf Urine Bacteria Few (None-Few) per hpf Hyaline Casts Few (None-Few) per lpf Urine Yeast Many H (None Seen) per hpf Ur Culture Indicated? YES A (NO) 08/25/17 08/25/17 08/25/17 Range/Units 20:48 20:48 20:48 WBC (4.3-11.1) K/mcL RBC (4.19-5.50) M/mcL Hgb (12.9-16.9) g/dL Hct (37.5-50.1) % MCV (83.0-100.0) fL MCH (28.0-33.3) pg MCHC (31.6-35.5) g/dL RDW (11.5-14.5) % Plt Count (140-400) K/mcL MPV (9.4-12.4) fL Immature Gran % (0-4) % Seg Neutrophils % % Lymphocytes % % Monocytes % % Eosinophils % % Basophils % % Neutrophils # (1.6-8.9) K/mcL Lymphocytes # (0.6-4.6) K/mcL Monocytes # (0.0-1.3) K/mcL Eosinophils # (0.0-0.6) K/mcL Basophils # (0.0-0.2) K/mcL Sodium (136-145) mEq/L Potassium (3.5-5.1) mEq/L Chloride (98-107) mEq/L Carbon Dioxide (23-29) mEq/L BUN (6-20) mg/dL Creatinine (0.70-1.30) mg/dL Est GFR ( Amer) (> 60) Est GFR (Non-Af Amer) (> 60) BUN/Creatinine Ratio (6-26) Glucose (70-105) mg/dL Calculated Osmolality (280-300) Lactic Acid 1.3 (0.5-2.2) mmol/L Calcium (8.6-10.3) mg/dL Total Bilirubin (0.3-1.0) mg/dL AST (13-39) Units/L ALT (7-52) Units/L Alkaline Phosphatase (34-104) Units/L Troponin I < 0.03 (< 0.04) ng/mL B-Natriuretic Peptide (Less than 100) pg/mL Serum Total Protein (6.4-8.9) g/dL Albumin (3.5-5.7) g/dL Globulin (2.4-3.5) g/dL Albumin/Globulin Ratio (1.1-2.2) Lipase 17 (11-82) Units/L Urine Color (Yellow) Urine Clarity (Clear) Urine pH (5.0-8.0) pH Units Ur Specific [place] (1.010-1.025) Urine Protein (Neg-Trace) mg/dL Urine Glucose (UA) (Normal) mg/dL Urine Ketones (Negative) mg/dL Urine Blood (Negative) Urine Nitrite (Negative) Urine Bilirubin (Negative) Urine Urobilinogen (Normal) mg/dL Ur Leukocyte Esterase (Negative) Urine Microscopic RBC (0-3) per hpf Urine Microscopic WBC (0-3) per hpf Ur Squamous Epith Cells (None-Few) per lpf Urine Bacteria (None-Few) per hpf Hyaline Casts (None-Few) per lpf Urine Yeast (None Seen) per hpf Ur Culture Indicated? (NO) 08/25/17 Range/Units 20:48 WBC (4.3-11.1) K/mcL RBC (4.19-5.50) M/mcL Hgb (12.9-16.9) g/dL Hct (37.5-50.1) % MCV (83.0-100.0) fL MCH (28.0-33.3) pg MCHC (31.6-35.5) g/dL RDW (11.5-14.5) % Plt Count (140-400) K/mcL MPV (9.4-12.4) fL Immature Gran % (0-4) % Seg Neutrophils % % Lymphocytes % % Monocytes % % Eosinophils % % Basophils % % Neutrophils # (1.6-8.9) K/mcL Lymphocytes # (0.6-4.6) K/mcL Monocytes # (0.0-1.3) K/mcL Eosinophils # (0.0-0.6) K/mcL Basophils # (0.0-0.2) K/mcL Sodium (136-145) mEq/L Potassium (3.5-5.1) mEq/L Chloride (98-107) mEq/L Carbon Dioxide (23-29) mEq/L BUN (6-20) mg/dL Creatinine (0.70-1.30) mg/dL Est GFR ( Amer) (> 60) Est GFR (Non-Af Amer) (> 60) BUN/Creatinine Ratio (6-26) Glucose (70-105) mg/dL Calculated Osmolality (280-300) Lactic Acid (0.5-2.2) mmol/L Calcium (8.6-10.3) mg/dL Total Bilirubin (0.3-1.0) mg/dL AST (13-39) Units/L ALT (7-52) Units/L Alkaline Phosphatase (34-104) Units/L Troponin I (< 0.04) ng/mL B-Natriuretic Peptide 22 (Less than 100) pg/mL Serum Total Protein (6.4-8.9) g/dL Albumin (3.5-5.7) g/dL Globulin (2.4-3.5) g/dL Albumin/Globulin Ratio (1.1-2.2) Lipase (11-82) Units/L Urine Color (Yellow) Urine Clarity (Clear) Urine pH (5.0-8.0) pH Units Ur Specific [place] (1.010-1.025) Urine Protein (Neg-Trace) mg/dL Urine Glucose (UA) (Normal) mg/dL Urine Ketones (Negative) mg/dL Urine Blood (Negative) Urine Nitrite (Negative) Urine Bilirubin (Negative) Urine Urobilinogen (Normal) mg/dL Ur Leukocyte Esterase (Negative) Urine Microscopic RBC (0-3) per hpf Urine Microscopic WBC (0-3) per hpf Ur Squamous Epith Cells (None-Few) per lpf Urine Bacteria (None-Few) per hpf Hyaline Casts (None-Few) per lpf Urine Yeast (None Seen) per hpf Ur Culture Indicated? (NO) - Radiology Data Radiology results reviewed: Yes I reviewed the patient's radiology results. - EKG Data EKG attestation: Yes I reviewed and interpreted this EKG. EKG results narrative: EKG demonstrates normal sinus rhythm with short [place] interval, ventricular rate 83 [place] 1:15 QRS duration 98 QTC 424 with no acute ischemic changes Attestation Statement - Attestation Attestation: Patient was seen with resident physician. I reviewed the history, physical, assessment and plan, and agree with the findings. I also personally evaluated this patient and had [id number] time with this patient. 52-year-old male presents to the emergency department with chief complaint of testicular pain and swelling. Patient is a cancer patient who suffers from rectal cancer. He has significant decubitus ulcers, and he noticed over the last 2-3 days his testicles have gotten very swollen to the point that they are seeping fluid. He said they have also become painful. They called Dr. Perez patient's oncologist who recommended he come to the emergency department for evaluation and treatment. No fevers or chills no chest pain or shortness of breath. On exam vital signs are stable. ENT is unremarkable. Heart regular rate. Lungs clear. Abdomen is soft there is no tenderness. Patient has a rather large decubitus ulcer. examination patient has swollen testicles pretty considerably. Some tenderness to palpation. No obvious erythema. Neurologically the patient's intact. She also be noted that the patient has bilateral nephrostomy tubes and the fluid that is coming out of the nephrostomy tubes appears purulent. ED course. Unclear was causing the testicular swelling we will get an ultrasound of the testicles but were also get a CT scan of the abdomen and pelvis both to check the placement of the nephrostomy tubes and also to check to make sure he does not have some kind of cancer this causing outflow obstruction resulting in testicular swelling. We will do basic labs. Once results are back we will discuss the case with Dr. Perez and disposition patient accordingly. CT scan did not show appreciable changes from old CT scans. There is nothing that was obstructing to explain his scrotal edema. Ultrasound of the scrotum was equally unrevealing. He did of a hydrocele as well as edema noted but no obvious abnormalities that could be seen. This could just generally be mild fluid overload he does have some kidney injury. We will treat with Lasix. We discussed the case with Dr. Perez suggested antibiotics as well. He does have bilateral nephrostomy tubes and seems to have an infection there. We also discussed the case with the hospitalist service to arrange for admission. Hemodynamically the patient remained stable while in the ER. Agree with resident physician assessment and plan.
[2017-08-25 21:14] LABS: Albumin 2.9 g/dL (3.5-5.7); Albumin/Globulin Ratio 0.9 (1.1-2.2); Bilirubin,Total 0.2 mg/dL (0.3-1.0); Calcium 8.1 mg/dL (8.6-10.3); Globulin 3.1 g/dL (2.4-3.5); Potassium 3.8 mEq/L (3.5-5.1)
[2017-08-25 21:15] LABS: Hemoglobin 6.9 g/dL (12.9-16.9)
[2017-08-25] MEDS ORDERED: cefTRIAXone 1,000 MG in Water for inj. (sterile) 10 ML IVP ONE (22:19)
[2017-08-25] MEDS ORDERED: Furosemide 20 MG/2 ML VIAL IVP ONE (22:38)
[2017-08-26] MEDS ORDERED: *HR* HYDROmorphone (PF) 1 MG/ML SYRINGE IVP ONE (00:22)
[2017-08-26] MEDS ORDERED: Ondansetron 4 MG/2 ML VIAL IVP STA (00:22)
[2017-08-26] MEDS ORDERED: Naloxone 0.4 MG/ML INJ IVP PRN (02:37)
--- NOTE | 2017-08-26 02:40 | Internal Med History&Physical ---
<Julio Louis - Last Filed: 08/26/17 04:22> Date of Encounter: 08/26/17 Time of Encounter: 02:30 Assessment and Plan (1) Scrotal edema Current visit: Yes Status: Acute US scrotum shows right sided hydrocele, left sided edema vs cellulitis. CT pelvis/abd does not demonstrated lymphatic or venous obstruction. Plan: likely edematous state secondary to hypoalbuminemia, volume overload, in absence of venous/lymphatic obstruction. Strict I/Os; Renal diet with 1500mg salt and 2L fluid restriction. Albumin 25mg Lasix 20mg IV daily. (2) Metastatic adenocarcinoma to colorectal region Current visit: No Status: Chronic Continuing Trifluridine/Tipiracil 40mg BID. Dr. Barry aware of pt's current admission. (3) Pressure ulcer of coccygeal region, stage 4 Current visit: No Status: Chronic Erosive changes to sacrum/coccyx per CT. Purulent discharge, 5cm surface. Will consult general surgery this AM. Wound consult. Starting Vancomycin(renally dosed)/Zosyn. (4) CKD (chronic kidney disease) stage 3, GFR 30-59 ml/min Current visit: Yes Status: Acute Will monitor Lasix usage, current Creatinine 2.13, consistently between 1.7-2.5 Creat. (5) History of nephrostomy Current visit: Yes Status: Acute Mild purulent discharge from nephrostomy tubing and ulcer, will start Vancomycin /Zosyn. (6) Anemia Current visit: No Status: Chronic Anemia likely CKD/chronic malignancy. No acute blood loss. Will transfuse 1U pRBC, hemoglobin of 6.9. Qualifiers: Anemia type: due to chronic kidney disease Chronic kidney disease stage: stage 3 (moderate) Qualified Code(s): N18.3 - Chronic kidney disease, stage 3 (moderate); D63.1 - Anemia in chronic kidney disease; D63.1 - Anemia in chronic kidney disease (7) DVT prophylaxis Current visit: No Status: Acute SQ Heparin 5000U q12h. Internal Medicine - H&P: HPI Admitted From: Emergency Dept Plans for Post Hospital Care: Home History of present illness: Mr. Taobr is a 52 year old male who presents with 3 days of scrotal and bilateral lower extremity swelling with past medical history of metastatic rectal cancer diagnosed 2006, oncology with Dr. Barry, on Trifluridine/tipiracil, presence of bilateral nephrostomy tubes with bladder removal due to metastasis, CKD stage 3. 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 +Moderate testicular pain, less with elevation of the testes, denies fever, chest discomfort, shortness or breath, or right upper quadrant pain. Past Med Surg Social Fam HX - Past Medical History Medical history: arthritis, cancer, GERD, hyperlipidemia, hypertension, malignancy, osteoporosis, renal disease Psychiatric history: no psych history - Past Surgical History Surgical History: cancer surgery, colectomy, colostomy, prostatectomy, other - Social History Smoking Status: Never smoker Smokeless Tobacco Status: No Alcohol use: none Drug use: none - Family History Son Living Status: Still Living Hx Family Cancer: Yes (mother had breast cancer) Internal Medicine - H&P: Meds Prochlorperazine Maleate [Compazine] 10 mg PO Q8HR PRN #90 tablet 01/16/17 [Rx] Magnesium Oxide 500 mg PO BID #20 capsule 02/08/17 [Rx] Oxycodone HCl [Oxycontin] 80 mg PO Q12H #120 tab.er.12h 05/23/17 [Rx] Sulfamethoxazole/Trimeth DS [Bactrim Ds] 1 each PO BID #28 tablet 06/09/17 [Rx] Trifluridine/Tipiracil HCl [Lonsurf 20 mg-8.19 mg Tablet] 2 each PO BID #40 tablet 08/01/17 [Rx] Ondansetron ODT [Zofran ODT] 4 mg PO Q8H PRN #30 tab.rapdis 08/09/17 [Rx] Oxycodone HCl [Roxicodone 30 MG Immed Release] 30 - 60 mg PO Q6HR PRN #180 tablet 08/09/17 [Rx] Lonsurf 20 mg-8.19 mg Tablet 40 mg PO BID 08/26/17 [History] 3 Allergy/AdvReac Type Severity Reaction Status Date / Time meperidine [From Demerol] Allergy Vomiting Verified 06/04/17 15:17 nalbuphine [From Nubain] Allergy See Verified 06/04/17 15:17 Comments All Systems PM: A 10-system review of systems was performed and is negative for pertinent findings except as documented above in the HPI. - Constitutional Vitals: Temp Pulse Resp BP Pulse Ox 98.0 F 80 16 119/77 100 08/26/17 01:05 08/26/17 01:05 08/26/17 01:05 08/26/17 01:05 08/26/17 01:05 General appearance: Present: A&O X 3, no acute distress - Head Head exam: Present: atraumatic - Respiratory Respiratory exam: Present: CTAB - Cardiovascular Cardiovascular exam: Present: RRR, +S1, +S2. Absent: JVD - Additional comments: grossly enlarged 4.5x6cm scrotum, no penile erythema Sacral ulcer, depth unspecified,5cm surface diameter. - Extremities Exam Extremities exam: Present: calf tenderness (right), pedal edema (+2 > right) - Back Exam Additional comments: bilateral nephrostomy tubes Internal Med - H&P Results - Labs CBC & Chem 7: 08/26/17 03:47 08/26/17 03:47 <Kaye Mccarthy - Last Filed: 08/26/17 05:28> Date of Encounter: 08/26/17 Time of Encounter: 02:00 Internal Medicine - H&P: HPI History of present illness: Mr. Tabor is a 52 year old male All Systems PM: A 10-system review of systems was performed and is negative for pertinent findings except as documented above in the HPI. - Constitutional Vitals: Temp Pulse Resp BP Pulse Ox 98.1 F 72 16 125/65 92 08/26/17 05:10 08/26/17 05:10 08/26/17 05:10 08/26/17 05:10 08/26/17 05:10 Internal Med - H&P Results - Labs CBC & Chem 7: 08/26/17 03:47 08/26/17 03:47 Labs: Short CBC 08/26/17 Range/Units 03:47 WBC 5.7 (4.3-11.1) K/mcL Hgb 6.7 L (12.9-16.9) g/dL Hct 21.4 L (37.5-50.1) % Plt Count 179 (140-400) K/mcL Neutrophils # 4.6 (1.6-8.9) K/mcL BMP 08/26/17 03:47 Sodium 139 Potassium 3.8 Chloride 111 H Carbon Dioxide 23 BUN 34 H Creatinine 2.19 H Glucose 146 H Calcium 7.9 L - Attending Attestation I examined this patient and my medical decision-making was reviewed with the Resident Physician, Julio Louis. I agree with the documented findings, disposition and treatment plan as described except to the extent set forth below. 52-year-old male patient with history of metastatic rectal cancer status post colostomy, chronic kidney disease stage III, sister status post bilateral nephrostomy, chronic sacral decubitus ulcer presented to the ER with complaints of painful scrotal edema over the past 2-3 days. It is also noted increased swelling in his lower extremities. Denies any cough or shortness of breath. No chest pain. No palpitations. No orthopnea. Denies any fever or chills. He is also noted increased drainage from his sacral decubitus ulcer wound with foul-smelling. He has a chronic IRINA drain from prior pelvic abscess which does not drain much. He has not noted any hematemesis or melena. On exam, patient is awake and alert. Heart sounds are normal. Breath sounds are normal. Patient has pedal edema greater on the right compared to the left which is much worse than his usual baseline. Also has significant scrotal edema with erythema. Sacral decubitus ulcer wound is draining clear discharge. CT scan of the abdomen and pelvis shows significant soft tissue edema involving the pelvis and legs and scrotum. Patient also has cavitary changes and soft tissue thickening in the perineum and pelvis which chronic. Scrotal ultrasound shows hydrocele and scrotal wall edema with concern for cellulitis. Painful Scrotal edema: Will treat symptomatically with intravenous diuretics. Patient does have hypoalbuminemia. Will give a trial of albumin. Antibiotics for possible superficial cellulitis. Chronic sacral decubitus ulcer with possible infection: Patient having clear discharge with foul-smelling. Treat with IV antibiotics. Consult surgery for recommendations regarding any possible debridement. Metastatic adenocarcinoma of the colorectal region: Continue Lonsurf. Follow up with oncology after discharge. Chronic kidney disease stage III: Monitor renal function closely especially as patient will be on Lasix. Creatinine currently is at baseline. Anemia: Acute on chronic. Due to chronic kidney disease and chronic neoplastic disease. Hemoglobin is 6.9. We will transfuse 1 unit packed blood cells. Asymmetric bilateral pedal edema: Right greater than left. Will get venous Doppler of the right lower extremity to look for any DVT.
[2017-08-26] MEDS ORDERED: Albumin 25% 25gram/100mL 25 GM/100 ML IV.SOLN IVPB ONE (02:46)
[2017-08-26 03:58] LABS: Basophils % 0.7 %; Eosinophils # 0.1 K/mcL (0.0-0.6); Eosinophils % 1.9 %; Hematocrit 21.4 % (37.5-50.1); Hemoglobin 6.7 g/dL (12.9-16.9); Immature Granulocytes % 1.1 % (0-4); Lymphocytes # 0.7 K/mcL (0.6-4.6); Lymphocytes % 11.6 %; Mean Corpuscular HGB Conc 31.3 g/dL (31.6-35.5); Mean Corpuscular Hemoglobin 30.6 pg (28.0-33.3); Mean Corpuscular Volume 97.7 fL (83.0-100.0); Mean Platelet Volume 9.1 fL (9.4-12.4); Monocytes # 0.2 K/mcL (0.0-1.3); Monocytes % 3.5 %; Neutrophils # 4.6 K/mcL (1.6-8.9); Nucleated Red Blood Cells 0.4 /100 WBC (0); Platelet Count 179 K/mcL (140-400); Red Blood Count 2.19 M/mcL (4.19-5.50); Red Cell Distribution Width 16.9 % (11.5-14.5); Segmented Neutrophils % 81.2 %
[2017-08-26 04:04] LABS: Hemoglobin A1C 4.4 %
[2017-08-26 04:15] LABS: Calcium 7.9 mg/dL (8.6-10.3); Potassium 3.8 mEq/L (3.5-5.1)
[2017-08-26] MEDS: *HR* OxyCODONE Immed Rel 15 MG TABLET PO PRN ×3 (05:34→18:45)
[2017-08-26] MEDS: *HR* Heparin 5,000 UNIT/ML VIAL SQ SCH ×2 (05:36→17:17)
[2017-08-26] MEDS: Vancomycin 1,000 MG in D5% in Water 250 ML IVPB SCH (05:36)
[2017-08-26] MEDS ORDERED: 0.9 % Sodium Chloride 250 ML ONE ×2 (06:00→18:08)
[2017-08-26] MEDS: Piperacillin/Tazobactam 3.375 GM/200 ML BAG IVPB SCH ×3 (07:34→23:11)
[2017-08-26] MEDS: LONSURF PO SCH ×2 (09:44→21:08)
[2017-08-26] MEDS: Furosemide 20 MG/2 ML VIAL IVP SCH (09:44)
[2017-08-26] MEDS: *HR* OxyCODONE ER (12 HR) 40 MG TABLET PO SCH ×2 (10:02→21:02)
--- NOTE | 2017-08-26 11:59 | General Surgery Consult Note ---
<Mary Spears - Last Filed: 08/26/17 13:03> Date of Encounter: 08/26/17 Time of Encounter: 11:57 Assessment and Plan (1) Pressure ulcer of coccygeal region, stage 4 Current Visit: Yes Status: Chronic CT abdomen pelvis 08/25/17--shows erosive changes of sacrum and coccyx Patient of Dr. Martin, whom he has seen in the past for debridement Receiving IV vancomycin and zosyn Plan: No surgical debridement at this time Continue daily wound care with gauze soaked in 0.25% Dakin's solution Follow up in [address] Martin Please call with any new questions or concerns (2) Metastatic adenocarcinoma to colorectal region Current Visit: Yes Status: Chronic History of Present Illness Consult date: 08/26/17 Reason for consult: wound care Requesting physician: Julio Louis History of present illness: Patient is a 52-year-old white male with a history of metastatic rectal cancer status post colostomy who presented to the ER with multiple complaints including increased, foul-smelling drainage from his chronic sacral decubitus ulcer. Patient goes to wound clinic once a month to have his sacral ulcer evaluated, he is a patient of Dr. Martin. General surgery has been consulted for recommendations and evaluation of this ulcer. Past Med Surg Social Fam HX - Past Medical History Medical history: arthritis, cancer, GERD, hyperlipidemia, hypertension, malignancy, osteoporosis, renal disease Psychiatric history: no psych history - Past Surgical History Surgical History: cancer surgery, colectomy, colostomy, prostatectomy, other - Social History Smoking Status: Never smoker Smokeless Tobacco Status: No Alcohol use: none Drug use: none - Family History Son Living Status: Still Living Hx Family Cancer: Yes (mother had breast cancer) Medications and Allergies Prochlorperazine Maleate [Compazine] 10 mg PO Q8HR PRN #90 tablet 01/16/17 [Rx] Magnesium Oxide 500 mg PO BID #20 capsule 02/08/17 [Rx] Oxycodone HCl [Oxycontin] 80 mg PO Q12H #120 tab.er.12h 05/23/17 [Rx] Sulfamethoxazole/Trimeth DS [Bactrim Ds] 1 each PO BID #28 tablet 06/09/17 [Rx] Trifluridine/Tipiracil HCl [Lonsurf 20 mg-8.19 mg Tablet] 2 each PO BID #40 tablet 08/01/17 [Rx] Ondansetron ODT [Zofran ODT] 4 mg PO Q8H PRN #30 tab.rapdis 08/09/17 [Rx] Oxycodone HCl [Roxicodone 30 MG Immed Release] 30 - 60 mg PO Q6HR PRN #180 tablet 08/09/17 [Rx] Lonsurf 20 mg-8.19 mg Tablet 40 mg PO BID 08/26/17 [History] 3 Allergy/AdvReac Type Severity Reaction Status Date / Time meperidine [From Demerol] Allergy Vomiting Verified 06/04/17 15:17 nalbuphine [From Nubain] Allergy See Verified 06/04/17 15:17 Comments Review of Systems All systems PM: A 10-system review of systems was performed and is negative for pertinent findings except as documented above in the HPI. General Surgery Exam Initial Vital Signs Temp Pulse Resp BP Pulse Ox 98.0 F 117 18 107/62 100 08/25/17 19:52 08/25/17 19:52 08/25/17 19:52 08/25/17 19:52 08/25/17 19:52 - General physical appearance no distress, other (underweight) - Eyes normal ocular movement - Respiratory normal expansion, normal respiratory effort - Cardiovascular Cardiovascular exam: Present: RRR - Integumentary Integumentary general surgery: Present: other (large sacral ulcer, coccyx exposed, wound packed with abd pad covering) - Neurologic Present: other (no focal deficits) - Psychiatric Psychiatric general surgery: Present: A&Ox3 Exam Initial Vital Signs Temp Pulse Resp BP Pulse Ox 98.0 F 117 18 107/62 100 08/25/17 19:52 08/25/17 19:52 08/25/17 19:52 08/25/17 19:52 08/25/17 19:52 Results - Labs 08/26/17 03:47 08/26/17 03:47 Abnormal lab results RBC 2.19 M/mcL (4.19-5.50) L 08/26/17 03:47 Hgb 6.7 g/dL (12.9-16.9) L 08/26/17 03:47 Hct 21.4 % (37.5-50.1) L 08/26/17 03:47 MCHC 31.3 g/dL (31.6-35.5) L 08/26/17 03:47 RDW 16.9 % (11.5-14.5) H 08/26/17 03:47 MPV 9.1 fL (9.4-12.4) L 08/26/17 03:47 Nucleated RBCs/100 WBC 0.4 /100 WBC (0) H 08/26/17 03:47 ESR 80 mm/hr (0-10) H 08/26/17 03:47 Chloride 111 mEq/L (98-107) H 08/26/17 03:47 BUN 34 mg/dL (6-20) H 08/26/17 03:47 Creatinine 2.19 mg/dL (0.70-1.30) H 08/26/17 03:47 Est GFR ( Amer) 38 (> 60) L 08/26/17 03:47 Est GFR (Non-Af Amer) 32 (> 60) L 08/26/17 03:47 Glucose 146 mg/dL (70-105) H 08/26/17 03:47 Calcium 7.9 mg/dL (8.6-10.3) L 08/26/17 03:47 Total Bilirubin 0.2 mg/dL (0.3-1.0) L 08/25/17 20:48 C-Reactive Protein 50 mg/L (Less than 10) H 08/26/17 03:47 Serum Total Protein 6.0 g/dL (6.4-8.9) L 08/25/17 20:48 Albumin 2.9 g/dL (3.5-5.7) L 08/25/17 20:48 Albumin/Globulin Ratio 0.9 (1.1-2.2) L 08/25/17 20:48 Urine Clarity Turbid (Clear) A 08/25/17 20:24 Urine Protein 30 mg/dL (Neg-Trace) H 08/25/17 20:24 Urine Blood Moderate (Negative) H 08/25/17 20:24 Ur Leukocyte Esterase Large (Negative) H 08/25/17 20:24 Urine Microscopic RBC 15-30 per hpf (0-3) H 08/25/17 20:24 Urine Microscopic WBC TNTC per hpf (0-3) H 08/25/17 20:24 Ur Squamous Epith Cells Moderate per lpf (None-Few) H 08/25/17 20:24 Urine Yeast Many per hpf (None Seen) H 08/25/17 20:24 Ur Culture Indicated? YES (NO) A 08/25/17 20:24 Diabetes panel 08/26/17 08/26/17 Range/Units 03:47 03:47 Sodium 139 (136-145) mEq/L Potassium 3.8 (3.5-5.1) mEq/L Chloride 111 H (98-107) mEq/L Carbon Dioxide 23 (23-29) mEq/L BUN 34 H (6-20) mg/dL Creatinine 2.19 H (0.70-1.30) mg/dL Glucose 146 H (70-105) mg/dL Hemoglobin A1c 4.4 ( - 5.6) % Calcium 7.9 L (8.6-10.3) mg/dL Calcium panel 08/26/17 Range/Units 03:47 Calcium 7.9 L (8.6-10.3) mg/dL Pituitary panel 08/26/17 Range/Units 03:47 Sodium 139 (136-145) mEq/L Potassium 3.8 (3.5-5.1) mEq/L Chloride 111 H (98-107) mEq/L Carbon Dioxide 23 (23-29) mEq/L BUN 34 H (6-20) mg/dL Creatinine 2.19 H (0.70-1.30) mg/dL Glucose 146 H (70-105) mg/dL Calcium 7.9 L (8.6-10.3) mg/dL Adrenal panel 08/26/17 Range/Units 03:47 Sodium 139 (136-145) mEq/L Potassium 3.8 (3.5-5.1) mEq/L Chloride 111 H (98-107) mEq/L Carbon Dioxide 23 (23-29) mEq/L BUN 34 H (6-20) mg/dL Creatinine 2.19 H (0.70-1.30) mg/dL Glucose 146 H (70-105) mg/dL Calcium 7.9 L (8.6-10.3) mg/dL All other labs normal. Consult Discharge Plan - Plan Referrals: NONE,PCP [Primary Care Provider] - <Gilberto Malloy - Last Filed: 08/26/17 13:48> Date of Encounter: 08/26/17 Review of Systems All systems PM: A 10-system review of systems was performed and is negative for pertinent findings except as documented above in the HPI. General Surgery Exam Initial Vital Signs Temp Pulse Resp BP Pulse Ox 98.0 F 117 18 107/62 100 08/25/17 19:52 08/25/17 19:52 08/25/17 19:52 08/25/17 19:52 08/25/17 19:52 Exam Initial Vital Signs Temp Pulse Resp BP Pulse Ox 98.0 F 117 18 107/62 100 08/25/17 19:52 08/25/17 19:52 08/25/17 19:52 08/25/17 19:52 08/25/17 19:52 Results - Labs 08/26/17 03:47 08/26/17 03:47 Abnormal lab results RBC 2.19 M/mcL (4.19-5.50) L 08/26/17 03:47 Hgb 6.7 g/dL (12.9-16.9) L 08/26/17 03:47 Hct 21.4 % (37.5-50.1) L 08/26/17 03:47 MCHC 31.3 g/dL (31.6-35.5) L 08/26/17 03:47 RDW 16.9 % (11.5-14.5) H 08/26/17 03:47 MPV 9.1 fL (9.4-12.4) L 08/26/17 03:47 Nucleated RBCs/100 WBC 0.4 /100 WBC (0) H 08/26/17 03:47 ESR 80 mm/hr (0-10) H 08/26/17 03:47 Chloride 111 mEq/L (98-107) H 08/26/17 03:47 BUN 34 mg/dL (6-20) H 08/26/17 03:47 Creatinine 2.19 mg/dL (0.70-1.30) H 08/26/17 03:47 Est GFR ( Amer) 38 (> 60) L 08/26/17 03:47 Est GFR (Non-Af Amer) 32 (> 60) L 08/26/17 03:47 Glucose 146 mg/dL (70-105) H 08/26/17 03:47 Calcium 7.9 mg/dL (8.6-10.3) L 08/26/17 03:47 Total Bilirubin 0.2 mg/dL (0.3-1.0) L 08/25/17 20:48 C-Reactive Protein 50 mg/L (Less than 10) H 08/26/17 03:47 Serum Total Protein 6.0 g/dL (6.4-8.9) L 08/25/17 20:48 Albumin 2.9 g/dL (3.5-5.7) L 08/25/17 20:48 Albumin/Globulin Ratio 0.9 (1.1-2.2) L 08/25/17 20:48 Urine Clarity Turbid (Clear) A 08/25/17 20:24 Urine Protein 30 mg/dL (Neg-Trace) H 08/25/17 20:24 Urine Blood Moderate (Negative) H 08/25/17 20:24 Ur Leukocyte Esterase Large (Negative) H 08/25/17 20:24 Urine Microscopic RBC 15-30 per hpf (0-3) H 08/25/17 20:24 Urine Microscopic WBC TNTC per hpf (0-3) H 08/25/17 20:24 Ur Squamous Epith Cells Moderate per lpf (None-Few) H 08/25/17 20:24 Urine Yeast Many per hpf (None Seen) H 08/25/17 20:24 Ur Culture Indicated? YES (NO) A 08/25/17 20:24 Diabetes panel 08/26/17 08/26/17 Range/Units 03:47 03:47 Sodium 139 (136-145) mEq/L Potassium 3.8 (3.5-5.1) mEq/L Chloride 111 H (98-107) mEq/L Carbon Dioxide 23 (23-29) mEq/L BUN 34 H (6-20) mg/dL Creatinine 2.19 H (0.70-1.30) mg/dL Glucose 146 H (70-105) mg/dL Hemoglobin A1c 4.4 ( - 5.6) % Calcium 7.9 L (8.6-10.3) mg/dL Calcium panel 08/26/17 Range/Units 03:47 Calcium 7.9 L (8.6-10.3) mg/dL Pituitary panel 08/26/17 Range/Units 03:47 Sodium 139 (136-145) mEq/L Potassium 3.8 (3.5-5.1) mEq/L Chloride 111 H (98-107) mEq/L Carbon Dioxide 23 (23-29) mEq/L BUN 34 H (6-20) mg/dL Creatinine 2.19 H (0.70-1.30) mg/dL Glucose 146 H (70-105) mg/dL Calcium 7.9 L (8.6-10.3) mg/dL Adrenal panel 08/26/17 Range/Units 03:47 Sodium 139 (136-145) mEq/L Potassium 3.8 (3.5-5.1) mEq/L Chloride 111 H (98-107) mEq/L Carbon Dioxide 23 (23-29) mEq/L BUN 34 H (6-20) mg/dL Creatinine 2.19 H (0.70-1.30) mg/dL Glucose 146 H (70-105) mg/dL Calcium 7.9 L (8.6-10.3) mg/dL All other labs normal. - Attending Attestation I have personally seen and examined the patient. I have reviewed pertinent labs , imaging, progress notes, including this one. I agree with the above assessment and plan.
--- NOTE | 2017-08-26 15:42 | Oncology Inp Consult Note ---
Date of Encounter: 08/27/17 Time of Encounter: 15:39 Assessment and Plan (1) Severe protein-calorie malnutrition Status: Chronic Assessment and plan: current albumin 1.7. This is contributing to extensive subcutaneous edema Sacral decubitus ulcer he's getting wound dressing through Dr. Malloy (2) Metastatic adenocarcinoma to colorectal region Status: Chronic Assessment and plan: CT abdomen and pelvis on August 25, 2017 without contrast showed no new metastasis. His CEA is progressed in currently 1027 on July 15, 2017. on January his CEA was 350 but slowly progressed since then At this time will hold Lonsurf. Can resume that once his general addition improves. He is currently on off week just finished one cycle (3) Scrotal edema Status: Acute Assessment and plan: This is likely related to his right lower extremity edema and could be lymphedema. No evidence of ascites. His low albumin is contributing to some but unlikely that he has edema 1 leg and not the other with hypoalbuminemia area He already received IV albumin Venous Doppler negative for acute DVT right lower extremity - Data of Consult Patient: known to practice within the last 3 years Requesting Physician: Tamera Joyner CNP Primary Care Provider: PCP NONE - Consult Narrative Reason for consult: metastatic rectal cancer History of present illness: Mr. Tabor is a 52 year old male hospitalize with progressive anemia. He's is getting one unit of packed RBc transfusion. Also sacral decubitus ulcer evaluated by surgeon Dr. Malloy he has bilateral defrosted the tubes. he also has possible cellulitis left testicle. Hydrocele right side. He had exchange of bilateral nephrostomy tubes and pelvic drain interventional radiology on July 05, 2017. Another exchange done on 08/27/2017 CT abdomen and pelvis August 25, 2017 showedsignificant soft tissue subcutaneous extending to legs and scrotum. Persistent cavitary changes in the perineum. Stable right lower lobe lung metastas L3 lesion could be hemangioma. Large amount of stool in the: gallstone oncological history He was diagnosed with rectal cancer in 2006, s/p neoadjuvant chemotherapy and radiation with 5-FU, followed by a resection and permanent colostomy at [facility] followed by additional therapy with FOLFOX. He had an MRI of his pelvis and a biopsy of pre sacral mass that demonstrates recurrent colorectal cancer He received cycle 1 on 04/17/2013 complicated by skin reaction and severe nausea, bx sowed KRAS wild type and so panitumumab was added to cycle 2 given on 05/01 without 5-FU bolus. He had severe skin toxicity from 5-FU and transitioned to irinotecan plus panitumumab. Completed 4 cycles of FOLFIRI + panitumumab with marked decline in his CEA and some improvement in his MRI. He had pelvic exenteration in July 2013 where he was found to have bony involvement that was jamaica-knifed and clipped at the time of surgery. He had adjuvant radiation to a small field in his pelvis along the bone with xeloda but CEA would rise on his radiation. received a single dose of Panitumumab on 11/10/2013. This was complicated by severe diarrhea, fatigue, and a break from his radiation for a week. He was continued without additional panitumumab and completed radiation in November 2013. He developed bilateral ureteral obstruction and renal failure. s/p bilateral percutaneous stents placed and treated for urosepsis. He was taken to the operating room for lysis of adhesions and stenting of his ureters in July 2014. needing external drainage. Pathology from his surgery was negative for recurrence but his CEA has been steadily rising. He has had pelvic abscess and was drained by IR and placed on ABX for MRSA. He has had continued increase in his CEA. CT from October 2014 showed his complex pelvic fluid collection and some shotty LAD but no obvious mass. He has been referred to [facility] for further opinion regarding his rising CEA and pain. He saw Dr. Chisholm who is referred him to surgery and urology for their opinion on the matter. His MRI in December showed nodularity along his fluid collection. He has had a CT-guided biopsy of this area which has confirmed recurrent adenocarcinoma. Surgery has stated there is no options for him surgically. He is now seen in follow-up for pain management, his recurrent cancer, and PCN tube management. Most recently, he has been on weekly cetuximab with normalization of his CEA. He has developed a large stage IV sacral decubitus ulcer. 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 He has been seeing the wound clinic who has placed a wound VAC on his open area. Cultures have grown linette. He was hospitalized 08/10--had positive urine cultures with linette species, was admitted for intractable nausea and vomiting , along with abdominal pain secondary to underlying malignancy and constipation. Patient continued his outpatient treatment for the drained pelvic abscess with Linezolid. He was treated with Micafungin for UTI. Constipation was resolved after initiation of laxatives. Patient's nausea/vomiting improved after initiation of Zyprexa and protonix. He was also switched to Zofran q6h ERYN along with phenergan prn. He has finished his course of linezolid and Micafungin was discontinued after the negative urine and blood cultures were reported. During this hospitalization patient was also noted to have persistent elevated BP despite adequate control of pain, due to which he was started on Amlodipine. His hypertension persisted due to which Lisinopril was added. He responded well to the combination therapy. s/p nephrostomy tubes changed Ct no hydro, stable soft tissue changes in the pelvis 08/10 He had a PET imaging with surgery in [place], [place] S/P IR procedure for IRINA drain (urine)-coil placement On cetuximab wkly (until 02/21/17). Patient had a rising CEA which was 60 then in 170 and then increased to 350. Treatment plan being changed to FOLFOX---C1 03/08/17. Ct CAP--min incr---stable lung nodule, mild prominant groin adenopathy, pelvic mass similar. Sacral lesion/coccyx destruction-fistula extending to rt of coccyx. Patient here to receive modified dose decreased FOLFOX--Cr elevated from baseline of 1.6-1.9 to 2.7 2.8, cr --s/p tube change. Has some bleed from rt nephrostomy tube. PET imaging showed--06/11 mild increase in lung nodule, large pelvic soft tissue mass with fluid collection and extending posteriorly to skin/sarum coccyx erosions. Started lonsurf 40 scheduled to take BID on 06/17/17 07/05/17--patient reports that he has been taking his medication half the dose. He is having his stent changed today. Pain under control with current medications. He is not taking fentanyl because he had felt drowsy and had a fall prior to last visit. Appetite good and weight stable. Past Med Surg Social Fam HX - Past Medical History Medical history: arthritis, cancer, GERD, hyperlipidemia, hypertension, malignancy, osteoporosis, renal disease Psychiatric history: no psych history - Past Surgical History Surgical History: cancer surgery, colectomy, colostomy, prostatectomy, other - Social History Smoking Status: Never smoker Smokeless Tobacco Status: No Alcohol use: none Drug use: none - Family History Son Living Status: Still Living Hx Family Cancer: Yes (mother had breast cancer) Medications and Allergies Prochlorperazine Maleate [Compazine] 10 mg PO Q8HR PRN #90 tablet 01/16/17 [Rx] Magnesium Oxide 500 mg PO BID #20 capsule 02/08/17 [Rx] Oxycodone HCl [Oxycontin] 80 mg PO Q12H #120 tab.er.12h 05/23/17 [Rx] Sulfamethoxazole/Trimeth DS [Bactrim Ds] 1 each PO BID #28 tablet 06/09/17 [Rx] Trifluridine/Tipiracil HCl [Lonsurf 20 mg-8.19 mg Tablet] 2 each PO BID #40 tablet 08/01/17 [Rx] Ondansetron ODT [Zofran ODT] 4 mg PO Q8H PRN #30 tab.rapdis 08/09/17 [Rx] Oxycodone HCl [Roxicodone 30 MG Immed Release] 30 - 60 mg PO Q6HR PRN #180 tablet 08/09/17 [Rx] Lonsurf 20 mg-8.19 mg Tablet 40 mg PO BID 08/26/17 [History] 3 Allergy/AdvReac Type Severity Reaction Status Date / Time meperidine [From Demerol] Allergy Vomiting Verified 06/04/17 15:17 nalbuphine [From Nubain] Allergy See Verified 06/04/17 15:17 Comments Review of systems: Pain and tenderness in the scrotum and right lower extremity. Had some swelling in the right lower extremity the past but improved. Current swelling is on for the last week Oncology - Exam - Constitutional Vitals: Temp Pulse Resp BP Pulse Ox 98.1 F 77 16 103/62 99 08/26/17 15:16 08/26/17 15:16 08/26/17 15:16 08/26/17 15:16 08/26/17 15:16 Exam: GENERAL: Alert and oriented, well appearing. Mental Status: Affect appropriate for circumstances HEENT: Sclerae anicteric. No mucositis or thrush. No other oral or pharyngeal lesions or erythema. Skin: No rashes or petechiae. No evidence of skin malignancy Lymph nodes: No cervical, supraclavicular, axillary, or inguinal adenopathy. Lungs: Air entry normal with normal breath sounds. No rhonchi or wheezing Cardiovascular: Regular rate and rhythm. No skipped beats Abdomen: Soft, nontender; no organomegaly or masses palpable. Extremities: 3+ edema right side extending from inguinal region to the toes. Also significant scrotal edema excoriation in the posterior aspect of scrotum. No major edema on the aft lower extremity Neurologic: Alert, cranial nerves II-XII intact; normal gait; no focal weakness or sensory abnormalities Oncology - Results Labs: Short CBC 08/26/17 Range/Units 03:47 WBC 5.7 (4.3-11.1) K/mcL Hgb 6.7 L (12.9-16.9) g/dL Hct 21.4 L (37.5-50.1) % Plt Count 179 (140-400) K/mcL Neutrophils # 4.6 (1.6-8.9) K/mcL BMP 08/26/17 03:47 Sodium 139 Potassium 3.8 Chloride 111 H Carbon Dioxide 23 BUN 34 H Creatinine 2.19 H Glucose 146 H Calcium 7.9 L Consult Discharge Plan - Plan Referrals: NONE,PCP [Primary Care Provider] -
--- NOTE | 2017-08-26 16:35 | Event Note ---
Date of Encounter: 08/26/17 Time of Encounter: 16:19 (1) Scrotal edema US scrotum shows right sided hydrocele, left sided edema vs cellulitis. CT pelvis/abd does not demonstrated lymphatic or venous obstruction. Likely edematous state secondary to hypoalbuminemia, volume overload, in absence of venous/lymphatic obstruction. Strict I/Os; Renal diet with 1500mg salt and 2L fluid restriction. Albumin 25mg. Lasix 20mg IV daily. (2) Metastatic adenocarcinoma to colorectal region Continuing Trifluridine/Tipiracil 40mg BID. Oncology consulted (3) Pressure ulcer of coccygeal region, stage [address] with erosive changes to sacrum/coccyx. Evaluated by general surgery who noted no surgical debridement indicated at this time. Daily dressing changes with Dakin solution. Will need to follow-up with Gen. surgery in 4 weeks. Cont Vancomycin(renally dosed)/Zosyn. (4) CKD (chronic kidney disease) stage 3, GFR 30-59 ml/min Cr 2.1 which is close to baseline. Avoid nephrotoxic agents as possible. Monitor renal function while on Lasix. (5) History of nephrostomy Current visit: Yes Status: Acute Mild purulent discharge from nephrostomy tubing and ulcer. Cont Vancomycin/ Zosyn. Patient reports Neph tubes are changed monthly and due to be changed. Consult IR (6) Anemia Hgb 6.9; recieved 1 unit PRBC on admisison. Repeat Hgb 6.7; no active bleeding. Transfuse another unit PRBC. Keep nothing by mouth at midnight for GI consult. Anemia likely CKD/chronic malignancy. No acute blood loss. Will transfuse 1U pRBC, hemoglobin of 6.9. (7) DVT prophylaxis SQ Heparin 5000U q12h. 8. Right leg edema: Right leg appears cellulitic. Doppler negative for DVT. On Vanco as noted above to cover for cellulitis.
[2017-08-26] MEDS: Ondansetron ODT 4 MG TAB.RAPDIS SL PRN (21:15)
[2017-08-26] MEDS: Albumin 25% 25gram/100mL 25 GM/100 ML IV.SOLN IVPB SCH (23:12)
[2017-08-27] MEDS: Vancomycin 1,000 MG in D5% in Water 250 ML IVPB SCH (05:15)
[2017-08-27] MEDS: *HR* Heparin 5,000 UNIT/ML VIAL SQ SCH (05:15)
[2017-08-27] MEDS: *HR* OxyCODONE Immed Rel 15 MG TABLET PO PRN ×3 (05:15→19:41)
[2017-08-27] MEDS: Furosemide 20 MG/2 ML VIAL IVP SCH (09:49)
[2017-08-27] MEDS: *HR* OxyCODONE ER (12 HR) 40 MG TABLET PO SCH ×2 (09:49→21:02)
[2017-08-27] MEDS: Albumin 25% 25gram/100mL 25 GM/100 ML IV.SOLN IVPB SCH ×2 (09:49→17:10)
[2017-08-27] MEDS: LONSURF PO SCH ×2 (09:51→21:03)
[2017-08-27 10:42] LABS: Hematocrit 26.7 % (37.5-50.1); Mean Corpuscular HGB Conc 32.2 g/dL (31.6-35.5); Mean Platelet Volume 9.3 fL (9.4-12.4); Platelet Count 161 K/mcL (140-400); Red Blood Count 2.87 M/mcL (4.19-5.50); Red Cell Distribution Width 17.8 % (11.5-14.5)
[2017-08-27] MEDS ORDERED: 0.9 % Sodium Chloride 500 ML ONE (10:43)
[2017-08-27 10:46] LABS: Hemoglobin 8.6 g/dL (12.9-16.9)
[2017-08-27 10:52] LABS: INR 1.2
--- NOTE | 2017-08-27 11:49 | Gastroenterology Consult Note ---
<Jalyn Troy - Last Filed: 08/27/17 11:46> Date of Encounter: 08/27/17 Time of Encounter: 10:20 - Assessment and plan (1) Anemia Current Visit: No Status: Acute Assessment and plan: Pt has chronic anemia, has dropped to 6.7. He denies any abdominal symptoms. No active bleeding noted. Would recommend symptomatic management as he has multiple comorbid conditions. Dr Lobato spoke with Davina Joyner and will hold off on endoscopy at this time unless active bleeding is noted. Qualifiers: Anemia type: unspecified type Qualified Code(s): D64.9 - Anemia, unspecified - Time Spent With Patient Total time spent is greater than 50% in coordination of care (as documented) at patient's floor/unit and/or counseling patient: GI History of Present Illness - Data of Consult Patient: new to practice Consult date: 08/27/17 Requesting Physician: Tamera Joyner CNP - Consult Narrative Reason for consult: anemia History of present illness: Mr. Tabor is a 52 year old male with a pmhx of arthritis, metastatic rectal cancer with colostomy, and bilateral nephrostomy tubes, GERD, hyperlipidemia, hypertension, osteoporosis, and stage 3 CKD. He was diagnosed with rectal cancer with metastasis to the bladder in 2006. He is status post bladder removal placement of nephrectomy tubes and colostomy. He is followed by Dr. Barry , and is continued on Trifluridine/tipiracil. He is status post XRT. He presents with increased edema to his scrotum and lower extremeties, GI was consulted for anemia with a Hgb 6.7. 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 +Moderate testicular pain, less with elevation of the testes, denies fever, chest discomfort, shortness or breath, or right upper quadrant pain. He denies any nausea, vomiting, or abdominal pain. He denies GERD. He denies constipation, bleeding or tarry stools. Colostomy is draining liquid brown stool. He denies any hematuria. Colonoscopy: EGD: 05/09 gastritis NSAIDS/ASA: none Anticoagulants: none Past Med Surg Social Fam HX - Past Medical History Medical history: arthritis, cancer, GERD, hyperlipidemia, hypertension, malignancy, osteoporosis, renal disease Psychiatric history: no psych history - Past Surgical History Surgical History: cancer surgery, colectomy, colostomy, prostatectomy, other - Social History Smoking Status: Never smoker Smokeless Tobacco Status: No Alcohol use: none Drug use: none - Family History Son Living Status: Still Living Hx Family Cancer: Yes (mother had breast cancer) Review of Systems: GI: as per [place] GENERAL: denies fever, has some chills EYES: denies yellow discoloration ENT: denies pain with swallowing or difficulty swallowing CARDIO: denies chest pain, palpitations RESP: Shortness of breath with exertion : see HPI NEURO: weakness HEME: Denies any bruising MS: chronic back and joint pain DERM: Stage IV decubitus to sacrum PSYCH: history of anxiety or depression - Constitutional Vitals: Temp Pulse Resp BP Pulse Ox 97.8 F 66 18 101/62 99 08/27/17 07:29 08/27/17 07:29 08/27/17 07:29 08/27/17 07:29 08/27/17 07:29 Exam: CONSTITUTIONAL:~alert, no acute distress.~HEAD:~normocephalic.~EYES:~no jaundice.~NECK:~no obvious swelling.~HEART:~regular rate and rhythm, no murmurs. ~LUNGS:~bilateral fair air entry.~ABDOMEN:~non distended, soft, non tender, no masses palpable, no organomegaly.~RECTAL EXAM:~Deferred.~EXTREMITIES:~no clubbing, cyanosis or edema.~SKIN:~pallor noted,.~NEUROLOGIC:~no obvious focal defect.~~~~ Results - Labs CBC & Chem 7: 08/27/17 10:20 08/26/17 03:47 Labs: Last Result ESR 80 mm/hr (0-10) H 08/26/17 03:47 Calcium 7.9 mg/dL (8.6-10.3) L 08/26/17 03:47 Troponin I < 0.03 ng/mL (< 0.04) 08/25/17 20:48 C-Reactive Protein 50 mg/L (Less than 10) H 08/26/17 03:47 Entire Visit Hgb 8.6 g/dL (12.9-16.9) L D 08/27/17 10:20 Hct 26.7 % (37.5-50.1) L 08/27/17 10:20 PT 13.0 Seconds (9.4-12.1) H 08/27/17 10:20 Total Bilirubin 0.2 mg/dL (0.3-1.0) L 08/25/17 20:48 AST 13 Units/L (13-39) 08/25/17 20:48 ALT 9 Units/L (7-52) 08/25/17 20:48 Lipase 17 Units/L (11-82) 08/25/17 20:48 - ABG ABG results: PT/INR, D-dimer PT 13.0 Seconds (9.4-12.1) H 08/27/17 10:20 Consult Discharge Plan - Plan Referrals: NONE,PCP [Primary Care Provider] - <Monico Lobato - Last Filed: 08/27/17 14:08> Date of Encounter: 08/27/17 - Time Spent With Patient Total time spent is greater than 50% in coordination of care (as documented) at patient's floor/unit and/or counseling patient: GI History of Present Illness - Data of Consult Requesting Physician: Tamera Joyner CNP - Consult Narrative History of present illness: Mr. Tabor is a 52 year old male - Constitutional Vitals: Temp Pulse Resp BP Pulse Ox 98.6 F 78 18 108/70 100 08/27/17 12:04 08/27/17 12:04 08/27/17 12:04 08/27/17 12:04 08/27/17 12:04 Results - Labs CBC & Chem 7: 08/27/17 10:20 08/26/17 03:47 Labs: Last Result ESR 80 mm/hr (0-10) H 08/26/17 03:47 Calcium 7.9 mg/dL (8.6-10.3) L 08/26/17 03:47 Troponin I < 0.03 ng/mL (< 0.04) 08/25/17 20:48 C-Reactive Protein 50 mg/L (Less than 10) H 08/26/17 03:47 Entire Visit Hgb 8.6 g/dL (12.9-16.9) L D 08/27/17 10:20 Hct 26.7 % (37.5-50.1) L 08/27/17 10:20 PT 13.0 Seconds (9.4-12.1) H 08/27/17 10:20 Total Bilirubin 0.2 mg/dL (0.3-1.0) L 08/25/17 20:48 AST 13 Units/L (13-39) 08/25/17 20:48 ALT 9 Units/L (7-52) 08/25/17 20:48 Lipase 17 Units/L (11-82) 08/25/17 20:48 - ABG ABG results: PT/INR, D-dimer PT 13.0 Seconds (9.4-12.1) H 08/27/17 10:20 - Attending Attestation I have personally performed a face to face evaluation on this patient. I have reviewed and agree with the care plan. History and Exam by me shows: Mr. Tabor has advanced metastatic rectal cancer. Latest CEA 1700 (up from 350 ) Etiology of anemia multifactorial. Do not recommend endoscopy at this point and patient does not want one as well. Thank you for this consultation. Please call us again if, the need arises.
[2017-08-27] MEDS: Piperacillin/Tazobactam 3.375 GM/200 ML BAG IVPB SCH ×2 (12:26→19:41)
--- NOTE | 2017-08-27 14:39 | IR Procedure Note ---
Date of procedure: 08/27/17 Consent Obtained: Verbal consent, Written consent Timeout: Correct patient and procedure verified, Correct site verified, Time out performed, Skin prep completed Indications: hydronephrosis; pelvic cavity Procedure Performed: exchange of PCN catheters and pelvic drain Was there an family law legal assistant present: No Estimated blood loss (cc): 1 Complications: None; Tolerated procedure well Post Procedure Treatment Plan: gravity drainage Specimen: none
--- NOTE | 2017-08-27 16:19 | Internal Med Progress Note ---
Date of Encounter: 08/27/17 Time of Encounter: 16:01 - Assessment and plan (1) Scrotal edema Current Visit: Yes Status: Acute Assessment and plan: presented with gross scrotal edema. US scrotum shows right sided hydrocele, left sided edema vs cellulitis. CT pelvis/abd does not demonstrated lymphatic or venous obstruction. Edematous state secondary to hypoalbuminemia, volume overload, in absence of venous/lymphatic obstruction. Strict I/Os; Renal diet with 1500mg salt and 2L fluid restriction. Albumin 25mg X 3 doses. Lasix 20mg IV daily. Edema significantly improved on 08/27 exam. (2) Metastatic adenocarcinoma to colorectal region Current Visit: Yes Status: Chronic Assessment and plan: per hx. Oncology consulted. ABD CT 07/2017 with no new metastasis. Evaluated by Oncology who noted progression in CEA which is 1027 (previously 350). Hold chemotherapy at this time. PRN oxycodone with IV Dilaudid for breakthrough pain. Oncology following (3) Anemia Current Visit: No Status: Chronic Assessment and plan: Hgb 6.9; received 2 units PRBC. Anemia likely CKD/chronic malignancy. No acute blood loss. Discussed with patient and he does not want endoscopy at this time. Evaluated by GI who recommended symptomatic management as he has multiple comorbid issues. Repeat Hgb 8.6. Qualifiers: Anemia type: due to chronic kidney disease Chronic kidney disease stage: stage 3 (moderate) Qualified Code(s): N18.3 - Chronic kidney disease, stage 3 (moderate); D63.1 - Anemia in chronic kidney disease; D63.1 - Anemia in chronic kidney disease (4) Severe protein-calorie malnutrition Current Visit: No Status: Chronic Assessment and plan: Serum albumin 1.7. Cont treatment 3 doses as noted above. On high protein supplement shakes. (5) CKD (chronic kidney disease) stage 3, GFR 30-59 ml/min Current Visit: Yes Status: Acute Assessment and plan: Cr 2.1 which is close to baseline. Avoid nephrotoxic agents as possible. Monitor renal function while on Lasix. (6) History of nephrostomy Current Visit: Yes Status: Acute Assessment and plan: purulent discharge noted from nephrostomy tubing and ulcer. S/p bilateral neph tube and biliary drain exchange 08/27/2017 per IR. Repeat UA pending. Cont Vancomycin/Zosyn. (7) Pressure ulcer of coccygeal region, stage 4 Current Visit: Yes Status: Chronic Assessment and plan: ABD CT with erosive changes to sacrum/coccyx. Evaluated by general surgery who noted no surgical debridement indicated at this time. Daily dressing changes with Dakins solution. Will need to follow-up with Gen. surgery in 4 weeks (8) Leg edema, right Current Visit: Yes Status: Acute Assessment and plan: Patient reports chronic edema and pain to right leg, now significantly worsened. Has cellulitic appearance that is somewhat improved with IV ATB. Diminished pulses noted. Lower extremity venous Doppler negative for DVT. Arterial Doppler study pending. PT/OT consult (9) Full code status Current Visit: Yes Status: Acute Assessment and plan: full code; verified with patient on 08/27/17. (10) DVT prophylaxis Current Visit: No Status: Acute Assessment and plan: SCD - Subjective Interval history: Seen and examined at bedside. Patient reports an uneventful night, says he slept okay. No active bleeding. Still with right leg pain; improved from yesterday. Discussed with him the possibility of an EGD with GI consult and he does not want to pursue that at this time. He says pain is not being well controlled with oxycodone alone. He is requesting something for breakthrough pain. No chest pain or shortness of breath. He feels scrotal edema significantly improved. Says he lives alone and may need SNF at discharge. - Constitutional Vitals: Temp Pulse Resp BP Pulse Ox 99.2 F 82 16 104/69 97 08/27/17 15:31 08/27/17 15:31 08/27/17 15:31 08/27/17 15:31 08/27/17 15:31 General appearance: Present: A&O X 3, no acute distress - Head Head exam: Present: atraumatic, normocephalic - Eye Eye exam: Present: PERRL, conjuntiva pink, sclera anicteric Pupils: Present: PERRL - Neck Neck exam general surgery: Present: supple, trachea midline. Absent: lymphadenopathy - Respiratory Respiratory exam: Present: CTAB. Absent: accessory muscle use, rales, rhonchi, wheezes - Cardiovascular Cardiovascular exam: Present: RRR, +S1, +S2. Absent: diastolic murmur, gallop, rubs, systolic murmur - GI/Abdominal GI/Abdominal exam: Present: normal bowel sounds, soft, no peritoneal signs. Absent: distended, tenderness Additional comments: LUQ colostomy - Extremities Exam Extremities exam: Present: pedal edema, warm, radial pulses palpable and symmetrical. Absent: calf tenderness, cyanotic Additional comments: Right lower extremity with out to moderate nonpitting edema, cellulitic appearance, faint pedal pulse - Neurological Exam Neurological exam: Present: CN II-XII intact, oriented X3, no focal deficits. Absent: pronater drift, facial droop, speech deficit - Skin Skin exam: Present: dry, intact Additional comments: large sacral wound, dressing in palce. Not assessed Internal Medicine: Result - Labs CBC & Chem 7: 08/27/17 10:20 08/26/17 03:47 Labs: Short CBC 08/27/17 Range/Units 10:20 WBC 4.9 (4.3-11.1) K/mcL Hgb 8.6 L D (12.9-16.9) g/dL Hct 26.7 L (37.5-50.1) % Plt Count 161 (140-400) K/mcL - ABG Interpretation ABG results: PT/INR, D-dimer PT 13.0 Seconds (9.4-12.1) H 08/27/17 10:20 - Impressions Impressions Biliary Drain Exchange 08/27/17 00:00 IMPRESSION: Exchange of bilateral percutaneous nephrostomy catheters and a pelvic pigtail drain performed. D/ / Severino Farley MD / Severino Farley MD Interpreting Provider: Severino Farley MD Nephrostomy Tube Change 08/27/17 00:00 IMPRESSION: Exchange of bilateral percutaneous nephrostomy catheters and a pelvic pigtail drain performed. D/ / Severino Farley MD / Severino Farley MD Interpreting Provider: Severino Farley MD Nephrostomy Tube Change 08/27/17 00:00 IMPRESSION: Exchange of bilateral percutaneous nephrostomy catheters and a pelvic pigtail drain performed. D/ / Severino Farley MD / Seveirno Farley MD Interpreting Provider: Severino Farley MD Consult Discharge Plan - Plan Referrals: NONE,PCP [Primary Care Provider] -
--- NOTE | 2017-08-27 16:33 | Electrocardiograph Report ---
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
[2017-08-27] MEDS: *HR* HYDROmorphone (PF) 1 MG/ML SYRINGE IVP PRN (23:54)
[2017-08-28] MEDS: Ondansetron ODT 4 MG TAB.RAPDIS SL PRN ×2 (02:55→22:36)
[2017-08-28] MEDS: *HR* OxyCODONE Immed Rel 15 MG TABLET PO PRN ×2 (03:12→22:36)
[2017-08-28 03:16] LABS: Hematocrit 25.5 % (37.5-50.1); Hemoglobin 8.2 g/dL (12.9-16.9); Mean Corpuscular HGB Conc 32.2 g/dL (31.6-35.5); Mean Corpuscular Hemoglobin 30.3 pg (28.0-33.3); Mean Corpuscular Volume 94.1 fL (83.0-100.0); Mean Platelet Volume 9.3 fL (9.4-12.4); Platelet Count 200 K/mcL (140-400); Red Blood Count 2.71 M/mcL (4.19-5.50); Red Cell Distribution Width 17.2 % (11.5-14.5)
[2017-08-28 03:18] LABS: Bilirubin,Urine Negative (Negative); Blood,Urine Moderate (Negative); Clarity,Urine Cloudy (Clear); Color,Urine Yellow (Yellow); Glucose,Urine (UA) Normal (Normal); Ketones,Urine Negative (Negative); Leukocyte Esterase,Urine Small (Negative); Nitrite,Urine Negative (Negative); Protein,Urine 30 mg/dL (Neg-Trace); Urobilinogen,Urine Normal (Normal)
[2017-08-28 03:20] LABS: RBC,Urine 15-30 per hpf (0-3); Squamous Epithelial Cell,Urine Moderate per lpf (None-Few); WBC,Urine 50-100 per hpf (0-3)
[2017-08-28 03:29] LABS: Calcium 8.5 mg/dL (8.6-10.3); Potassium 4.2 mEq/L (3.5-5.1)
[2017-08-28 03:43] LABS: Bacteria,Urine Few per hpf (None-Few); Yeast,Urine Moderate per hpf (None Seen)
[2017-08-28] MEDS: Vancomycin 1,000 MG in D5% in Water 250 ML IVPB SCH (03:56)
[2017-08-28] MEDS: Piperacillin/Tazobactam 3.375 GM/200 ML BAG IVPB SCH ×3 (04:04→20:36)
[2017-08-28] MEDS: Furosemide 20 MG/2 ML VIAL IVP SCH (08:50)
[2017-08-28] MEDS: LONSURF PO SCH ×2 (08:50→21:02)
[2017-08-28] MEDS: *HR* OxyCODONE ER (12 HR) 40 MG TABLET PO SCH ×2 (08:50→20:37)
[2017-08-28] MEDS: *HR* HYDROmorphone (PF) 1 MG/ML SYRINGE IVP PRN ×2 (11:50→16:57)
--- NOTE | 2017-08-28 17:43 | Oncology Inp Progress Note ---
Date of Encounter: 08/29/17 Time of Encounter: 17:41 (1) Severe protein-calorie malnutrition Current Visit: No Status: Chronic Assessment and plan: current albumin 1.7. He continues to get IV albumin (2) Metastatic adenocarcinoma to colorectal region Current Visit: Yes Status: Chronic Assessment and plan: CT abdomen and pelvis on August 25, 2017 without contrast showed no new metastasis. His CEA is progressed in currently 1027 on July 15, 2017. on January his CEA was 350 but slowly progressed since then At this time will hold Lonsurf. Can resume that once his general addition improves. He is currently on off week just finished one cycle (3) Scrotal edema Current Visit: Yes Status: Acute Assessment and plan: So has right lower extremity edema. Likely cellulitis. Blood cultures are negative .Is currently on IV vancomycin and Zosyn. His symptoms have improved Venous Doppler negative for acute DVT right lower extremity (4) Anemia Current Visit: No Status: Chronic Assessment and plan: He received 2 units of packed rbc and current hemoglobin improved to 8.2. Qualifiers: Anemia type: unspecified type Qualified Code(s): D64.9 - Anemia, unspecified Oncology: Subj Interval history: Swelling in the right lower extremity is improving. Erythema has decreased. scrotal swelling improved - Constitutional Vitals: Vital Signs Temp Pulse Resp BP Pulse Ox 08/28/17 14:55 99 F 81 19 97/61 98 08/28/17 11:49 99.0 F 84 17 101/67 98 08/28/17 08:59 97 08/28/17 07:05 98.7 F 65 18 104/66 97 08/28/17 02:48 99.6 F 70 16 123/69 98 08/27/17 22:44 100 F H 82 16 112/67 98 08/27/17 21:06 101/67 08/27/17 19:40 98 08/27/17 18:34 99.2 F 77 16 148/76 100 Intake and Output 08/28/17 08/28/17 08/28/17 07:59 15:59 23:59 Intake Total 250 / 250 1400 / 1400 200 / 200 Output Total 750 / 750 1900 / 1900 600 / 600 Balance -500 / -500 -500 / -500 -400 / -400 Intake: IV Fluids 250 / 250 200 / 200 200 / 200 Zosyn Premix 3.375 GM/200 ML 3. 200 / 200 200 / 200 375 gm In 200 ml @ 50 mls/hr IVPB Q8H [facility] Rx#:[id number] Vancocin 1,000 MG In Dextrose 5 250 / 250 % 250 ML @ 167 mls/hr IVPB Q24H [facility] Rx#:[id number] Oral 1200 / 1200 Output: Stool 150 / 150 350 / 350 Left Nephrostomy 250 / 250 1100 / 1100 150 / 150 Right Nephrostomy 350 / 350 800 / 800 100 / 100 Other: Meal Lunch Percent of Meal Consumed 65% Stool Size Moderate Stool Consistency loose Stool Color Brown Weight 63.911 kg Patient Weight 08/28/17 23:59 Weight 63.911 kg Exam: GENERAL: Alert and oriented, Mental Status: Affect appropriate for circumstances HEENT: Sclerae anicteric. No mucositis or thrush. No other oral or pharyngeal lesions or erythema. Skin: No rashes or petechiae. No evidence of skin malignancy Lymph nodes: No cervical, supraclavicular, axillary, or inguinal adenopathy. Lungs: Air entry normal with normal breath sounds. No rhonchi or wheezing Cardiovascular: Regular rate and rhythm. No skipped beats Abdomen: Soft, nontender; no organomegaly or masses palpable. Extremities: 1-2+ edema right lower extremity. This is improved from before an erythematous decrease. Scrotal swelling better. Neurologic: Alert, cranial nerves II-XII intact; normal gait; no focal weakness or sensory abnormalities Oncology: Obj Data - Labs CBC & Chem 7: 08/29/17 04:10 08/29/17 04:10 Labs: Laboratory Results - last 24 hr 08/28/17 08/28/17 08/28/17 03:00 03:00 03:00 WBC 6.5 RBC 2.71 L Hgb 8.2 L Hct 25.5 L MCV 94.1 MCH 30.3 MCHC 32.2 RDW 17.2 H Plt Count 200 MPV 9.3 L Sodium Potassium Chloride Carbon Dioxide BUN Creatinine Est GFR ( Amer) Est GFR (Non-Af Amer) BUN/Creatinine Ratio Glucose Calculated Osmolality Calcium Urine Color Yellow Urine Clarity Cloudy A Urine pH 6.0 Ur Specific [place] 1.010 Urine Protein 30 H Urine Glucose (UA) Normal Urine Ketones Negative Urine Blood Moderate H Urine Nitrite Negative Urine Bilirubin Negative Urine Urobilinogen Normal Ur Leukocyte Esterase Small H Urine Microscopic RBC 15-30 H Urine Microscopic WBC 50-100 H Ur Squamous Epith Cells Moderate H Urine Bacteria Few Hyaline Casts Test Not Performed Urine Yeast Moderate H Ur Culture Indicated? YES A Vancomycin Trough 15.0 08/28/17 03:00 WBC RBC Hgb Hct MCV MCH MCHC RDW Plt Count MPV Sodium 140 Potassium 4.2 Chloride 107 Carbon Dioxide 26 BUN 29 H Creatinine 2.18 H Est GFR ( Amer) 38 L Est GFR (Non-Af Amer) 32 L BUN/Creatinine Ratio 13 Glucose 108 H Calculated Osmolality 296 Calcium 8.5 L Urine Color Urine Clarity Urine pH Ur Specific [place] Urine Protein Urine Glucose (UA) Urine Ketones Urine Blood Urine Nitrite Urine Bilirubin Urine Urobilinogen Ur Leukocyte Esterase Urine Microscopic RBC Urine Microscopic WBC Ur Squamous Epith Cells Urine Bacteria Hyaline Casts Urine Yeast Ur Culture Indicated? Vancomycin Trough - ABG Interpretation ABG results: PT/INR, D-dimer PT 13.0 Seconds (9.4-12.1) H 08/27/17 10:20 Consult Discharge Plan - Plan Referrals: NONE,PCP [Primary Care Provider] -
--- NOTE | 2017-08-28 18:55 | Internal Med Progress Note ---
Date of Encounter: 08/28/17 Time of Encounter: 10:25 - Assessment and plan (1) Scrotal edema Current Visit: Yes Status: Acute Assessment and plan: She presented to the emergency room with sudden onset scrotal edema. Patient reports onset 4 days ago. Scrotal ultrasound showed right-sided hydrocele, left sided edema versus cellulitis. CT pelvis/abdomen does not show any lymphatic or venous obstruction. Edematous state secondary to hypoalbuminemia, volume overload, this in the absence of any venous or lymphatic obstruction. Continue strict I and O, low sodium and 2 L fluid restriction diet. Albumin 25 mg 3 doses Lasix 20 mg IV daily Patient reports significant improvement with scrotal edema, as well as left leg edema, pain, redness today. Continue to monitor. (2) Sacral decubitus ulcer, stage IV Current Visit: Yes Status: Acute (3) History of nephrostomy Current Visit: Yes Status: Acute Assessment and plan: Patient with visualized purulent discharge from nephrostomy tubing. Bilateral nephrostomy and biliary drain tubes were exchanged per IR on August 27. We will continue vancomycin and Zosyn while we wait on repeat UA. (4) CKD (chronic kidney disease) stage 3, GFR 30-59 ml/min Current Visit: Yes Status: Acute Assessment and plan: Cr 2.18 which is close to baseline, GFR is 32. Avoid nephrotoxic agents as possible. Monitor renal function while on Lasix. Renal function is stable and at patient's baseline. (5) Leg edema, right Current Visit: Yes Status: Acute Assessment and plan: Patient reports chronic edema and pain to right leg, now significantly worsened. Has cellulitic appearance that is somewhat improved with IV ATB. Diminished pulses noted. Lower extremity venous Doppler negative for DVT. Arterial Doppler shows right lower extremity with nonstenotic plaque. Patient reports significant improvement today, though still edematous and patient still has pain. Patient has IV Dilaudid as well as home narcotic pain analgesics. Continue. We will continue IV antibiotics and continue to monitor for improvement. (6) Full code status Current Visit: Yes Status: Acute Assessment and plan: full code; verified with patient on 08/27/17. - Time Spent With Patient less than 15 minutes - Subjective Interval history: Patient was seen and assessed at 10:25 AM. Patient is alert and awake, exceptionally pleasant. Patient is very knowledgeable about all his drains. Patient reports right knee and calf pain that began the same time as the scrotal edema. Patient has noticeable swelling and redness to entire right lower extremity. Patient states that because the scrotal edema and swelling has decreased, but he still reports pain to knee and calf. He does have 0.5 mg of Dilaudid IV every 4 hours as needed. He also has oxycodone and OxyContin. At this time I do not feel that I will change any of these, I will begin to de- escalate the IV pain medication tomorrow. He denies any headache or blurred vision, no neck pain, no chest pain or shortness of breath. He denies any nausea, vomiting, diarrhea or abdominal pain. He has been seen by oncology. - Constitutional Vitals: Temp Pulse Resp BP Pulse Ox 99 F 81 19 97/61 98 08/28/17 14:55 08/28/17 14:55 08/28/17 14:55 08/28/17 14:55 08/28/17 14:55 General appearance: Present: cooperative, A&O X 3, pleasant, no acute distress, answers questions appropriately - Head Head exam: Present: atraumatic, normal inspection, normocephalic - Eye Eye exam: Present: normal appearance, conjuntiva pink, sclera anicteric - Neck Neck exam general surgery: Present: supple, trachea midline. Absent: lymphadenopathy, tenderness - Respiratory Respiratory exam: Present: CTAB. Absent: accessory muscle use, decreased breath sounds, rales, respiratory distress, rhonchi, wheezes - Cardiovascular Cardiovascular exam: Present: RRR, +S1, +S2. Absent: diastolic murmur, gallop, rubs, systolic murmur - GI/Abdominal GI/Abdominal exam: Present: normal bowel sounds, soft. Absent: distended, hepatomegaly, tenderness Additional comments: Patient has colostomy. - Extremities Exam Extremities exam: Present: tenderness, warm, radial pulses palpable and symmetrical. Absent: calf tenderness, cyanotic, normal capillary refill, normal inspection, pedal edema - Neurological Exam Neurological exam: Present: alert, oriented X3, no focal deficits, pronater drift. Absent: altered, facial droop, speech deficit - Skin Skin exam: Present: dry, intact, normal color, warm. Absent: rash Internal Medicine: Result - Labs CBC & Chem 7: 08/28/17 03:00 08/28/17 03:00 Labs: Short CBC 08/28/17 Range/Units 03:00 WBC 6.5 (4.3-11.1) K/mcL Hgb 8.2 L (12.9-16.9) g/dL Hct 25.5 L (37.5-50.1) % Plt Count 200 (140-400) K/mcL BMP 08/28/17 03:00 Sodium 140 Potassium 4.2 Chloride 107 Carbon Dioxide 26 BUN 29 H Creatinine 2.18 H Glucose 108 H Calcium 8.5 L Urine 08/28/17 Range/Units 03:00 Urine Color Yellow (Yellow) Urine Clarity Cloudy A (Clear) Urine pH 6.0 (5.0-8.0) pH Units Ur Specific [place] 1.010 (1.010-1.025) Urine Protein 30 H (Neg-Trace) mg/dL Urine Glucose (UA) Normal (Normal) mg/dL - ABG Interpretation ABG results: PT/INR, D-dimer PT 13.0 Seconds (9.4-12.1) H 08/27/17 10:20 Consult Discharge Plan - Plan Referrals: NONE,PCP [Primary Care Provider] -
[2017-08-29] MEDS: *HR* HYDROmorphone (PF) 1 MG/ML SYRINGE IVP PRN ×2 (00:54→16:25)
[2017-08-29] MEDS: Vancomycin 1,000 MG in D5% in Water 250 ML IVPB SCH (04:11)
[2017-08-29] MEDS: Piperacillin/Tazobactam 3.375 GM/200 ML BAG IVPB SCH ×3 (04:25→20:44)
[2017-08-29 04:41] LABS: Hematocrit 25.8 % (37.5-50.1); Mean Corpuscular Volume 93.5 fL (83.0-100.0); Mean Platelet Volume 9.4 fL (9.4-12.4); Platelet Count 183 K/mcL (140-400); Red Blood Count 2.76 M/mcL (4.19-5.50); Red Cell Distribution Width 16.8 % (11.5-14.5)
[2017-08-29] MEDS: *HR* OxyCODONE Immed Rel 15 MG TABLET PO PRN ×3 (05:04→22:33)
[2017-08-29 05:06] LABS: Calcium 8.3 mg/dL (8.6-10.3); Potassium 4.3 mEq/L (3.5-5.1)
[2017-08-29] MEDS: Furosemide 20 MG/2 ML VIAL IVP SCH (08:21)
[2017-08-29] MEDS: *HR* OxyCODONE ER (12 HR) 40 MG TABLET PO SCH ×2 (08:22→20:44)
[2017-08-29] MEDS: LONSURF PO SCH ×2 (08:25→20:44)
--- NOTE | 2017-08-29 10:27 | Internal Med Progress Note ---
Date of Encounter: 08/29/17 Time of Encounter: 09:30 - Assessment and plan (1) Scrotal edema Current Visit: Yes Status: Acute Assessment and plan: Significantly improved since hospitalization, however the pain persists due to which urology has been consulted continue Lasix support, will switch to PO supportive care pain control (2) Cellulitis of right lower extremity Current Visit: No Status: Acute Assessment and plan: clinically improving will continue empiric IV abx (Vancomycin Day 4, Zosyn Day 3) blood cultures preliminary report shows no growth, however he has history of VRE , MRSA bacteremia will closely monitor and de-escalate therapy as pt continues to clinically improve Will obtain xray of right knee given persistent pain and edema (3) Anemia Current Visit: No Status: Chronic Assessment and plan: H&H low but acceptable s/p 2unit PRBC transfusion on 08/26/16 no acute bleeding reported at this time will continue to closely monitor Qualifiers: Anemia type: due to chronic kidney disease Chronic kidney disease stage: stage 3 (moderate) Qualified Code(s): N18.3 - Chronic kidney disease, stage 3 (moderate); D63.1 - Anemia in chronic kidney disease; D63.1 - Anemia in chronic kidney disease (4) CKD (chronic kidney disease) stage 3, GFR 30-59 ml/min Current Visit: Yes Status: Acute Assessment and plan: Renal function at baseline will continue to closely monitor (5) DVT prophylaxis Current Visit: No Status: Acute Assessment and plan: Heparin SQ (6) History of nephrostomy Current Visit: Yes Status: Acute Assessment and plan: Bilateral nephrostomy and biliary drain tubes were replaced on Aug 27, 2017 by IR (7) Metastatic adenocarcinoma to colorectal region Current Visit: Yes Status: Chronic Assessment and plan: Oncology on board and consultation appreicated continue supportive care and pain control (8) Pressure ulcer of coccygeal region, stage 4 Current Visit: Yes Status: Chronic Assessment and plan: General surgery recommended supportive care continue BID dressing changes with Dakins solution outpatient follow up with surgery (9) Rectal cancer metastasized to pelvis Current Visit: No Status: Chronic - Subjective Interval history: Patient seen and examined with nurse present at bedside. Pt admitted for worsening scrotal edema and concern for LE cellulitis. Pt reports of significant improvement in his scrotal edema however the pain persists. He has bilateral nephrostomy tubes which were replaced during this hospitalization. Urology consultation requested for persistent pain reports of severe right knee pain that has not changed since hospitalization, will obtain 3View knee xray. - Constitutional Vitals: Temp Pulse Resp BP Pulse Ox 98.5 F 65 17 108/72 100 08/29/17 07:42 08/29/17 07:42 08/29/17 07:42 08/29/17 07:42 08/29/17 08:28 General appearance: Present: cooperative, A&O X 3, pleasant, no acute distress, answers questions appropriately - Head Head exam: Present: atraumatic, normocephalic - Eye Eye exam: Present: conjuntiva pink, sclera anicteric - Respiratory Respiratory exam: Present: CTAB. Absent: respiratory distress, wheezes - Cardiovascular Cardiovascular exam: Present: RRR, +S1, +S2. Absent: diastolic murmur, gallop, rubs, systolic murmur - GI/Abdominal GI/Abdominal exam: Present: normal bowel sounds, soft, no peritoneal signs. Absent: distended, tenderness - Extremities Exam Extremities exam: Present: tenderness (right knee edema and tenderness, right distal lower extremity erythema, no edema in b/l LE), warm, radial pulses palpable and symmetrical. Absent: calf tenderness - Back Exam Additional comments: b/l nephrostomy tubes in place - Neurological Exam Neurological exam: Present: alert, oriented X3 Internal Medicine: Result - Labs CBC & Chem 7: 08/29/17 04:10 08/29/17 04:10 Labs: Short CBC 08/29/17 Range/Units 04:10 WBC 4.8 (4.3-11.1) K/mcL Hgb 8.0 L (12.9-16.9) g/dL Hct 25.8 L (37.5-50.1) % Plt Count 183 (140-400) K/mcL BMP 08/29/17 04:10 Sodium 139 Potassium 4.3 Chloride 105 Carbon Dioxide 28 BUN 28 H Creatinine 2.02 H Glucose 136 H Calcium 8.3 L - ABG Interpretation ABG results: PT/INR, D-dimer PT 13.0 Seconds (9.4-12.1) H 08/27/17 10:20 Consult Discharge Plan - Plan Referrals: NONE,PCP [Primary Care Provider] -
[2017-08-29] MEDS ORDERED: Aminoglycoside Consult 1 EACH MC ONE (11:34)
[2017-08-29] MEDS: *HR* Heparin 5,000 UNIT/ML VIAL SQ SCH (16:25)
--- NOTE | 2017-08-29 17:39 | Urology - Consult Note ---
Date of Encounter: 08/29/17 Time of Encounter: 17:37 - Assessment and Plan (1) Scrotal edema Current Visit: Yes Status: Acute Assessment and plan: Most likely secondary to volume overload which has resolved with Lasix. Testicle pain may persist for a few days. This will likely resolve on its own. Follow-up as needed. Patient will need to continue with scrotal elevation at all times. Urology CN:HPI Consult date: 08/29/17 Reason for consult Urology: Other (scrotal swelling) Requesting physician: Jodie Renee History of present illness: Raj is a 52-year-old male with a history of metastatic colon cancer. Patient had recent admission secondary to some edema. Patient was given Lasix and states that his scrotal edema has dramatically improved. He still does have some residual discomfort in his scrotum and testicles. This is tolerable at this time. Past Med Surg Social Fam HX - Past Medical History Medical history: arthritis, cancer, GERD, hyperlipidemia, hypertension, malignancy, osteoporosis, renal disease Psychiatric history: no psych history - Past Surgical History Surgical History: cancer surgery, colectomy, colostomy, prostatectomy, other - Social History Smoking Status: Never smoker Smokeless Tobacco Status: No Alcohol use: none Drug use: none - Family History Son Living Status: Still Living Hx Family Cancer: Yes (mother had breast cancer) Medications and Allergies Prochlorperazine Maleate [Compazine] 10 mg PO Q8HR PRN #90 tablet 01/16/17 [Rx] Magnesium Oxide 500 mg PO BID #20 capsule 02/08/17 [Rx] Oxycodone HCl [Oxycontin] 80 mg PO Q12H #120 tab.er.12h 05/23/17 [Rx] Ondansetron ODT [Zofran ODT] 4 mg PO Q8H PRN #30 tab.rapdis 08/09/17 [Rx] Oxycodone HCl [Roxicodone 30 MG Immed Release] 30 - 60 mg PO Q6HR PRN #180 tablet 08/09/17 [Rx] Ciprofloxacin HCl [Cipro] 500 mg PO BID 08/27/17 [History] Multivitamin [One Daily Multivitamin] 1 tab PO DAILY 08/27/17 [History] Trifluridine/Tipiracil HCl [Lonsurf 20 mg-8.19 mg Tablet] 2 cap PO BID 08/27/17 [History] metroNIDAZOLE [Flagyl] 500 mg PO BID 08/27/17 [History] 3 Allergy/AdvReac Type Severity Reaction Status Date / Time meperidine [From Demerol] Allergy Vomiting Verified 08/27/17 20:45 nalbuphine [From Nubain] Allergy See Verified 08/27/17 20:45 Comments Review of Systems - Constitutional no chills, no fever(s) - EENT Nose, mouth and throat: no dizziness - Cardiovascular no chest pain - Respiratory no cough - Gastrointestinal no abdominal pain - Genitourinary as per HPI Exam Initial Vital Signs Temp Pulse Resp BP Pulse Ox 98.0 F 117 18 107/62 100 08/25/17 19:52 08/25/17 19:52 08/25/17 19:52 08/25/17 19:52 08/25/17 19:52 - General physical appearance Present: well developed, no distress - Eyes Present: PERRL. Absent: icteric - Neck Present: no masses, no lymphadenopathy - Cardiovascular Cardiovascular exam IM: RRR - Abdomen Abdomen: Present: soft (Colostomy in place with normal stool color) - Genitourinary other (Mild scrotal edema with tender testicles with no obvious cellulitis or abscess.) - Integumentary Present: no rash, no growths - Neurologic Present: normal coordination Urology Results - Labs 08/29/17 04:10 08/29/17 04:10 Abnormal lab results RBC 2.76 M/mcL (4.19-5.50) L 08/29/17 04:10 Hgb 8.0 g/dL (12.9-16.9) L 08/29/17 04:10 Hct 25.8 % (37.5-50.1) L 08/29/17 04:10 MCHC 31.0 g/dL (31.6-35.5) L 08/29/17 04:10 RDW 16.8 % (11.5-14.5) H 08/29/17 04:10 Nucleated RBCs/100 WBC 0.4 /100 WBC (0) H 08/26/17 03:47 ESR 80 mm/hr (0-10) H 08/26/17 03:47 PT 13.0 Seconds (9.4-12.1) H 08/27/17 10:20 BUN 28 mg/dL (6-20) H 08/29/17 04:10 Creatinine 2.02 mg/dL (0.70-1.30) H 08/29/17 04:10 Est GFR ( Amer) 42 (> 60) L 08/29/17 04:10 Est GFR (Non-Af Amer) 35 (> 60) L 08/29/17 04:10 Glucose 136 mg/dL (70-105) H 08/29/17 04:10 Calcium 8.3 mg/dL (8.6-10.3) L 08/29/17 04:10 Total Bilirubin 0.2 mg/dL (0.3-1.0) L 08/25/17 20:48 C-Reactive Protein 50 mg/L (Less than 10) H 08/26/17 03:47 Serum Total Protein 6.0 g/dL (6.4-8.9) L 08/25/17 20:48 Albumin 2.9 g/dL (3.5-5.7) L 08/25/17 20:48 Albumin/Globulin Ratio 0.9 (1.1-2.2) L 08/25/17 20:48 Urine Clarity Cloudy (Clear) A 08/28/17 03:00 Urine Protein 30 mg/dL (Neg-Trace) H 08/28/17 03:00 Urine Blood Moderate (Negative) H 08/28/17 03:00 Ur Leukocyte Esterase Small (Negative) H 08/28/17 03:00 Urine Microscopic RBC 15-30 per hpf (0-3) H 08/28/17 03:00 Urine Microscopic WBC 50-100 per hpf (0-3) H 08/28/17 03:00 Ur Squamous Epith Cells Moderate per lpf (None-Few) H 08/28/17 03:00 Urine Yeast Moderate per hpf (None Seen) H 08/28/17 03:00 Ur Culture Indicated? YES (NO) A 08/28/17 03:00 Diabetes panel 08/29/17 Range/Units 04:10 Sodium 139 (136-145) mEq/L Potassium 4.3 (3.5-5.1) mEq/L Chloride 105 (98-107) mEq/L Carbon Dioxide 28 (23-29) mEq/L BUN 28 H (6-20) mg/dL Creatinine 2.02 H (0.70-1.30) mg/dL Glucose 136 H (70-105) mg/dL Calcium 8.3 L (8.6-10.3) mg/dL Calcium panel 08/29/17 Range/Units 04:10 Calcium 8.3 L (8.6-10.3) mg/dL Pituitary panel 08/29/17 Range/Units 04:10 Sodium 139 (136-145) mEq/L Potassium 4.3 (3.5-5.1) mEq/L Chloride 105 (98-107) mEq/L Carbon Dioxide 28 (23-29) mEq/L BUN 28 H (6-20) mg/dL Creatinine 2.02 H (0.70-1.30) mg/dL Glucose 136 H (70-105) mg/dL Calcium 8.3 L (8.6-10.3) mg/dL Adrenal panel 08/29/17 Range/Units 04:10 Sodium 139 (136-145) mEq/L Potassium 4.3 (3.5-5.1) mEq/L Chloride 105 (98-107) mEq/L Carbon Dioxide 28 (23-29) mEq/L BUN 28 H (6-20) mg/dL Creatinine 2.02 H (0.70-1.30) mg/dL Glucose 136 H (70-105) mg/dL Calcium 8.3 L (8.6-10.3) mg/dL All other labs normal. Consult Discharge Plan - Plan Referrals: NONE,PCP [Primary Care Provider] -
[2017-08-30] MEDS: *HR* HYDROmorphone (PF) 1 MG/ML SYRINGE IVP PRN ×2 (01:37→16:50)
[2017-08-30] MEDS: Vancomycin 1,000 MG in D5% in Water 250 ML IVPB SCH (03:43)
[2017-08-30] MEDS: Piperacillin/Tazobactam 3.375 GM/200 ML BAG IVPB SCH (03:44)
[2017-08-30 04:39] LABS: Basophils % 0.5 %; Eosinophils # 0.1 K/mcL (0.0-0.6); Eosinophils % 1.8 %; Hematocrit 28.5 % (37.5-50.1); Hemoglobin 8.8 g/dL (12.9-16.9); Immature Granulocytes % 0.9 % (0-4); Lymphocytes # 1.3 K/mcL (0.6-4.6); Lymphocytes % 23.9 %; Mean Corpuscular HGB Conc 30.9 g/dL (31.6-35.5); Mean Corpuscular Hemoglobin 29.6 pg (28.0-33.3); Mean Platelet Volume 9.9 fL (9.4-12.4); Monocytes # 0.3 K/mcL (0.0-1.3); Monocytes % 5.3 %; Neutrophils # 3.7 K/mcL (1.6-8.9); Platelet Count 222 K/mcL (140-400); Red Blood Count 2.97 M/mcL (4.19-5.50); Red Cell Distribution Width 17.2 % (11.5-14.5); Segmented Neutrophils % 67.6 %
[2017-08-30 04:54] LABS: Calcium 8.4 mg/dL (8.6-10.3); Magnesium 1.5 mg/dL (1.6-2.6); Potassium 4.4 mEq/L (3.5-5.1)
[2017-08-30] MEDS: *HR* Heparin 5,000 UNIT/ML VIAL SQ SCH ×2 (05:05→16:59)
[2017-08-30] MEDS: *HR* OxyCODONE Immed Rel 15 MG TABLET PO PRN ×3 (05:06→22:54)
[2017-08-30] MEDS ORDERED: Magnesium Sulfate 1 GM in D5% in Water 100 ML IVPB ONE (09:09)
--- NOTE | 2017-08-30 09:55 | Internal Med Progress Note ---
Date of Encounter: 08/30/17 Time of Encounter: 09:20 - Assessment and plan (1) Scrotal edema Current Visit: Yes Status: Acute Assessment and plan: Significantly improved since hospitalization, however the pain persists Urology evaluation appreciated, continue lasix and outpatient follow up with urology recommended supportive care pain control (2) Cellulitis of right lower extremity Current Visit: No Status: Acute Assessment and plan: clinically improving will de-escalate to PO abx to complete therapy for 7-10 days depending on clinical response start Keflex 500mg PO BID (renally dosed) blood cultures preliminary report shows no growth, however he has history of VRE , MRSA bacteremia will closely monitor (3) Anemia Current Visit: No Status: Chronic Assessment and plan: H&H low but acceptable s/p 2unit PRBC transfusion on 08/26/16 no acute bleeding reported at this time will continue to closely monitor Qualifiers: Anemia type: due to chronic kidney disease Chronic kidney disease stage: stage 3 (moderate) Qualified Code(s): N18.3 - Chronic kidney disease, stage 3 (moderate); D63.1 - Anemia in chronic kidney disease; D63.1 - Anemia in chronic kidney disease (4) CKD (chronic kidney disease) stage 3, GFR 30-59 ml/min Current Visit: Yes Status: Acute Assessment and plan: Renal function at baseline will continue to closely monitor (5) DVT prophylaxis Current Visit: No Status: Acute Assessment and plan: Heparin SQ (6) History of nephrostomy Current Visit: Yes Status: Acute Assessment and plan: Bilateral nephrostomy and biliary drain tubes were replaced on Aug 27, 2017 by IR (7) Metastatic adenocarcinoma to colorectal region Current Visit: Yes Status: Chronic Assessment and plan: continue supportive care and pain control Right knee xray findings concerning for metastatic disease, oncology follow up requested (8) Pressure ulcer of coccygeal region, stage 4 Current Visit: Yes Status: Chronic Assessment and plan: General surgery recommended supportive care continue BID dressing changes with Dakins solution outpatient follow up with surgery (9) Rectal cancer metastasized to pelvis Current Visit: No Status: Chronic - Subjective Interval history: Patient seen and examined with nurse present at bedside. Reports of persistent scrotal pain and right knee pain. Scrotal edema improved from previous day. RLE erythema improved. Pt states he feels weak overall and the right knee pain is not getting better. Right knee xray reported numerous lucencies concerning for metastatic disease vs. infectious or inflammatory process. Pt has already been on broad spectrum IV abx for five days and given his underlying malignancy, it is highly suspicious that his current pain could be secondary to metastatic disease. Oncology follow up requested. PT evaluation recommended home health services. - Constitutional Vitals: Temp Pulse Resp BP Pulse Ox 97.4 F L 68 16 107/70 97 08/30/17 07:31 08/30/17 07:31 08/30/17 07:31 08/30/17 07:31 08/30/17 07:31 General appearance: Present: cooperative, A&O X 3 (fatigued), pleasant, no acute distress, answers questions appropriately - Head Head exam: Present: atraumatic, normocephalic - Eye Eye exam: Present: conjuntiva pink, sclera anicteric - Respiratory Respiratory exam: Present: CTAB. Absent: respiratory distress, wheezes - Cardiovascular Cardiovascular exam: Present: RRR, +S1, +S2. Absent: diastolic murmur, gallop, rubs, systolic murmur - GI/Abdominal GI/Abdominal exam: Present: normal bowel sounds, soft, no peritoneal signs. Absent: distended, tenderness Additional comments: colostomy intact, stool in colostomy bag - Additional comments: scrotal edema improved from previous day - Extremities Exam Extremities exam: Present: tenderness (right knee tenderness, RLE erythema improved from previous day), warm, radial pulses palpable and symmetrical. Absent: calf tenderness, pedal edema - Neurological Exam Neurological exam: Present: alert, oriented X3 Internal Medicine: Result - Labs CBC & Chem 7: 08/30/17 03:45 08/30/17 03:45 Labs: Short CBC 08/30/17 Range/Units 03:45 WBC 5.5 (4.3-11.1) K/mcL Hgb 8.8 L (12.9-16.9) g/dL Hct 28.5 L (37.5-50.1) % Plt Count 222 (140-400) K/mcL Neutrophils # 3.7 (1.6-8.9) K/mcL BMP 08/30/17 03:45 Sodium 139 Potassium 4.4 Chloride 105 Carbon Dioxide 27 BUN 30 H Creatinine 1.97 H Glucose 106 H Calcium 8.4 L - ABG Interpretation ABG results: PT/INR, D-dimer PT 13.0 Seconds (9.4-12.1) H 08/27/17 10:20 - Impressions Impressions Knee X-Ray 08/29/17 09:24 IMPRESSION: Numerous focal lucencies in the distal femur, proximal tibia and proximal fibula. Metastatic disease or an infectious or inflammatory process could give this appearance. D/ / Patricio Marsh MD / Patricio Marsh MD Interpreting Provider: Patricio Marsh MD Consult Discharge Plan - Plan Referrals: NONE,PCP [Primary Care Provider] -
[2017-08-30] MEDS: Furosemide 20 MG TABLET PO SCH (09:59)
[2017-08-30] MEDS: *HR* OxyCODONE ER (12 HR) 40 MG TABLET PO SCH ×2 (09:59→21:19)
[2017-08-30] MEDS: LONSURF PO SCH ×2 (10:32→21:03)
[2017-08-30] MEDS: cephALEXin 500 MG CAPSULE PO SCH ×2 (11:18→21:21)
[2017-08-30] MEDS: Gentamicin Oint 15 GM TUBE TP SCH (15:53)
[2017-08-31 04:29] LABS: Basophils % 0.6 %; Eosinophils # 0.1 K/mcL (0.0-0.6); Eosinophils % 2.3 %; Hemoglobin 8.3 g/dL (12.9-16.9); Lymphocytes # 1.2 K/mcL (0.6-4.6); Lymphocytes % 23.9 %; Mean Corpuscular HGB Conc 30.7 g/dL (31.6-35.5); Mean Corpuscular Volume 97.5 fL (83.0-100.0); Mean Platelet Volume 9.3 fL (9.4-12.4); Monocytes # 0.3 K/mcL (0.0-1.3); Monocytes % 6.4 %; Neutrophils # 3.2 K/mcL (1.6-8.9); Platelet Count 190 K/mcL (140-400); Red Blood Count 2.77 M/mcL (4.19-5.50); Red Cell Distribution Width 17.1 % (11.5-14.5); Segmented Neutrophils % 65.8 %
[2017-08-31 04:55] LABS: Calcium 8.5 mg/dL (8.6-10.3); Magnesium 1.7 mg/dL (1.6-2.6); Phosphorous 4.2 mg/dL (2.7-4.5); Potassium 4.7 mEq/L (3.5-5.1)
[2017-08-31] MEDS: *HR* OxyCODONE Immed Rel 15 MG TABLET PO PRN (05:00)
[2017-08-31] MEDS: *HR* Heparin 5,000 UNIT/ML VIAL SQ SCH (05:00)
[2017-08-31 07:25] VITALS: BP 112/75
[2017-08-31] MEDS: cephALEXin 500 MG CAPSULE PO SCH (08:25)
[2017-08-31] MEDS: LONSURF PO SCH (08:25)
[2017-08-31] MEDS: *HR* OxyCODONE ER (12 HR) 40 MG TABLET PO SCH (08:25)
[2017-08-31] MEDS: Furosemide 20 MG TABLET PO SCH (08:25)
[2017-08-31] MEDS ORDERED: predniSONE 20 MG TABLET PO SCH (09:00)
--- NOTE | 2017-08-31 09:15 | Discharge Summary ---
Date of Encounter: 08/31/17 Time of Encounter: 08:50 - Discharge Diagnosis (1) Scrotal edema Priority: Primary Status: Acute (2) Cellulitis of right lower extremity Priority: Primary Status: Acute (3) Anemia Priority: Secondary Status: Chronic Qualifiers: Anemia type: due to chronic kidney disease Chronic kidney disease stage: stage 3 (moderate) Qualified Code(s): N18.3 - Chronic kidney disease, stage 3 (moderate); D63.1 - Anemia in chronic kidney disease; D63.1 - Anemia in chronic kidney disease (4) CKD (chronic kidney disease) stage 3, GFR 30-59 ml/min Priority: Secondary Status: Chronic (5) DVT prophylaxis Priority: Secondary Status: Acute (6) History of nephrostomy Priority: Secondary Status: Chronic (7) Metastatic adenocarcinoma to colorectal region Priority: Secondary Status: Chronic (8) Pressure ulcer of coccygeal region, stage 4 Priority: Secondary Status: Chronic (9) Rectal cancer metastasized to pelvis Priority: Secondary Status: Chronic - Discharge Medications Prescriptions: cephALEXin [Keflex] 500 mg PO BID #9 capsule Furosemide [Lasix] 20 mg PO DAILY #5 tablet predniSONE [PredniSONE] 20 mg PO DAILY #5 tablet Home Medications: Prochlorperazine Maleate [Compazine] 10 mg PO Q8HR PRN #90 tablet 01/16/17 [Rx] Magnesium Oxide 500 mg PO BID #20 capsule 02/08/17 [Rx] Oxycodone HCl [Oxycontin] 80 mg PO Q12H #120 tab.er.12h 05/23/17 [Rx] Ondansetron ODT [Zofran ODT] 4 mg PO Q8H PRN #30 tab.rapdis 08/09/17 [Rx] Oxycodone HCl [Roxicodone 30 MG Immed Release] 30 - 60 mg PO Q6HR PRN #180 tablet 08/09/17 [Rx] Multivitamin [One Daily Multivitamin] 1 tab PO DAILY 08/27/17 [History] Trifluridine/Tipiracil HCl [Lonsurf 20 mg-8.19 mg Tablet] 2 cap PO BID 08/27/17 [History] metroNIDAZOLE [Flagyl] 500 mg PO BID 08/27/17 [History] Furosemide [Lasix] 20 mg PO DAILY #5 tablet 08/31/17 [Rx] cephALEXin [Keflex] 500 mg PO BID #9 capsule 08/31/17 [Rx] predniSONE [PredniSONE] 20 mg PO DAILY #5 tablet 08/31/17 [Rx] Allergies/Adverse Reactions: 3 Allergy/AdvReac Type Severity Reaction Status Date / Time meperidine [From Demerol] Allergy Vomiting Verified 08/27/17 20:45 nalbuphine [From Nubain] Allergy See Verified 08/27/17 20:45 Comments Procedures/tests Complete & Pending: Procedures Performed prior 72 hours Category Date Time Status COTY [EV ankle brachial index BI] Stat Y 08/29/17 07:46 Completed Date of admission: 08/26/17 21:55 Primary care physician: PCP NONE Consults: 08/27/17 08:54 Consult to Interventional Radiology [CONS] Routine Consulting Provider: Radiology Interventional Cols Reason for Consult: bilat neph tube exchange Call Completed: Yes 08/27/17 17:10 Consult to Physical Therapy [CONS] Routine Comment: Evaluate, develop and implement POC Reason for Consult: right leg pain and swelling. May need SNF OT [Consult to Occupational Therapy] [CONS] Routine Comment: Evaluate, develop and implement POC Reason for Consult: right leg pain and swelling. May need SNF 08/27/17 23:56 Consult to Wound Care [CONS] Routine Reason for Consult: Stage IV coccyx pressure ulcer. Call Completed: No 08/29/17 09:52 Consult to Urology [CONS] Routine Consulting Provider: Urologjana Brunson Reason for Consult: scrotal edema and pain Call Completed: Yes Discharging clinician: Jodie Renee Anticipated date of discharge: 08/31/17 - Patient Status Disposition: Home Health Service Condition: Good Functional capacity at discharge: uses cane/walker Overall status at discharge: patient is back to baseline - Discharge Instructions Follow Up With: NONE,PCP [Primary Care Provider] - Additional Instructions: Please follow up with oncology and primary care physician within five days after your discharge from the hospital. Please ask your oncologist about MRI of the right knee for further evaluation Continue low dose oral Prednisone as prescribed Continue Lasix until your follow up with your primary care physician. Ask your primary care physician about continuation of lasix. Follow up with urology as needed if the pain persists Continue oral antibiotics for four more days (Keflex). Resume all other home medications as prescribed by your primary care physician. Follow up with Dr. Martin (general surgery) in three weeks after your discharge from the hosptial - Diet and Activity Activity: as per physical therapy Diet: low salt diet Hospital course: Mr. Tabor is a 52 year old male with PMH of metastatic rectal ca s/p colostomy and bilateral nephrostomy tubes, CKD stage 3, HTN, HLD, arthritis, stage 4 sacral decubitis who was admitted for worsening scrotal edema and right lower extremity cellulitis. He was started on IV diuresis and empiric abx. He responded appropriately to therapy with resolution of the scrotal edema and improvement in the LE cellulitis. During this hospitalization, his bilateral nephrostomy tubes were replaced. He also persistently complained of right knee pain and Xray findings were concerning for metastatic disease vs. inflammation vs. infectious etiology. ONcology (Dr. Rebolledo) evaluated the patient and recommended outpatient MRI and low dose steroid. Pt to follow up with oncology after discharge. He is back to his baseline and is medically stable for discharge. Physical therapy evaluated the patient and recommended home health services. - Time Spent with Patient Total time spent providing and/or coordinating discharge services: Greater than 30 minutes - Constitutional Vitals: Temp Pulse Resp BP Pulse Ox 98.1 F 75 16 112/75 98 08/31/17 07:21 08/31/17 07:21 08/31/17 07:21 08/31/17 07:21 08/31/17 07:21 General appearance: Present: cooperative, A&O X 3 (fatigued), pleasant, no acute distress, answers questions appropriately - Head Head exam: Present: atraumatic, normocephalic - Eye Eye exam: Present: conjuntiva pink, sclera anicteric - Respiratory Respiratory exam: Present: CTAB. Absent: respiratory distress, wheezes - Cardiovascular Cardiovascular exam: Present: RRR, +S1, +S2. Absent: diastolic murmur, gallop, rubs, systolic murmur - GI/Abdominal GI/Abdominal exam: Present: normal bowel sounds, soft, no peritoneal signs. Absent: distended, tenderness - Extremities Exam Extremities exam: Present: warm, radial pulses palpable and symmetrical. Absent : calf tenderness - Neurological Exam Neurological exam: Present: alert, oriented X3
--- NOTE | 2017-08-31 09:27 | Physician Discharge Referral ---
Home Health/Hosp Referral Info Transfer to: Home Health Provider in Charge Post Discharge: PCP - Diagnosis (1) Scrotal edema Priority: Primary Status: Acute (2) Cellulitis of right lower extremity Priority: Primary Status: Acute (3) Anemia Priority: Secondary Status: Chronic (4) CKD (chronic kidney disease) stage 3, GFR 30-59 ml/min Priority: Secondary Status: Chronic (5) DVT prophylaxis Priority: Secondary Status: Acute (6) History of nephrostomy Priority: Secondary Status: Chronic (7) Metastatic adenocarcinoma to colorectal region Priority: Secondary Status: Chronic (8) Pressure ulcer of coccygeal region, stage 4 Status: Chronic (9) Rectal cancer metastasized to pelvis Priority: Secondary Status: Chronic - Respiratory Orders Smoking Cessation: Smoking cessation has been advised. For more information, call the [facility] Tobacco Quit Line at 5-930-EDFZNOW. - Services Needed Following services are medically necessary services: Nursing (wound care: daily wound care with gauze soaked in 0.25% Dakin's solution), Home Health Aide, Physical Therapy, Occupational Therapy - Transfer Medications Prescriptions: cephALEXin [Keflex] 500 mg PO BID #9 capsule Furosemide [Lasix] 20 mg PO DAILY #5 tablet predniSONE [PredniSONE] 20 mg PO DAILY #5 tablet Home Medications: Prochlorperazine Maleate [Compazine] 10 mg PO Q8HR PRN #90 tablet 01/16/17 [Rx] Magnesium Oxide 500 mg PO BID #20 capsule 02/08/17 [Rx] Oxycodone HCl [Oxycontin] 80 mg PO Q12H #120 tab.er.12h 05/23/17 [Rx] Ondansetron ODT [Zofran ODT] 4 mg PO Q8H PRN #30 tab.rapdis 08/09/17 [Rx] Oxycodone HCl [Roxicodone 30 MG Immed Release] 30 - 60 mg PO Q6HR PRN #180 tablet 08/09/17 [Rx] Multivitamin [One Daily Multivitamin] 1 tab PO DAILY 08/27/17 [History] Trifluridine/Tipiracil HCl [Lonsurf 20 mg-8.19 mg Tablet] 2 cap PO BID 08/27/17 [History] metroNIDAZOLE [Flagyl] 500 mg PO BID 08/27/17 [History] Furosemide [Lasix] 20 mg PO DAILY #5 tablet 08/31/17 [Rx] cephALEXin [Keflex] 500 mg PO BID #9 capsule 08/31/17 [Rx] predniSONE [PredniSONE] 20 mg PO DAILY #5 tablet 08/31/17 [Rx] Allergies/Adverse Reactions: 3 Allergy/AdvReac Type Severity Reaction Status Date / Time meperidine [From Demerol] Allergy Vomiting Verified 08/27/17 20:45 nalbuphine [From Nubain] Allergy See Verified 08/27/17 20:45 Comments Certification: Further, I certify that my clinical findings support that this patient is homebound (i.e. absences from home require considerable and taxing effort and are for medical reasons or mandaen services or infrequently or short duration when for other reasons) because: Homebound Reason: Patient requires assistance of a person or device to safely leave home Attestation: My signature below is to certify that this patient is under my care and that I, or nurse practitioner, or a physician's inside sales assistant working with me, has a face-to -face encounter with this patient.
[2017-08-31] MEDS: Gentamicin Oint 15 GM TUBE TP SCH (10:55)
--- NOTE | 2017-09-02 08:51 | Oncology Inp Progress Note ---
Date of Encounter: 09/02/17 Time of Encounter: 08:49 (1) Severe protein-calorie malnutrition Status: Chronic Assessment and plan: He had improvement with IV albumin (2) Metastatic adenocarcinoma to colorectal region Status: Chronic Assessment and plan: CT abdomen and pelvis on August 25, 2017 without contrast showed no new metastasis. His CEA is progressed in currently 1027 on July 15, 2017. on January his CEA was 350 but slowly progressed since then At this time will hold Lonsurf. Can resume that once his general addition improves. He is currently on off week just finished one cycle (3) Scrotal edema Status: Acute Assessment and plan: So has right lower extremity edema. Likely cellulitis. Blood cultures are negative .Is currently on IV vancomycin and Zosyn. His symptoms have improved Venous Doppler negative for acute DVT right lower extremity On discharge he develops pain in the right knee. No major effusion. We will start steroids prednisone 20 mg by mouth daily. His creatinine is 1.91 and will not be candidate for NSAIDs (4) Anemia Status: Chronic Assessment and plan: He received 2 units of packed rbc and current hemoglobin improved to 8.3. Qualifiers: Anemia type: unspecified type Qualified Code(s): D64.9 - Anemia, unspecified Oncology: Subj Interval history: In the right lower extremity has improved and shows the swelling. But he has increased pain on the right knee joint mainly posterior and medial aspect of the joint. No major effusion. X-ray showed nonspecific bone changes possible metastases versus infection - Constitutional Exam: GENERAL: Alert and oriented, well appearing. Mental Status: Affect appropriate for circumstances HEENT: Sclerae anicteric. No mucositis or thrush. No other oral or pharyngeal lesions or erythema. Skin: No rashes or petechiae. No evidence of skin malignancy Lymph nodes: No cervical, supraclavicular, axillary, or inguinal adenopathy. Lungs: Air entry normal with normal breath sounds. No rhonchi or wheezing Cardiovascular: Regular rate and rhythm. No skipped beats Abdomen: Soft, nontender; no organomegaly or masses palpable. Extremities: Right lower extremity 1+ edema. Scrotal edema is improved. Tenderness in the right knee posterior and medial aspect Neurologic: Alert, cranial nerves II-XII intact; normal gait; no focal weakness or sensory abnormalities Oncology: Obj Data - Labs CBC & Chem 7: 08/31/17 04:13 08/31/17 04:13 - ABG Interpretation ABG results: PT/INR, D-dimer PT 13.0 Seconds (9.4-12.1) H 08/27/17 10:20 Consult Discharge Plan - Plan Instructions: Colorectal Cancer (DC), Acute Pyelonephritis (DC) Additional Instructions: Please follow up with oncology and primary care physician within five days after your discharge from the hospital. Please ask your oncologist about MRI of the right knee for further evaluation Continue low dose oral Prednisone as prescribed Continue Lasix until your follow up with your primary care physician. Ask your primary care physician about continuation of lasix. Follow up with urology as needed if the pain persists Continue oral antibiotics for four more days (Keflex). Resume all other home medications as prescribed by your primary care physician. Follow up with Dr. Martin (general surgery) in three weeks after your discharge from the hospital Follow-up appointments: If there is not an appointment listed below, please call your physician and schedule a follow-up appointment. If you have congestive heart failure and your symptoms return, make an appointment with your physician. Medication List: Carry an up to date list of medications you are taking at all time. We have given you an updated medication list including any new medications that you have been prescribed. Please provide that list to your primary provider Symptoms: If your condition changes or you experience any of the following symptoms, notify your physician immediately: Unusual or worsening pain, fever, persistent nausea and vomiting, bleeding, increase in swelling (especially in your legs), sudden weight gain, extreme dizziness, chest pain, increased drainage or redness from a wound or incision. Go to the emergency department if you experience a problem with breathing. Weights: If you have a history of swelling or shortness of breath, weigh yourself daily and notify your physician if you have a weight gain of two or more pounds in one day or 5 or more pounds in a week. If you experience any of the warning signs for stroke: Sudden numbness or weakness of the face, arm or leg; especially on one side of the body, sudden confusion, trouble speaking or understanding, sudden trouble seeing in one or both eyes, sudden trouble walking, dizziness, loss of balance or coordination, sudden sever headache with no cause; Call 911 or go to the emergency room. Stroke is a medical emergency. Some risk factors for stroke: Age, cigarette smoking, diabetes, excessive alcohol consumption, family history , high blood pressure, overweight, physical inactivity, prior stroke, heart attack, diagnosis of carotid artery stenosis or other artery disease. If you smoke, STOP: Smoking or tobacco use significantly increases your risk of heart and lung disease. Your chance of disease greatly increases if you continue to smoke. For more information, call the [place] tobacco quit line for smoking cessation QUIT-NOW ( ) Referrals: Yung Salomon Jr, TELECOMMUNICATIONS OFFICER [Advanced Practice Nurse] - (We have requested a follow up appt for hematolgy. Office will call on Saturday to schedule an appt. ) NONE,PCP [Primary Care Provider] - (Please call [phone]) for assistance with obtaining a family Doctor. ) Prescriptions: cephALEXin [Keflex] 500 mg PO BID #9 capsule Furosemide [Lasix] 20 mg PO DAILY #5 tablet predniSONE [PredniSONE] 20 mg PO DAILY #5 tablet
== END 2017-08-31 11:35 | disposition home health service (06) | DRG 686 ==
LOC: EMEROO 19:52 → 3BNU 19:52 → SUATTDRO 08-26 21:55
PROVIDERS: ADMIT Internal Medicine; ATTEND Internal Medicine